=== PATIENT | male | born 1970 | race Caucasian/White ===

== ENCOUNTER 2018-12-03 12:10 | Inpatient (IN) | payer OTHER ==
[~2018-12-03] VITALS: Ht 185.4 cm; Wt 158.9 kg
[2018-12-03 12:12] VITALS: BP 156/92
[2018-12-03] MEDS ORDERED: LISINOPRIL10 MG PO (12:15)
[2018-12-03] MEDS ORDERED: CYMBALTA30 MG PO (12:16)
[2018-12-03] MEDS ORDERED: TRULICITY1.5 MG/0.5 SUBQ (12:17)
[2018-12-03] MEDS ORDERED: JARDIANCE25 MG PO (12:17)
[2018-12-03] MEDS ORDERED: DILTIAZEM HCL90 MG PO (12:18)
[2018-12-03] MEDS ORDERED: NEURONTIN 400400 M1 PO (12:18)
[2018-12-03 13:16] LABS: URINE BILIRUBIN NEGATIVE (Negative); URINE BLOOD TRACE (Negative); URINE CLARITY CLEAR; URINE COLOR YELLOW; URINE GLUCOSE-RANDOM* 3+ (Negative); URINE KETONES NEGATIVE (Negative); URINE LEUKOCYTES-REFLEX NEGATIVE (Negative); URINE NITRITE-REFLEX NEGATIVE (Negative); URINE PROTEIN (DIPSTICK) 2+ (Negative); URINE UROBILINOGEN 0.2 E.U./dl (0.2-1.0)
[2018-12-03 13:24] LABS: SQUAMOUS 0-3 Few /LPF (0-3)
[2018-12-03 13:25] LABS: BACTERIA-REFLEX None Seen /HPF (None Seen); CASTS None Seen /LPF (None Seen); CRYSTALS None Seen /LPF (None Seen); URINE RBC None Seen /HPF (0-2); URINE WBC-REFLEX 0-5 Rare /HPF (0-5)
[2018-12-03 13:41] LABS: ABSOLUTE NEUTROPHILS 7.4 thou/uL (1.4-8.2); BASOPHILS 0.7 % (0.0-2.0); EOSINOPHILS 0.8 % (0.0-3.0); HEMATOCRIT 39.9 % (42.0-52.0); HEMOGLOBIN 13.2 gm/dL (14.0-18.0); LYMPHOCYTES 21.4 % (24.0-44.0); MCH 28.8 pg (26.0-34.0); MCHC 33.1 g/dL (28.0-37.0); MCV 86.9 fL (80.0-100.0); MONOCYTES 7.2 % (1.0-8.0); PLATELET COUNT 328 thou/uL (150-400); POLYS 69.9 % (36.0-66.0); RDW 13.9 % (10.5-14.5); WBC 10.5 thou/uL (4.0-11.0)
[2018-12-03 13:49] LABS: CALCIUM 9.4 mg/dL (8.5-10.1); CREATININE 0.9 mg/dL (0.7-1.3); POTASSIUM 4.5 mmol/L (3.5-5.1)
[2018-12-03 13:55] LABS: ALBUMIN 2.7 g/dL (3.4-5.0); TOTAL BILIRUBIN 0.2 mg/dL (<0.1-1.0); TOTAL PROTEIN 8.3 g/dL (6.4-8.2)
[2018-12-03 16:17] VITALS: BP 147/85
[2018-12-03 17:10] VITALS: BP 153/93
--- NOTE | 2018-12-03 18:43 | NUR ---
ASSUMED CARE AT 1700, ADMISSION HISTORY AND EDUCATION DONE, MEDS GIVEN, ORDER ACKNOWLEDGED. WOUND PICTURE TAKEN. WILL CONTINUE TO ASSESS AND ASSIST WITH ADLs NEEDED.
[2018-12-03 19:40] VITALS: BP 145/85
--- NOTE | 2018-12-04 02:06 | NUR ---
[facility] 1899. PT ALERT AND ORIENTED. ADMISSION ASSESSMENT COMPLETE. IV DRESSING C/D/I. REPORTS PAIN, SEE EMAR. DENIES N/V. WET TO DRY DRESSING APPLIED TO TOE WOUND. CALL LIGHT AND PERSONAL BELONINGS WITHIN REACH, WILL CONTINUE POC UNTIL EOS.
[2018-12-04 05:58] LABS: ABSOLUTE NEUTROPHILS 5.3 thou/uL (1.4-8.2); BASOPHILS 0.7 % (0.0-2.0); EOSINOPHILS 1.5 % (0.0-3.0); HEMATOCRIT 38.2 % (42.0-52.0); HEMOGLOBIN 12.5 gm/dL (14.0-18.0); LYMPHOCYTES 24.7 % (24.0-44.0); MCH 28.6 pg (26.0-34.0); MCHC 32.7 g/dL (28.0-37.0); MCV 87.5 fL (80.0-100.0); MONOCYTES 8.5 % (1.0-8.0); PLATELET COUNT 310 thou/uL (150-400); POLYS 64.6 % (36.0-66.0); RBC 4.36 mil/uL (4.50-6.00); RDW 13.7 % (10.5-14.5); WBC 8.3 thou/uL (4.0-11.0)
[2018-12-04 06:03] LABS: CALCIUM 9.2 mg/dL (8.5-10.1); MAGNESIUM 1.9 mg/dL (1.8-2.4); POTASSIUM 5.3 mmol/L (3.5-5.1)
[2018-12-04 06:32] VITALS: BP 130/80
[2018-12-04 07:29] VITALS: BP 165/101
--- NOTE | 2018-12-04 09:27 | NUR ---
Pt assessed d/t screening risk for identified wound admit and BMI >40. Provider notes state L great toe infection. Per radiology impression, developing osteomyelitis not excluded. Hx: DM, diabetic foot ulcer, hx MSRA, osteo, PE/DVT, HTN. Met with pt at beside. He states appetite has been down the last few days "because of what is currently going on" (re: infection). Ate 20% dinner last night. Weight reduction not appropriate this visit, focused heavily on good nutrition, protein focus. Identified quality protein foods to choose, 1-2 sources/meal, and prioritizing protein first at meals while low appetite persists. He denies DM education d/t past education/understanding. AM BG 93 mg/dl. K+ currently high at 5.3. Malnutrition documented in provider note. Defer diagnosis at this time. No nutrition interventions desired by pt. Low nutrition risk at this time w / nutrition ed completed. Follow po trends.
--- NOTE | 2018-12-04 09:45 | NUR ---
PATIENT DISCHARGED FROM OT AT THIS TIME. IF PATIENT HAPPENS TO NEED A TOE AMPUTATION, WILL NEED NEW OT ORDERS TO RE-EVALUATE.
--- NOTE | 2018-12-04 15:07 | NUR ---
ASSESSMENT-PT LIVES IN AN APT ALONE. HE WALKS O N HIS OWN AND DOES HIS OWN ADLS. PT WAS WORKING AND DRIVING PRIOR TO ADMISSION. PT HAS HIS GIRLFRIEND IN THE AREA. CASE DISCUSSED WITH ATTENDING DR AND AWAITING WOUND CARE REC. FOR FURTHER DC PLANS AT THIS TIME. FOLLOWING TO ASSIST NEEDED.
[2018-12-04 16:13] VITALS: BP 167/87
--- NOTE | 2018-12-04 16:23 | NUR ---
WOUND CONSULT; ROUNDING WITH DR ABDUL AND MYRNA RN. THE RIGHT GREAT TOE IS GROSSLY INFECTED. THE PATIENT IS MISSING TOES ON THE SAME FOOT FROM A PROIR INFECTION AND IS WELL VERSED. SEE DR ABDUL'S NOTE. RECOMMENDATION; [facility] FOR NOW. SURGERY IS LIKLEY. DISCUSSED WITH STAFF
--- NOTE | 2018-12-04 16:58 | HC ---
[facility] [place] [address] CONSULTATION Name: MILLIE MUNOZ Room #: 422-P ADM IN M.R.#: [id number] Admission: 12/03/18 ������������������ Attend Phys: Lamont Lyle MD Discharge: ������������������ Date of : 70 Report #: [id number] THIS REPORT FOR: //name// CC: Flip Lyle DATE OF SERVICE: 12/03/2018 REASON FOR CONSULTATION: Evaluate left great toe gangrene. HISTORY OF PRESENT ILLNESS: The patient was a 48-year-old diabetic with peripheral neuropathy, previous left third, fourth and fifth toe amputations over the last several years, 2 weeks ago noted wound developed involving his left great toe. He found a jose nail in his shoe, treated as an outpatient with [id number] medications. Had not sought medical attention. Then worsened with increased pain in the toe, up his foot, lower leg into the medial aspect of his thigh and groin. No documented fever, chills or sweats. Overall, complains of malaise. Blood glucose levels he states had been less than 200, although he does note that his hemoglobin A1c was 11 last check. REVIEW OF SYSTEMS: Denies any cardiopulmonary, GI or complaints. Full 10-point review was negative other than what has been described above. ALLERGIES: None known. MEDICATIONS: As noted on his MAR including vancomycin and Zosyn. PAST MEDICAL HISTORY: Diabetes, hypertension, previous amputations of his left third, fourth and fifth toes. History of MRSA. Bilateral feet pulmonary emboli and DVT, previous renal failure, right ankle reconstructive surgery. FAMILY HISTORY: Noncontributory. SOCIAL HISTORY: Nonsmoker, no significant alcohol intake. 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 PHYSICAL EXAMINATION: VITAL SIGNS: Afebrile and hemodynamically stable. GENERAL: He is alert and cooperative and pleasant, in no acute distress. SKIN: With gangrene changes to his left first toe. Odorous drainage. Cellulitis extending up the left foot and lower leg with lymphangitis to his medial thigh and groin. Palpable adenopathy in the groin. Pulses were palpable on his foot. 2+ edema in the left lower leg. HEENT: Eyes without scleral icterus. Mouth without mucositis. NECK: Supple. LUNGS: Clear. [address] [address] CONSULTATION Name: MILLIE MUNOZ Room #: 422-P [facility] IN M.R.#: [id number] Admission: 12/03/18 ������������������ Attend Phys: Lamont Lyle MD Discharge: ������������������ Date of : 70 Report #: [id number] HEART: Regular, without murmur, gallop or rub. ABDOMEN: Soft and nontender with no hepatosplenomegaly or mass. GENITORECTAL: Not performed. NEUROLOGIC: Cranial nerves intact. Strength in his upper and lower extremities is normal. Sensation was decreased in his distal feet bilaterally. Mood normal. LABORATORY STUDIES: Reviewed. X-ray reviewed. Ultrasound of the venous system negative for DVT. Cultures reviewed, so far no growth. IMPRESSION: 1. Left great toe gangrene with evidence of osteomyelitis, distal phalanx. 2. Cellulitis and lymphangitis secondary to his toe infection. 3. Diabetes. 4. Peripheral neuropathy. 5. History of deep venous thrombosis, pulmonary embolism. 6. History of depression, controlled. 7. Hypertension. RECOMMENDATIONS: 1. We will continue broad antibiotic coverage. Surgical consultation for left toe amputation. This will need to be performed in order to gain control of this infection that is now involving the left foot and lower leg soft tissues. 2. Diabetic control. 3. Edema control. 4. We will continue combination antibiotic coverage pending culture results. ��������������������������������������������� <ELECTRONICALLY SIGNED> ���������������������������������������� By: Pramod Flores MD ��������������������������������������������� 12/04/18 1658 [id number] [id number] Pramod Flores MD /nt
[2018-12-04 19:52] VITALS: BP 133/85
--- NOTE | 2018-12-05 02:05 | NUR ---
ASSUMED PT CARE 1899. PT ALERT AND ORIENTED. REASSESSMENT COMPLETE. VSS. IV DRESSING C/D/I. DENIES N/V. REPORTS PAIN, SEE EMAR. CALL LIGHT WITHIN REACH, WILL CONTINUE POC UNTIL EOS
[2018-12-05 04:17] VITALS: BP 130/62
[2018-12-05 08:00] VITALS: BP 134/72
--- NOTE | 2018-12-05 12:36 | NUR ---
PATIENT ARE WAS ASSUMED AT 0715.PATIENT IS ALERT AND ORIENTED X4.PT HAS BEEN NPO AFTER MIDNIGHT, EXCEPT FOR A FEW MEDS IN THE AM.PATIENT IS SCHEDULED FOR SURGERY FOR L GREAT TOE AMPUTATION BY DR. Tamayo.PATIENT'S VITALS ARE STABLE, AT ROOM AIR,ACCU CHECK IS AT 77, NO INSULIN GIVEN,AND IV IS PATENT AND SALINE LOCKED.PATIENT HAS COMPLAINTS OF PAIN 10/10, PATIENT WAS GIVEN IV PAIN MEDS.PATIENT'S SURGERY CONSENT WAS SIGNED AND IN FRONT OF THE CHART.
--- NOTE | 2018-12-05 17:10 | O ---
[facility] [place] [address] OPERATIVE REPORT Name: MILLIE MUNOZ Room #: 422-P ADM IN M.R.#: [id number] Admission: 12/03/18 ������������������ Attend Phys: Lamont Lyle MD Discharge: ������������������ Date of : 70 Report #: [id number] THIS REPORT FOR: //name// CC: Flip Lyle DATE OF SERVICE: 12/05/2018 SERVICE: Orthopedics. FACILITY: [facility]. SURGEON: Fer Dai MD [employer] ATTENDANT: Madeline Reagan NP PREOPERATIVE DIAGNOSES: 1. Diabetes mellitus. 2. Diabetic foot wound, left foot. 3. Left great toe gangrene with osteomyelitis. 4. Status post previous left third, fourth and fifth toe amputations. POSTOPERATIVE DIAGNOSES: 1. Diabetes mellitus. 2. Diabetic foot wound, left foot. 3. Left great toe gangrene with osteomyelitis. 4. Status post previous left third, fourth and fifth toe amputations. PROCEDURE: Transmetatarsal amputation, left foot. COMPLICATIONS: None. DRAINS: None. SPECIMENS: Toes sent for pathology. ESTIMATED BLOOD LOSS: 5 mL. FINDINGS: 1. Amputation performed through the transmetatarsal level at the first and second toes. The wounds from the previous third, fourth and fifth amputations are completely healed and without any pathology, so no work was done there. 2. Transmetatarsal amputation performed in order to have appropriate contouring for both cosmesis and wound flap stability. HISTORY: The patient is a 48-year-old gentleman with diabetes, who had a jose [facility] [address] [place] [address] OPERATIVE REPORT Name: MILLIE MUNOZ Room #: 422-P ADM IN M.R.#: [id number] Admission: 12/03/18 ������������������ Attend Phys: Lamont Lyle MD Discharge: ������������������ Date of : 70 Report #: [id number] nail in his shoe that led to a diabetic wound. He presented to Emergency Room, was admitted to hospital, was placed on IV antibiotics. His wound indicated severe infection with osteomyelitis noted on the x-rays and so we had discussion about treatment options. He has previously had his third, fourth and fifth toes amputated and has had some complicated medical history related to these, prior diabetes complications. I felt that amputation of both the first and the second was most appropriate, that way it avoided the potential of future infection in the second toe and further surgery for another amputation as well as allowed for the cosmetic appearance of the foot postoperatively. In addition, this provides some additional skin for successful closure of the forefoot at the time of today's amputation. The patient was fully in agreement with this plan. Risks, benefits, alternatives and indications of surgery were discussed with him in detail. Risks included but not limited to pain, bleeding, infection, recurrence of the complication, wound breakdown, need for further surgery as well as complications related to anesthesia such as stroke, heart attack, pulmonary complications, thromboembolic disease and . Despite these risks, he wished to proceed. PROCEDURE IN DETAIL: After left lower extremity was correctly identified in the preop holding area as operative extremity, the patient was taken to the operating room where general anesthesia was induced without complication. He was padded appropriately. Prophylactic antibiotics were not administered as he is on antibiotic regimen currently. Tourniquet was applied to the left calf. Left leg was prepped and draped in standard sterile fashion. Timeout procedure was performed. Esmarch was not utilized. The leg was elevated and then tourniquet was inflated to 250 mmHg. An ellipsoid incision was made including the first and second toes proximal to the area of pathology. Full thickness skin flaps were taken down to the level of the bone and then an amputation was performed of the first and second toes through the metatarsophalangeal joints, both of these rays. The toe specimen was then passed off and the distal aspect of the metatarsals of the first and second were exposed, allowing access to the distal aspect of the metaphysis. Bone cutter was used to resect the articular segments and the metatarsal heads on both the first and the second. The sesamoids were removed as well. The wound was thoroughly irrigated. Tourniquet was let down, hemostasis was achieved. The edges were contoured so that there was a smooth surface on the bone for both the first and second metatarsals. Then we proceeded with closing. The deep layer was closed with an 0 Vicryl suture in [id number] fashion and then the skin was closed with a 3-0 Vicryl subcutaneous stitch, and then a 3-0 nylon diagonal mattress suture with suture knots placed dorsally. A soft sterile dressing was then applied. The patient was awakened from anesthesia and [address] [address] OPERATIVE REPORT Name: ALEXANDERMILLIE Room #: 422-P [facility] IN M.R.#: [id number] Admission: 12/03/18 ������������������ Attend Phys: Lamont Lyle MD Discharge: ������������������ Date of : 70 Report #: [id number] taken to recovery room in stable condition. No complications. All counts were correct. ��������������������������������������������� <ELECTRONICALLY SIGNED> ���������������������������������������� By: Fer Dai MD ��������������������������������������������� 12/05/18 1710 1312 1617 Fer Dai MD /nt
[2018-12-05 17:21] VITALS: BP 125/71
[2018-12-05 20:40] VITALS: BP 107/75
--- NOTE | 2018-12-06 04:41 | NUR ---
ASSUMED PT CARE 19+00. PT ALERT AND ORIENTED. REASSESSMENT COMPLETE. VSS. I DRESSING C/D/I. DRESSUING TO L FOOT C/D/I. PT REPORTS PAIN, SEE EMAR. DENIES N/V. CALL LIGHT WITHIN REACH, WILL CONTINUE POC UNTIL EOS.
[2018-12-06 05:51] VITALS: BP 112/69
[2018-12-06 05:54] LABS: HEMATOCRIT 38.9 % (42.0-52.0); HEMOGLOBIN 12.7 gm/dL (14.0-18.0); MCH 28.4 pg (26.0-34.0); MCHC 32.7 g/dL (28.0-37.0); MCV 86.9 fL (80.0-100.0); RBC 4.47 mil/uL (4.50-6.00); RDW 13.8 % (10.5-14.5); WBC 8.1 thou/uL (4.0-11.0)
[2018-12-06 06:20] LABS: POTASSIUM 4.7 mmol/L (3.5-5.1)
[2018-12-06 08:20] VITALS: BP 130/77
[2018-12-06 16:06] VITALS: BP 157/77
--- NOTE | 2018-12-06 16:31 | NUR ---
Assumed care of pt at 0700. Pt alert and oriented x4. Dressing clean and intact on left foot. Non-weight bearing on the left lower extremity. Pain controlled with prn pain medications. Call light within reach. Will continue to monitor.
[2018-12-06 19:47] VITALS: BP 153/88
[2018-12-07 03:52] VITALS: BP 160/77
--- NOTE | 2018-12-07 06:00 | NUR ---
A VERY DELIGHTFUL GENTLEMAN. LEFT GREAT TOE AMPUTATION SITE DRESSING DRY AND INTACT. FOOT WARM AND PINK. DILAUDID FOR PAIN. SLEPT AT INTERVALS TONIGHT VOIDING. WILL CONT TO MONITOR.
[2018-12-07 07:59] VITALS: BP 161/100
--- NOTE | 2018-12-07 08:26 | HC ---
[facility] [place] [address] CONSULTATION Name: MILLIE MUNZO Room #: 422-P [facility] IN M.R.#: [id number] Admission: 12/03/18 ������������������ Attend Phys: Lamont Lyle MD Discharge: ������������������ Date of : 70 Report #: [id number] THIS REPORT FOR: //name// CC: Flip Lyle DATE OF SERVICE: 12/04/2018 CHIEF COMPLAINT: Necrosis of the left great toe. HISTORY OF PRESENT ILLNESS: This is a 48-year-old male patient with a history of diabetes mellitus and prior osteomyelitis with multiple amputations of his third, fourth and fifth toes of the left foot. He apparently stepped on a jose nail about a week to 10 days ago and developed infection, drainage, odor, necrosis of the great toe. He was admitted through the Emergency Department with progressive swelling, drainage and necrosis. No fever, chills, vomiting or diarrhea. PAST MEDICAL HISTORY: Positive for history of diabetes mellitus with a history of osteomyelitis, previous amputations of the third, fourth and fifth toes, history of renal failure, MRSA infection, prior osteomyelitis as well as hypertension. SOCIAL HISTORY: Negative for alcohol or tobacco use. FAMILY HISTORY: Noncontributory. CURRENT MEDICATIONS: Include lisinopril, Cymbalta, Trulicity, Jardiance, Cardizem and Neurontin. ALLERGIES: No known drug allergies. REVIEW OF SYSTEMS: CONSTITUTIONAL: The patient denies fever, chills or weight loss. NEUROLOGICAL: The patient denies focal weakness, numbness or tingling. EYES: The patient denies visual changes, redness or drainage. ENT: The patient denies earache, nasal drainage or sore throat. CARDIOVASCULAR: The patient denies chest pain, palpitation or diaphoresis. PULMONARY: The patient denies cough or shortness of breath. GASTROINTESTINAL: The patient denies nausea, vomiting, diarrhea or abdominal pain. ORTHOPEDIC: The patient notes the ulceration and necrosis of his left great toe. Other systems in a 14-point review of systems are negative. PHYSICAL EXAMINATION: [facility] [address] [place] [address] CONSULTATION Name: MILLIE MUNOZ Room #: 422-P [facility] IN M.R.#: [id number] Admission: 12/03/18 ������������������ Attend Phys: Lamont Lyle MD Discharge: ������������������ Date of : 70 Report #: [id number] VITAL SIGNS: At this time include temperature 36.9, pulse 86, respiratory rate 19, blood pressure 165/101. GENERAL: This is a well-developed, well-nourished male patient who appears to be in minimal distress. HEENT: Head is normocephalic. Nose and throat clear. NECK: Supple. LUNGS: Clear. ABDOMEN: Soft. Bowel sounds present. EXTREMITIES: Lower extremities demonstrate palpable distal pulses. He has surgical absence of the third, fourth and fifth toes of the left foot. He has the great toe of the left foot as necrotic, swollen, erythematous, draining with foul smell. NEUROLOGIC: The patient is alert and oriented and appropriate. LABORATORY DATA: White blood cell count 8.3, hemoglobin 12.5, hematocrit 38.2, white blood cell count 138. Potassium 5.3, chloride 105, CO2 of 26, BUN 15, creatinine 1.0, glucose 103, calcium 9.2, magnesium 1.9. Albumin is low at 2.7. Arterial Doppler shows no evidence of significant left lower extremity arterial disease. X-ray evaluation of the left foot demonstrates soft tissue swelling over the first digit with soft tissue defect suggested over the first digit with soft tissue swelling. There is suggestion of some mild periosteal reaction and cortical thickening along the proximal medial aspect of the distal phalanx developing osteomyelitis not excluded. CLINICAL IMPRESSION: 1. Gangrenous change with infection of the left great toe. 2. Diabetes mellitus. 3. History of prior amputations of the third, fourth and fifth toes of the left foot. 4. Probable osteomyelitis. 5. Moderate protein calorie malnutrition. RECOMMENDATIONS: At this point in time, the patient will likely require surgical removal of the toe. Since he only has a second toe in addition to the great toe, a transmetatarsal amputation may be the most functional option for him. Orthopedics has been consulted. He will need intravenous antibiotic therapy. We will continue to follow him. I do not feel that there is any wound care options to preserve the integrity of his toe. I appreciate being asked to see him in consultation. ��������������������������������������������� <ELECTRONICALLY SIGNED> ���������������������������������������� By: Sergio Peña MD ��������������������������������������������� 12/07/18 0826 1533 0559 Sergio Peña MD /nt
--- NOTE | 2018-12-07 16:27 | NUR ---
ASSUMED CARE OF PT AT 0700. ASSESSMENT CHARTED. A&O,X4. C/O 10 LEFT FOOT AND TOE PAIN POD2, PAIN MEDS GIVEN ORDERED. SURGICAL DRESSING INTACT, CHANGED TODAY BY WOUND NURSE. NEW DAILY DRESSING CHANGES ORDERED. EDGAR SNIDERE. PT UP TO CHAIR WITH P.T. TODAY. ACHS, NO INSULIN GIVEN PER SLIDING SCALE. VSS. WILL CONTINUE TO MONITOR FREQUENTLY UNTIL EOS.
--- NOTE | 2018-12-07 17:11 | NUR ---
FAXED IV ABX ORDERS TO [facility] WITH H&P, ID PROGRESS NOTE AND NOTIFIED [facility] OF NEED FOR IV ABX AT DC. [facility] TO ISSUE A ROLLER WALKER FOR HOME ONCE DC DATE IS KNOWN.
--- NOTE | 2018-12-07 18:19 | NUR ---
Spoke with PT today who reports patient needs a bariatric knee scooter not offered here at [facility]. Patient weight 350. Sp with [facility] they do not have any Knee scooters. Sp with Jennifer they have no bariatric scooters encouraged casemgt to contact [facility], they do not contract with [facility]. [facility]. Cont to inquire into company provider.
--- NOTE | 2018-12-07 19:41 | NUR ---
CONSULTED TO PLACE A PICC FOR A PATIENT DISCHARGING ON HOME IV ANTIBIOTICS. ORDER AND CONSENT NOTED. THE PROCEDURE WELL BENIFITS AND RISK FOR DVT AND INFECTION DISCUSSED. HE VERBALIZED UNDERSTANDING. THE LEFT UPPER ARM BASILIC WAS WIDLEY PATENT. A #4F SINGLE LUMEN POWER PICC WAS PLACED PER HOSPITAL POLICY AFTER A BEDSIDE TIMEOUT WAS COMPLETE. LINE WAS 55CM AND ADVANCED WITHOUT DIFFICULTY. A STAT CHEST XRAY WAS ORDERED TO CONFIRM PLACEMENT
[2018-12-07 19:45] VITALS: BP 158/82
[2018-12-08] VITALS (7 sets, daily range): BP systolic 116–149; BP diastolic 72–96
--- NOTE | 2018-12-08 03:50 | NUR ---
[facility] PT CARE 1899. PT ALERT AND ORIENTED. REASSESSMENT COMPLETE, VSS. PICC INSERTED AND PLACEMENT CONFIRMED. REPORTS 02/18 PAIN, SEE EMAR. DENIES N/V. CALL LIGHT AND PERSONAL BELONINGS WITHIN REACH, WILL CONTINUE POC UNTIL EOS.
--- NOTE | 2018-12-08 10:00 | NUR ---
PT LYING IN BED. PT COMPLAINING OF PAIN TO LEFT FOOT OF 10 ON 1-10 SCALE. PT HAS PEDAL PULSE TO LEFT FOOT +2. NO SWELLING NOTICED. PT HAS PICC LINE TO LEFT UPPER ARM. PT NOT ABLE TO BEAR WEIGHT TO LEFT FOOT. PT STATED LAST BM 2 DAYS AGO. PT HAS BOWEL SOUNDS. GIVING PO HYDROCODONE, PT STATED HE WANTS DILAUDID NOW. ENCOURAGED PT TO TAKE PO MED SO IT WILL LAST LONGER. PT TAKING DILAUDID ON REG. BASIS. REMINDED PT HE WILL NOT BE ABLE TO TAKE IV PAIN MED AT HOME. PT LUNGS CLEAR. ADM HYDROCODONE 5MG PO AT 0954, THEN DILAUDID 1.5MG IV AT 1001.
--- NOTE | 2018-12-08 14:30 | NUR ---
IV NURSE HERE TO SHOW PT HOW TO USE PICC LINE FOR ANTIBIOTICS. ADM DILAUDID 1.5MG IV FOR PAIN TO LEFT FOOT. PT HAS BEEN UP IN CHAIR SINCE AROUND NOON.
--- NOTE | 2018-12-08 14:39 | NUR ---
ADM DILAUDID 1.5MG IV FOR PAIN TO LEFT FOOT.
--- NOTE | 2018-12-08 16:16 | NUR ---
ADM HYDROCODONE 5MG PO FOR PAIN TO LEFT FOOT.
--- NOTE | 2018-12-08 17:07 | NUR ---
PROVIDED PT WITH HIS IV ABX COVERAGE FOLLOWS [place] [id number] ded which he has met $160.09 and a $3500 out of pocket max which he has met $1755.56, he understands that depening on who bills first the hospital or the infusion company until he meets deductible his cost will be $701.05 then his 20% cost will drop to $140.21 per week. HE IS NOT INTERESTED IN GOING TO A SKILLED UNIT. [facility] ISSUED HIM A HEAVY DUTY ROLLER WALKER. HE SAYS HIS GIRLFRIEND WILL BE ABLE TO TRANSPORT HIM HOME. GIRLFRIEND IS A NURSE PRACTIONER. PT HAS DONE IV ABX IN THE PAST. ALERTED [facility] TO START CARE TOMORROW. PT WILL BE COMFORTABLE DOING HIS 2300 DOSE TONIGHT. STILL AWAITING FINAL DC ORDERS FOR TODAY. DIXIE FROM [employer] HERE TO DO IV ABX TEACHING THIS AFTERNOON.
[2018-12-08] MEDS ORDERED: MEROPENEM 1 GM V1 GM IV (18:11)
[2018-12-08] MEDS ORDERED: PERCOCET 10-321 EACH PO (18:12)
--- NOTE | 2018-12-08 19:56 | NUR ---
ADM DILAUDID 1.5MG IV FOR PAIN TO LEFT FOOT OF 10 ON 1-10 SCALE. HIS RIDE WILL NOT BE ABLE TO GET HIM UNTIL REAL LATE TONIGHT, GIRLFRIEND FLIGHT DELAYED AT THIS TIME. PT HAS BEEN UP IN CHAIR SINCE 1300.
[2018-12-09 03:47] VITALS: BP 128/75
--- NOTE | 2018-12-09 04:19 | NUR ---
ASSUMED CARE OF PT @1900. PT ASSESSED AT START OF SHIFT SITTING UP IN CHAIR PT A&OX4 WITH C/O LEFT FOOT PAIN. PAIN MED GIVEN FOR MANAGEMENT SEE EMAR. ABX INFUSING AND POC DONE. GIRLFRIEND ARRIVED TO UNIT AND AT BEDSIDE FOR THE NIGHT. @0130 PT TRANSFERRED BACK IN BED FOR THE NIGHT. WILL CONTINUE TO MONITOR TILL EOS
[2018-12-09 07:50] VITALS: BP 146/93
--- NOTE | 2018-12-09 12:01 | NUR ---
BARIATRIC KNEE SCOOTER LOCATED ON [employer] AND ALSO ON [employer] WEBSITE FOR AROUNF $145. PT WAS PROVIDED THIS INFORMTION. FINAL ORDERS FAXED TO [facility] AM.
--- NOTE | 2018-12-09 16:13 | NUR ---
ORDER FOR HEEL/TOE OFFLOADING BOOT OBTAINED AND FAXED TO [facility] REP HERE TO DELIVER ITEM AND PLACE ON PT'S FOOT. PHY TX HERE TO MAKE SURE PT AWARE HE IS TO BE NON-WT BEARING BUT CAN USE THIS FOR BALANCE ONLY WITH WALKER. DISCUSSED WITH THUY ALEXANDER NP.
[2018-12-09 16:58] VITALS: BP 174/62
[2018-12-09 17:00] VITALS: BP 136/83
--- NOTE | 2018-12-09 17:11 | PATH ---
[facility] [address] [place] [address] PATHOLOGY RPT PROCEDURE Name: MILLIE MUNOZ Room #: 422-P ADM IN M.R.#: [id number] ������������������ Admission: 12/03/18 ������������������ Date of : 70 Discharge: Report #: [id number] Path Case #: [id number] LCA Accession Number: [id number] . 01 Material submitted: . toe - LEFT 1ST AND 2ND TOES. Modifiers: left, first, second . 01 Clinical history: . Osteomyelitis left first and second toe . 02 Diagnosis: Toes, left first and second toes, amputation: - Marked acute inflammation involving skin, subcutaneous tissue and extending to underlying bone associated with acute osteomyelitis. - Margins of bone viable and free of acute inflammation. (IUV/db; 12/09/2018) LBQ/12/09/2018 . 02 Electronically signed: . Jelena Corrales MD, Pathologist NPI- [id number] . 01 Gross description: . The specimen is received in formalin, labeled "Millie Munoz, left first and second toes". Received are two amputated digits measuring 9.1 x 4.7 x 3.9 and 6.3 x 2.8 x 2.4 cm, with an overall total measurement of 9.3 x 7.4 x 3.9 cm in greatest dimensions. The bone margins are smooth and concave in appearance, consistent with disarticulation. The bone and soft tissue margins of the great toe are inked black and the bone and soft tissue margins of the second toe are inked blue. The nail of the great toe is light rivera and thickened in appearance. The epidermal surface on the dorsal and continued onto the plantar aspect displays a poorly circumscribed, irregular in contour, flaky and light rivera to gautam-brown lesion measuring 6.4 x 5.8 cm, which is 0.7 cm from the closest skin margin. The nail of the second toe is pale rivera and grossly unremarkable. The epidermal surface is pale rivera and wrinkled in appearance with no grossly distinct lesions. At the proximal aspect of the great toe, there is a slight amount of attached additional metatarsal bone during 1.5 x 1.0 x 1.0 cm in greatest dimensions. The specimen is submitted appeals representative as well as: . A1 appeals representative cross section of attached additional metatarsal bone on great toe, following decalcification A2-A5 full-thickness longitudinal cross-section of great toe, from proximal to distal aspects, following decalcification A6-A8 full-thickness longitudinal cross-section of second toe, from proximal to distal aspects, following decalcification. [address] [address] PATHOLOGY RPT PROCEDURE Name: MILLIE MUNOZ Room #: 422-P ADM IN M.R.#: [id number] ������������������ Admission: 07/25/19 ������������������ Date of : 70 Discharge: Report #: [id number] Path Case #: [id number] (CAA; 12/08/2018) QAC/QAC . 02 Pathologist provided ICD-10: M86.172 . 02 CPT . 142712, [id number] Specimen Comment: A courtesy copy of this report has been sent to Specimen Comment: [phone], , . Specimen Comment: Report sent to ,DR ONTIVEROS / DR DE LA CRUZ Performed at: [address] [facility] [address], [place] [id number] MD Nahid Foreman MD Phone: [phone] Performed at: [address] [facility] [address] [id number] MD Jelena Corrales MD Phone: [phone]
[2018-12-09 17:18] VITALS: BP 136/83
--- NOTE | 2018-12-09 18:21 | NUR ---
DISCHARGE PAPERS GONE OVER SIGNED AND COPY IN CHART. PICC IV IN PLACE TO LEFT UPPER ARM. PT TO HAVE HOME HEALTH AND IV ABT. ALL BELONGINGS PACKED AND SENT WITH PATIENT.
[2018-12-09 18:31] VITALS: BP 136/83
== END 2018-12-09 18:42 | disposition home health service (06) | DRG 616 ==
LOC: ER 12:10 → EROBS 15:18 → 4E 15:18
PROVIDERS: Nurse Practitioner; Orthopaedic Surgery Sports Medicine; Physician Assistant; ADMIT Internal Medicine
PROC: 0Y6N0Z9 Detachment at Left Foot, Partial 1st Ray, Open Approach (ICD-10-PCS; principal; 2018-12-05)
PROC: 0Y6N0ZB Detachment at Left Foot, Partial 2nd Ray, Open Approach (ICD-10-PCS; principal; 2018-12-05)
PROC: 02HV33Z Insertion of Infusion Device into Superior Vena Cava, Percutaneous Approach (ICD-10-PCS; 2018-12-07)
DX: E11.69 Type 2 diabetes mellitus with other specified complication (principal); E43 Unspecified severe protein-calorie malnutrition; I96 Gangrene, not elsewhere classified; L03.116 Cellulitis of left lower limb; M86.172 Other acute osteomyelitis, left ankle and foot; Z68.42 Body mass index [BMI] 45.0-49.9, adult; E11.621 Type 2 diabetes mellitus with foot ulcer; E11.628 Type 2 diabetes mellitus with other skin complications; E66.9 Obesity, unspecified; I10 Essential (primary) hypertension; E11.42 Type 2 diabetes mellitus with diabetic polyneuropathy; F32.9 Major depressive disorder, single episode, unspecified; Z86.718 Personal history of other venous thrombosis and embolism; Z86.711 Personal history of pulmonary embolism; Z79.899 Other long term (current) drug therapy; Z89.422 Acquired absence of other left toe(s); Z23 Encounter for immunization
CPT/HCPCS: 10084; 27000; 50010; 50101; 50386; 56526; 56527; 56528; 57091; 62110; 62900; 70005

== ENCOUNTER → 2018-12-16 | Outpatient (CLI) | payer OTHER ==
[~2018-12-16] MED LIST: CYMBALTA30 MG PO; DILTIAZEM HCL90 MG PO; JARDIANCE25 MG PO; LISINOPRIL10 MG PO; MEROPENEM 1 GM V1 GM IV; NEURONTIN 400400 M1 PO; PERCOCET 10-321 EACH PO; TRULICITY1.5 MG/0.5 SUBQ
== END ==
LOC: HYPER 06:54
DX: T87.89 Other complications of amputation stump (principal); L97.512 Non-pressure chronic ulcer of other part of right foot with fat layer exposed; E11.621 Type 2 diabetes mellitus with foot ulcer; E11.69 Type 2 diabetes mellitus with other specified complication; M86.372 Chronic multifocal osteomyelitis, left ankle and foot; L03.116 Cellulitis of left lower limb; E11.40 Type 2 diabetes mellitus with diabetic neuropathy, unspecified; E40 Kwashiorkor; R60.0 Localized edema; Z86.711 Personal history of pulmonary embolism; Z79.84 Long term (current) use of oral hypoglycemic drugs; Z86.718 Personal history of other venous thrombosis and embolism; Y83.5 Amputation of limb(s) as the cause of abnormal reaction of the patient, or of later complication, without mention of misadventure at the time of the procedure

== ENCOUNTER → 2018-12-24 | Outpatient (CLI) | payer OTHER | LOC: HYPER 06:40 | DX: T81.89XD Other complications of procedures, not elsewhere classified, subsequent encounter (principal); E11.621 Type 2 diabetes mellitus with foot ulcer; L97.512 Non-pressure chronic ulcer of other part of right foot with fat layer exposed; E11.69 Type 2 diabetes mellitus with other specified complication; M86.372 Chronic multifocal osteomyelitis, left ankle and foot; L03.116 Cellulitis of left lower limb; L03.115 Cellulitis of right lower limb; R60.0 Localized edema; E11.40 Type 2 diabetes mellitus with diabetic neuropathy, unspecified; E44.0 Moderate protein-calorie malnutrition; Z68.42 Body mass index [BMI] 45.0-49.9, adult; Z79.84 Long term (current) use of oral hypoglycemic drugs; Z86.718 Personal history of other venous thrombosis and embolism; Z86.711 Personal history of pulmonary embolism; Z89.422 Acquired absence of other left toe(s); Y83.8 Other surgical procedures as the cause of abnormal reaction of the patient, or of later complication, without mention of misadventure at the time of the procedure ==

== ENCOUNTER → 2019-01-14 | Outpatient (CLI) | payer OTHER | LOC: HYPER 07:30 | DX: T81.89XD Other complications of procedures, not elsewhere classified, subsequent encounter (principal); L97.512 Non-pressure chronic ulcer of other part of right foot with fat layer exposed; E11.621 Type 2 diabetes mellitus with foot ulcer; L84 Corns and callosities; L03.116 Cellulitis of left lower limb; L03.115 Cellulitis of right lower limb; E11.40 Type 2 diabetes mellitus with diabetic neuropathy, unspecified; E11.69 Type 2 diabetes mellitus with other specified complication; M86.372 Chronic multifocal osteomyelitis, left ankle and foot; E44.0 Moderate protein-calorie malnutrition; R60.0 Localized edema; Z89.422 Acquired absence of other left toe(s); Z86.718 Personal history of other venous thrombosis and embolism; Z79.84 Long term (current) use of oral hypoglycemic drugs; Y83.8 Other surgical procedures as the cause of abnormal reaction of the patient, or of later complication, without mention of misadventure at the time of the procedure ==

== ENCOUNTER → 2019-04-22 | Outpatient (CLI) | payer OTHER | LOC: HYPER 09:33 | DX: T81.31XD Disruption of external operation (surgical) wound, not elsewhere classified, subsequent encounter (principal); L03.115 Cellulitis of right lower limb; L03.116 Cellulitis of left lower limb; E11.40 Type 2 diabetes mellitus with diabetic neuropathy, unspecified; E44.0 Moderate protein-calorie malnutrition; E11.69 Type 2 diabetes mellitus with other specified complication; M86.372 Chronic multifocal osteomyelitis, left ankle and foot; L84 Corns and callosities; R60.0 Localized edema; Z86.711 Personal history of pulmonary embolism; Z86.718 Personal history of other venous thrombosis and embolism; Z79.84 Long term (current) use of oral hypoglycemic drugs; Z89.422 Acquired absence of other left toe(s); Y83.8 Other surgical procedures as the cause of abnormal reaction of the patient, or of later complication, without mention of misadventure at the time of the procedure ==

== ENCOUNTER → 2019-05-11 | Outpatient (CLI) | payer OTHER | LOC: HYPER 15:34 | DX: T81.31XD Disruption of external operation (surgical) wound, not elsewhere classified, subsequent encounter (principal); E11.621 Type 2 diabetes mellitus with foot ulcer; L97.521 Non-pressure chronic ulcer of other part of left foot limited to breakdown of skin; L84 Corns and callosities; L03.116 Cellulitis of left lower limb; L03.115 Cellulitis of right lower limb; E11.40 Type 2 diabetes mellitus with diabetic neuropathy, unspecified; E44.0 Moderate protein-calorie malnutrition; E11.69 Type 2 diabetes mellitus with other specified complication; M86.372 Chronic multifocal osteomyelitis, left ankle and foot; R60.0 Localized edema; Z89.422 Acquired absence of other left toe(s); Z86.718 Personal history of other venous thrombosis and embolism; Z79.84 Long term (current) use of oral hypoglycemic drugs; Y83.8 Other surgical procedures as the cause of abnormal reaction of the patient, or of later complication, without mention of misadventure at the time of the procedure ==

== ENCOUNTER → 2019-05-27 | Outpatient (CLI) | payer OTHER | LOC: HYPER 10:48 | DX: T81.31XD Disruption of external operation (surgical) wound, not elsewhere classified, subsequent encounter (principal); E11.621 Type 2 diabetes mellitus with foot ulcer; L97.522 Non-pressure chronic ulcer of other part of left foot with fat layer exposed; S91.302D Unspecified open wound, left foot, subsequent encounter; E11.69 Type 2 diabetes mellitus with other specified complication; M86.372 Chronic multifocal osteomyelitis, left ankle and foot; E11.40 Type 2 diabetes mellitus with diabetic neuropathy, unspecified; E44.0 Moderate protein-calorie malnutrition; R60.0 Localized edema; Z79.84 Long term (current) use of oral hypoglycemic drugs; Z89.422 Acquired absence of other left toe(s); Z86.718 Personal history of other venous thrombosis and embolism; Z86.711 Personal history of pulmonary embolism; X58.XXXD Exposure to other specified factors, subsequent encounter; Y83.8 Other surgical procedures as the cause of abnormal reaction of the patient, or of later complication, without mention of misadventure at the time of the procedure ==

== ENCOUNTER 2019-06-08 16:21 | Inpatient (IN) | payer OTHER ==
[~2019-06-08] VITALS: Ht 185.4 cm; Wt 170.1 kg
[2019-06-08 16:21] VITALS: BP 191/98
[2019-06-08] MEDS ORDERED: TRESIBA FL200 UNIT/1 SUBQ (16:47)
[2019-06-08] MEDS ORDERED: HUMALOG KW100 UNIT/1 SUBQ (16:47)
[2019-06-08 17:39] LABS: ABSOLUTE NEUTROPHILS 10.5 thou/uL (1.4-8.2); BASOPHILS 0.5 % (0.0-2.0); HEMATOCRIT 38.3 % (42.0-52.0); HEMOGLOBIN 12.4 gm/dL (14.0-18.0); LYMPHOCYTES 12.8 % (24.0-44.0); MCH 27.4 pg (26.0-34.0); MCHC 32.3 g/dL (28.0-37.0); MCV 84.9 fL (80.0-100.0); MONOCYTES 7.8 % (1.0-8.0); PLATELET COUNT 396 thou/uL (150-400); POLYS 77.9 % (36.0-66.0); RBC 4.51 mil/uL (4.50-6.00); RDW 14.5 % (10.5-14.5); WBC 13.5 thou/uL (4.0-11.0)
[2019-06-08 17:45] LABS: CALCIUM 9.8 mg/dL (8.5-10.1); CREATININE 1.6 mg/dL (0.7-1.3); POTASSIUM 4.6 mmol/L (3.5-5.1)
[2019-06-08 21:00] VITALS: BP 175/80
[2019-06-08 21:26] VITALS: BP 175/80
[2019-06-08 21:55] VITALS: BP 144/79
[2019-06-09 04:07] VITALS: BP 152/70
--- NOTE | 2019-06-09 04:58 | NUR ---
ADMITTED FROM ER UNDER 'S CARE. AXOX4. ISO FOR PREVIOUS MRSA. LFOOT CELLULITIS WITH DIABETIC FOOT ULCER. AM VITALS NOTED WITH TACHYCARDIA, TEMP 100.6. CALLED ANETA KIRK PLUMBING INSPECTOR AND REPORTED ABNORMAL VITAL SIGNS. ANETA KIRK SAID, PT IS BEING HYDRATED AND INITAIATED ON IV ATB, HAVING GOOD URINE OUTPUT. MONITOR FOR FURTHER CHAGNES PER STAFF ANALYST. WILL ENDORSE. PAIN TX PER MD ORDER. WILL CONT TO MONITOR CLOSELY
[2019-06-09 05:46] LABS: HEMATOCRIT 35.9 % (42.0-52.0); HEMOGLOBIN 11.3 gm/dL (14.0-18.0); MCH 26.9 pg (26.0-34.0); MCHC 31.6 g/dL (28.0-37.0); MCV 85.3 fL (80.0-100.0); RBC 4.21 mil/uL (4.50-6.00); RDW 14.7 % (10.5-14.5); WBC 12.2 thou/uL (4.0-11.0)
[2019-06-09 06:21] LABS: CALCIUM 8.4 mg/dL (8.5-10.1); CREATININE 1.4 mg/dL (0.7-1.3); POTASSIUM 4.5 mmol/L (3.5-5.1)
[2019-06-09 07:20] VITALS: BP 145/73
--- NOTE | 2019-06-09 13:33 | NUR ---
PT ADMITTED RELATED TO CELLULITIS, DIABETIC FOOT ULCER. CM REVIEWED CHART AND SPOKE WITH CARE TEAM. CM MET WITH PT AT BEDSIDE THIS DAY. PT IS A&O X4. CM ROLE INTRODUCED. PT INDICATED HE LIVES IN A RANCH STYLE HOUSE WITH 2 STEPS TO ENTER AND 2 STEPS INSIDE. 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 PT HAS A GIRLFRIEND WHO MAY BE ABLE TO ASSIST IS NEEDED UPON DC. PT INDICATED HE HAS A FWW SHOULD HE NEED IT UPON DC. PT HAD BEEN ON SERVICE WITH [facility] AND [facility] IN THE PAST. PT INDICATED HE PLANS TO RETURN HOME ONCE MEDICALLY STABLE.
--- NOTE | 2019-06-09 14:04 | NUR ---
WOUND CARE CONSULT; THE LEFT FOOT PLANTAR SURFACE WAS ASSESSED. A FISSURE WITH BRUISING. NO DRAINAGE AT THIS TIME. THE FOOT SEEMS WARMER ON THE LEFT THAN THE RIGHT. WE ARE AWAITING MRI RESULTS. RECOMMEDNATIONS; 1-DAILY FOLLOW UP 2-A BORDER FOAM DISCUSSED WITH STAFF
[2019-06-09 15:30] VITALS: BP 175/79
[2019-06-09 19:12] VITALS: BP 146/57
--- NOTE | 2019-06-09 19:59 | NUR ---
Received awake on bed. Due medications given as prescribed. On nothing per orem- pt informed and aware. Vital signs stable. On room air. A+Ox4. On blood sugar monitoring, taken and recorded accordingly, with sliding scale insulin given as prescribed. Continent of bowel and bladder, able to use toilet. With NS at 100cc/hr, infusing well at L AC. With wound at L leg, dressing in place, seen by wound team today, dressing changed. Maintained on isolation due to MRSA. Assisted in ADLs. Mouth care and ice chips provided. A/W MRI, checklist accomplished. Pt with critical value of Vanc 21.0, lab informed me at 0700am- found out that pt's Vanc trough was supposed to be drawn at 2330 instead lab did it at 0400- Dr Kaye, lab staff and pharmacy informed, re-ordered vanc trough at 2330. Pt went down for MRI, tolerated procedure well, transferred to room safely.Pt seen by Dr Crump- asked if pt can resume diet or with plans to have surgery today- as per Dr Crump, no surgery scheduled for today, to resume diet, will a/w MRI results and possible ortho consult, ?OM. Ortho consult called in by US, Dr Verma called back. Pt seen by Dr Verma- XR ordered, for NPO post midnight, possible surgery if Dr Valdez is available- maintenance mechanic 2nd shift nurse informed. Pt complaining of pain, due PRN pain medications given as prescribed. To continue monitoring patient.
[2019-06-10] VITALS (9 sets, daily range): BP systolic 116–147; BP diastolic 62–77
--- NOTE | 2019-06-10 04:15 | NUR ---
ASSUMED CARE AROUND 1914. AXOX4. ISO MAINTAINED, KEPT NPO POST MN FOR POSSIBLE ORTHO SURGERY IN AM. PAIN MEDS GIVEN PER MD ORDER. IV ATB TX CHANGED PER ID . NO S/S ACUTE DISTRESS NOTED OR REPORTED AT THIS TIME. WILL CONT TO MONITOR FOR ANY CHANGES IN CONDITION.
[2019-06-10 06:15] LABS: HEMATOCRIT 34.1 % (42.0-52.0); HEMOGLOBIN 10.9 gm/dL (14.0-18.0); MCH 27.3 pg (26.0-34.0); MCHC 31.9 g/dL (28.0-37.0); MCV 85.6 fL (80.0-100.0); RBC 3.99 mil/uL (4.50-6.00); RDW 14.6 % (10.5-14.5); WBC 9.9 thou/uL (4.0-11.0)
[2019-06-10 06:27] LABS: CALCIUM 8.8 mg/dL (8.5-10.1); CREATININE 1.4 mg/dL (0.7-1.3); POTASSIUM 3.8 mmol/L (3.5-5.1)
--- NOTE | 2019-06-10 11:51 | HC ---
[facility] [place] [address] CONSULTATION Name: MILLIE MUNOZ Room #: 453-P ADM IN M.R.#: [id number] Admission: 06/08/19 Attend Phys: Leroy Haines MD Discharge: Date of : 70 Report #: [id number] THIS REPORT FOR: //name// CC: Flip Haines DATE OF SERVICE: 06/09/2019 CHIEF COMPLAINT: Left foot infection. HISTORY OF PRESENT ILLNESS: This heavy 48-year-old gentleman has chronic diabetes and peripheral vascular disease. He has had previous left foot problems with transmetatarsal amputation in the past. He developed a small wound at the distal aspect of the third metatarsal, which was debrided 2 months ago. That wound appeared to heal in, but he now has more pain and swelling. MRI studies suggest a persistent abscess and involvement of the third metatarsal with suggestion of osteomyelitis extending all the way back to the base. The other metatarsals do not seem to be involved on MRI. On clinical exam, the left foot is tender and slightly puffy, but the skin and soft tissues appear to be generally healthy and well perfused. The small wound at the plantar aspect distally is actually healed and dry. There is no drainage. He has only mild discomfort along the medial and lateral aspect, but more significant discomfort in the mid foot, consistent with osteomyelitis involving the third metatarsal. I have reviewed the MRI images, but do not at this point have plain x-rays to give me a better sense of the bony architecture. I have had a lengthy discussion with the patient. Clearly, there appears to be an abscess and osteomyelitis involving the third metatarsal. I think this will require more aggressive debridement with complete removal of the third metatarsal. The next question is whether we can achieve soft tissue healing and maintain length in the other metatarsals at this point. If this is not feasible, then shortening back to the tarsometatarsal joint level would be the next option. Clearly, if he has further persistent infection, then a below-knee amputation may be required. Today, the soft tissue appearance would suggest that a more distal resection may be successful. I will review new x-rays when they are available. I am uncertain about OR scheduling opportunities. I will also try to discuss this with my partner, Dr. Valdez, who is our foot and ankle specialist. Pending these issues, we will talk again and consider whether surgical debridement might be feasible. <ELECTRONICALLY SIGNED> By: Jimeenz Verma MD 06/10/19 1151 1746 0447 Jimenez Verma MD /nt
--- NOTE | 2019-06-10 12:56 | NUR ---
PT WENT DOWN FOR DEBRIDEMENT OF LEFT FOOT AND EXCISION OF 3RD METATARSAL. CM TO FOLLOW INDICATED WITH DC PLANNING.
--- NOTE | 2019-06-10 14:23 | NUR ---
WOUND F/U; I WAS ASKED TO SEE THIS PATIENT BECAUSE OF ALARMS. THE VAC PROBLEM WAS IDENTIFIIED AND REPAIRED. DISCUSSED WITH RN
--- NOTE | 2019-06-10 21:31 | NUR ---
PT RECEIVED SURGERY TODAY. WOUND VAC IN PLACE AND FUNCTIONAL. SANGUINOUS DRAINAGE OF 50ML NOTED AT END OF SHIFT. PT REPORTS PAIN /. MEDS GIVEN ORDERED. PT PAIN DECREASED SLIGHTLY. PROVIDER NOTIFIED AND ORDERS RECEIVED. DISCUSSED PAIN MANAGEMENT WITH PATIENT AND HIS SIGNIFICANT OTHER, BOTH AGREEABLE WITH PLAN FOR PAIN CONTROL. PATIENT VOIDED ONETIME POSTOPERATIVELY. DENIES ANY NAUSEA. PT BEGAN CLEAR LIQUID DIET BUT NEEDS ENCOURAGEMENT TO TAKE IN NUTRITION. FALL PRECAUTIONS IN PLACE.
[2019-06-11 00:47] VITALS: BP 127/73
--- NOTE | 2019-06-11 06:26 | NUR ---
PT AOX4. PT REPORTS 8-9/10 PAIN IN LEFT FOOT. PT RECEIVING PRN IV MORPHINE Q4HR AND PRN PO OXYCODONE. PT DENIES SOA ON ROOM AIR. PT ABLE TO REPOSITION INDEPENDENTLY. PT TOLERATING CLEAR LIQUID PO INTAKE WITHOUT ISSUE. PT RESTING IN BED THROUGHOUT SHIFT. ENCOURAGED TO NOTIFY STAFF FOR ALL NEEDS. CALL LIGHT WITHIN REACH, BED ALARM ON, BED IN LOWEST POSITION.
--- NOTE | 2019-06-11 07:32 | O ---
[place] [address] OPERATIVE REPORT Name: MILLIE MUNOZ Room #: 453-P ADM IN M.R.#: [id number] Admission: 06/08/19 Attend Phys: Leroy Haines MD Discharge: Date of : 70 Report #: [id number] THIS REPORT FOR: //name// CC: Flip Haines DATE OF SERVICE: 06/10/2019 PREOPERATIVE DIAGNOSIS: Infected left foot with third metatarsal osteomyelitis and abscess. POSTOPERATIVE DIAGNOSIS: Infected left foot with third metatarsal osteomyelitis and abscess. PROCEDURE: Debridement, left foot with excision of infected third metatarsal. SURGEON: Jimenez Verma MD INDICATIONS: This heavy 48-year-old gentleman with chronic diabetes and peripheral vascular disease has had multiple previous surgical procedures on the left foot. He now has a persistent wound, infected with MRSA and evidence of osteomyelitis involving the third metatarsal. This extends through most of that bone, but the other mid foot does not seem to be involved. We have discussed treatment options including a very short mid foot amputation or below-knee amputation. He understands, but hopes to preserve his foot if possible. Therefore, we have elected to go ahead with debridement of the obviously infected third metatarsal and associated soft tissues. He understands this may or may not heal in and he may require more proximal amputation in the future. DESCRIPTION OF PROCEDURE: The patient was taken to the operating room where he was placed under general anesthesia. He is already on an antibiotic regimen. The left foot and leg were meticulously prepped and draped and a thigh tourniquet inflated to 350 mmHg. A dorsal longitudinal skin incision was made overlying the third metatarsal. This was carried through subcutaneous tissues to expose the bone. There was obvious atrophy and disruption of the bone with surrounding soft tissue edema consistent with infection or abscess. An aggressive debridement of both the soft tissues and any remnants of the third metatarsal was performed. The second and fourth metatarsals seemed to be intact with reasonable strength and stability. I did not feel further debridement of those bones was necessary. The more distal aspect of the wound extended to the small skin wound, which had been previously debrided some months ago at the distal plantar aspect. This area was included in the wound and aggressively irrigated using pulsatile lavage. A C-arm view was obtained demonstrating that there was complete resection of the third metatarsal. The other bones appear to be intact and stable on this plain x-ray. The tourniquet was deflated. Good hemostasis was established. There seems to be adequate blood flow to the soft [address] [address] OPERATIVE REPORT Name: MILLIE MUNOZ Room #: 453-P [facility] IN M.R.#: [id number] Admission: 06/08/19 Attend Phys: Leroy Haines MD Discharge: Date of : 70 Report #: [id number] tissues. A wound VAC was placed in the wound. Sterile dressing was applied. The patient was awakened and returned to recovery room in good condition. <ELECTRONICALLY SIGNED> By: Jimenez Verma MD 06/11/19 0732 1147 1213 Jimenez Verma MD /nt
[2019-06-11 07:50] VITALS: BP 118/64
--- NOTE | 2019-06-11 11:11 | HC ---
[facility] [place] [address] CONSULTATION Name: MILLIE MUNOZ Room #: 453-P ADM IN M.R.#: [id number] Admission: 06/08/19 Attend Phys: Leroy Haines MD Discharge: Date of : 70 Report #: [id number] THIS REPORT FOR: //name// cc: Flip Hickey James A. DO ~ THIS REPORT FOR: //name// CC: Jimenez Crump Sherri Haines DATE OF SERVICE: 06/10/2019 WOUND CARE CONSULTATION PERSONAL PHYSICIAN: Dr. Hickey. CHIEF COMPLAINT: Left foot surgical wound. HISTORY OF PRESENT ILLNESS: This is a 48-year-old white male we have been following in the wound clinic for a surgical wound on his left foot, secondary to diabetic foot ulcer and subsequent osteomyelitis. The patient had initial surgical debridement several weeks ago by Dr. Crump, and was actually doing fairly well until recently. His left foot started having increased swelling despite being on Augmentin and Bactrim. The patient was seen by Dr. Crump in his office, had x-rays that showed third metatarsal destruction of the proximal shaft. The patient then was sent to the Emergency Department and was seen in consultation by Dr. Jimenez Verma, and was taken to the operating room where he had debridement of left foot on the dorsal aspect and excision of the third metatarsal. The patient had wound VAC placed in the operating room, and we have been asked to assist in the care of the wound at this time. PAST MEDICAL HISTORY: Significant for diabetes mellitus, acute on chronic kidney disease, peripheral neuropathy, previous foot surgeries secondary to osteomyelitis. The patient has a history of hypertension, DVT, pulmonary embolism. CURRENT MEDICATIONS: Multiple, I have reviewed the patient's medication list. DRUG ALLERGIES: None. SOCIAL HISTORY: The patient does not smoke or drink alcohol. FAMILY HISTORY: Not pertinent to current medical condition. [address] [address] CONSULTATION Name: MILLIE MUNOZ Room #: 453-P ADM IN M.R.#: [id number] Admission: 06/08/19 Attend Phys: Leroy Haines MD Discharge: Date of : 70 Report #: [id number] REVIEW OF SYSTEMS: CONSTITUTIONAL: The patient denies fevers or chills at this time. NEUROLOGIC: The patient complains of some mild sedation at this time secondary to the recent surgery earlier today. Denies any numbness, tingling or weakness in arms or legs. EYES: No complaints. ENT: No complaints. CARDIAC: The patient denies chest pain or palpitations. He has chronic lower extremity edema. RESPIRATORY: The patient denies shortness of breath, cough or wheezes. GASTROINTESTINAL: The patient denies nausea, vomiting or abdominal pain. GENITOURINARY: The patient denies urgency or frequency. MUSCULOSKELETAL: No complaints. SKIN: The patient has a surgical wound on the left foot with a wound VAC in place. PHYSICAL EXAMINATION: VITAL SIGNS: The patient is afebrile, pulse 88, respirations 16, BP 123/71. GENERAL: This is an alert and oriented x 3, slightly groggy white male who is in no obvious distress. HEENT: He is normocephalic, atraumatic. Mucous membranes are dry. Pupils are round, sclerae white. NECK: Supple, nontender. LUNGS: Clear. HEART: Regular. ABDOMEN: Soft, nontender. EXTREMITIES: The patient moves all extremities without difficulty. Evaluation of bilateral lower extremities reveals 1+ edema. Distal pulses intact. The patient is neuropathic in his lower extremities. Evaluation of the left foot reveals a wound VAC to be in place and functioning well at 125 mmHg suction, continuous. The wound is on the dorsal aspect of the foot, plantar aspect of the foot is intact. Bilateral heels are intact. NEUROLOGIC: Cranial nerves 2-12 grossly intact. Motor and sensory grossly intact. LABORATORY DATA: White count 9.9, hemoglobin 10.9. Sed rate 101, BUN 39, creatinine 1.4, albumin 2.7. IMPRESSION: 1. Surgical wound on dorsal aspect of the left foot, status post excision of osteomyelitic third metatarsal. 2. History of third metatarsal osteomyelitis. 3. Diabetes mellitus. 4. Protein-calorie malnutrition ? moderate with albumin of 2.7. 5. Hypertension. 6. History of deep venous thrombosis with pulmonary embolism. [address] [address] CONSULTATION Name: MILLIE MUNOZ Room #: 453-P [facility] IN M.R.#: [id number] Admission: 06/08/19 Attend Phys: Leroy Haiens MD Discharge: Date of : 70 Report #: [id number] PLAN: We will continue with the wound VAC therapy to the left foot, 125 mmHg continuous suction; we will change this 3 times weekly. Continue with IV antibiotics per Infectious Disease. I spoke with the orthopedic surgeon, Dr. Jimenez Verma. He said at this time, he does not plan any further orthopedic surgical interventions, and we will continue to manage the wound and he will be available if necessary. We will maximize the patient's oral protein supplementation for healing. We will utilize physical and occupational therapy for strengthening as the patient is able. We will continue all other current medications as well. We will continue to follow the patient. <ELECTRONICALLY SIGNED> By: Bryant Lobo MD 06/11/19 1111 1812 0152 Bryant Lobo MD /nt
[2019-06-11 11:57] VITALS: BP 155/89
--- NOTE | 2019-06-11 13:00 | NUR ---
Nutrition: Pt assessed for BMI > 40 (49.5 kg/m2). Also seen for identification of wounds. Admit: cellulitis, diabetic foot ulcer. Is s/p surgery 06/10 with debridement of L foot and excision of 3rd metatarsal. Has a wound vac. Per EMR, may possibly need more aggressive, higher amputation if fails to heal. Visited at bedside. Pt limited to clear liquids yesterday and so far this AM. Diet may be advanced later today. Discussed nutrition importance and increased protein needs. Educated on all food sources of high quality protein. Presented oral nutrition supplement options. Pt declined all supplements, even Beneprotein modular, prefering to focus on real food sources. Recommended goal of 2 per meal. Otherwise, no other nutrition concerns. Pt very accepting of nutrition information. Low nutrition risk.
--- NOTE | 2019-06-11 14:38 | NUR ---
CARE TEAM INDICATED THAT PT HAD WOUND VAC PLACED YESTERDAY AND THAT PT IS GETTING IV ABX AND CONTINUED WOUND CARE. IT IS ANTICPATED THAT PT WILL BE HERE OVER THE WEEKEND. CM TO FOLLOW INDICATED WITH DC PLANNING.
--- NOTE | 2019-06-11 18:10 | NUR ---
CONSULTED TO PLACE A PICC FOR HOME IV ANTIBIOTICS. ORDER AND CONSENT NOTED. A #4F SINGLE LUMEN PICC WAS PLACED PER HOSPITAL POLICY AFTER A BEDSIDE TIMEOUT WAS COMPLETE. PICC WAS TRIMMED TO 53CM AND ADVANCED WITHOUT DIFFICULTY. LINE WAS CONFIRMED IN GOOD POSITION BY A STAT CHEST XRAY
--- NOTE | 2019-06-11 18:42 | NUR ---
Assumed pt care this am, wound vac in place and draining sanguinous fluids. Pt requires pain meds on the dot and no relief is notes for long periods. Maintained on clear liquids, blood sugar checks done with insulin as per emar given. VS stable, Isolation maintained. POC followed, transferred to 447, endorsed to the night nurse.
[2019-06-11 21:50] VITALS: BP 154/87
--- NOTE | 2019-06-12 03:13 | NUR ---
06/11/191929 ASSUMED CARE OF PT AFTER BEDSIDE REPORT. PT RESTING IN BED STATES PAIN TO LEFT FOOT 2044 ASSESSMENT COMPLETED, SEE ASSESSMENT. PT WITH COMPLAINTS OF PAIN TO L FOOT, WOUND VAC IN PLACE AND SUCTION PRESENT. PICC LINE FLUSHED WELL AFTER BLOOD RETURN, IV ABX INFUSING ORDERED. PAIN MEDS GIVEN PER DR ORDER PRN FOR PAIN, WILL CONTINUE WITH HOURLY ROUNDING. PT CHANGES POSITIONS ON HIS OWN AND USES A BUCKET FOR URINATION.
[2019-06-12 04:45] LABS: HEMOGLOBIN 10.5 gm/dL (14.0-18.0); MCH 26.9 pg (26.0-34.0); MCHC 31.8 g/dL (28.0-37.0); MCV 84.6 fL (80.0-100.0); RBC 3.9 mil/uL (4.50-6.00); RDW 14.6 % (10.5-14.5); WBC 6.6 thou/uL (4.0-11.0)
[2019-06-12 05:15] VITALS: BP 137/80
[2019-06-12 05:40] LABS: CALCIUM 8.6 mg/dL (8.5-10.1); POTASSIUM 3.9 mmol/L (3.5-5.1)
[2019-06-12 08:26] VITALS: BP 162/87
[2019-06-12 17:02] VITALS: BP 151/82
[2019-06-12 19:52] VITALS: BP 135/75
--- NOTE | 2019-06-12 21:43 | NUR ---
ASSESSMENT COMPLETED.PT SIITING IN THE CHAIR. WOUND VAC IN PLACE AND WORKING FINE. AFEBRILE.DENIES NAUSEA. PT LEVEL OF PAIN IS 7. PT WANTS TO WAIT AND GET MOPHINE IN 45 MINS.
[2019-06-13 04:03] VITALS: BP 139/90
[2019-06-13 07:55] VITALS: BP 151/80
--- NOTE | 2019-06-13 10:06 | PATH ---
[facility] [address] [place] [address] PATHOLOGY RPT PROCEDURE Name: MILLIE MUNOZ Room #: 438-P ADM IN M.R.#: [id number] Admission: 06/08/19 Date of : 70 Discharge: Report #: [id number] Path Case #: [id number] [facility] Accession Number: [id number] . 01 Material submitted: . toe - LEFT THRID METATARSAL. Modifiers: left, third . 01 Clinical history: . Infected left foot with osteomyelitis. . 02 Diagnosis: Third left metatarsal, debridement: - Bone with marked acute osteomyelitis as well as osteonecrosis. (IUV/db; 06/11/2019) LBQ 06/11/2019 1542 Local . 02 Electronically signed: . Jelena Corrales MD, Pathologist NPI- [id number] . 01 Gross description: . Received in formalin labeled "Millie Munoz, left third metatarsal" are two irregular portions of rivera-white bone measuring 1.7 x 1.7 x 1.4 cm and 3.0 x 2.4 x 1.4 cm. Multiple surgical resection margins are identified. The specimen is not inked due to its fragmented nature. Temporary Staff Accountant sections of both pieces are submitted in cassettes A1-A2 following decalcification. ([facility]; 06/10/2019) [facility] 06/10/2019 1724 Local . 02 Pathologist provided ICD-10: M86.172, M87.9 . 02 CPT . 439740, 345460 Specimen Comment: A courtesy copy of this report has been sent to [phone] Specimen Comment: [phone], Specimen Comment: Report sent to ,DR BAUTISTA / DR DE LA CRUZ Performed at: [address], [place], [place] [id number] MD Nahid Foreman MD Phone: [phone] Performed at: [address] [id number] MD Jelena Corrales MD Phone: [phone]
[2019-06-13 16:13] VITALS: BP 145/86
[2019-06-13 19:40] VITALS: BP 148/83
--- NOTE | 2019-06-14 02:56 | NUR ---
ASSUMED PT CARE AT 1900. PT REPORTS PAIN 02/18, MORPHINE PROVIDING RELIEF. ANTIBIOTICS AND FLUIDS INFUSING PER ORDER. ISOLATION D/C TONIGHT. WOUND VAC DRAINING PROPERLY. PICC LINE FLUSHED WITH GOOD BLOOD RETURN. PT IN CHAIR WATCHING TV ALL EVENING.
[2019-06-14 03:40] VITALS: BP 136/72
[2019-06-14 05:23] LABS: HEMATOCRIT 35.2 % (42.0-52.0); HEMOGLOBIN 11.2 gm/dL (14.0-18.0); MCH 26.8 pg (26.0-34.0); MCHC 31.8 g/dL (28.0-37.0); MCV 84.1 fL (80.0-100.0); RBC 4.18 mil/uL (4.50-6.00); RDW 14.3 % (10.5-14.5); WBC 6.8 thou/uL (4.0-11.0)
[2019-06-14 05:39] LABS: CALCIUM 8.9 mg/dL (8.5-10.1); CREATININE 0.9 mg/dL (0.7-1.3); POTASSIUM 4.1 mmol/L (3.5-5.1)
[2019-06-14 07:39] VITALS: BP 154/83
--- NOTE | 2019-06-14 15:19 | NUR ---
CARE TEAM INDICATED THAT PT IS PROGRESSING TOWARD GOAL OF DISCHRGE. IT WAS INDICATED THAT PT WILL NEED HOME INFUSION, HOME HEALTH, AND A HOME WOUND VAC UPON DC. CM MET WITH PT AT BEDSIDE AND HE IS AWARE AND AGREEABLE WITH THESE SERVICES. PT HAD USED [facility] IN THE PAST [facility] AND INDICATED THAT REFERRALS COULD BE SENT TO BOTH. DC [employer] ARCHITECT FAXED CM FAXED TO [facility]. LILLY WITH WOUND CARE ORDERED VAC FOR HOME. CM AWAITING FINAL RECS FROM ID. CM TO FOLLOW INDICATED WITH DC PLANNING.
--- NOTE | 2019-06-14 15:43 | NUR ---
WOUND CONSULT; THE WOUND BED LOOKS BEEFY RED WITH SOME CAPPILARY BLEEDING. THETHIS IS A SURGICAL WOUND APPROX 6 X 2 X 3CM. NO S/S OF INFECTION. THIS WOUND IS READY FOR A WOUND VAC. WOUND VAC TO BE APPLIED. PT EDUCATED. DISCUSSED WITH CARI
[2019-06-14 16:16] VITALS: BP 144/81
[2019-06-14 20:31] VITALS: BP 160/49
--- NOTE | 2019-06-15 02:03 | NUR ---
PT AOX4. PT REPORTS 8-10/10 PAIN IN LEFT FOOT. PT RECEIVING PRN PO OXYCODONE Q4HR AND PRN IV MORPHINE Q4HR. PT REPORTS PAIN IN WORSE WITH TACTILE STIMULATION AND DRESSING CHANGES. WOUND VAC IN PLACE, SEROSANGUINEOUS DRAINAGE NOTED, CONTINUES TO FUNCTION WITHOUT ISSUE. PT AMBULATING INDEPENDENTLY, USING BASIN FOR URINAL. PT TOLERATING PO INTAKE WITHOUT ISSUE. PT ANTICIPATING DISCHARGE SOON. ENCOURAGED PT TO NOTIFY STAFF FOR ALL NEEDS. CALL LIGHT WITHIN REACH, BED ALARM ON, BED IN LOWEST POSITION. WILL CONTINUE TO MONITOR.
[2019-06-15 04:25] VITALS: BP 140/79
[2019-06-15 08:18] VITALS: BP 144/83
[2019-06-15 09:47] VITALS: BP 144/83
[2019-06-15] MEDS ORDERED: ANCEF 1GM1 GM/50 M2 IV (12:32)
[2019-06-15 13:09] VITALS: BP 144/83
--- NOTE | 2019-06-15 14:21 | NUR ---
PT DISCHARGING TODAY TO HOME WITH [facility] FAXED DC ORDERS/SUMMARY TO [facility] SPOKE WITH ASH IN INTAKE THEY RECEIVED DC ORDERS AND WILL NOTIFY PT TIME OF VISITS. FAXED DC ORDERS/SUMMARY TO [facility] FOR IV ABX INFUSION SPOKE WITH SEDA AND SHE RECEIVED DC ORDERS.
[2019-06-15] MEDS ORDERED: OXYCODONE HCL10 MG PO (14:22)
--- NOTE | 2019-06-15 15:38 | NUR ---
PT TO DISCHARGE HOME THIS DAY. PT TO HAVE [facility], [facility], AND HAS HOME [facility] WOUND VAC. ORDERS HAVE BEEN SENT TO ALL SERVICE PROVIDERS. PT WAS ISSUED A SPECIAL SHOE FOR USE UPON DC. NO OTHER CM INTERVENTION INDICATED. CASE CLOSED.
--- NOTE | 2019-06-15 16:03 | NUR ---
Assumed care of pt at 0700. Pt a&ox4. Wound vac in place. Prn pain meds administered per pt request. Home health nurse taught pt about home infusions. Will d/c with picc line. Home wound vac delivered in the hospital. Hospital shoe delivered as well. Pt will discharge to home.
== END 2019-06-15 16:00 | disposition home health service (06) | DRG 853 ==
LOC: ER 16:21 → 4W 19:41 → EROBS 19:41 → 4W 21:11 → 4S 06-11 17:53 → ENTRNSPT 06-15 15:57 → 4S 06-15 16:00
PROVIDERS: Emergency Medicine; Hospitalist; Nurse Practitioner Family; ADMIT Internal Medicine
PROC: 0QTP0ZZ Resection of Left Metatarsal, Open Approach (ICD-10-PCS; principal; 2019-06-10)
DX: A41.9 Sepsis, unspecified organism (principal); N17.0 Acute kidney failure with tubular necrosis; M86.172 Other acute osteomyelitis, left ankle and foot; N17.9 Acute kidney failure, unspecified; E11.69 Type 2 diabetes mellitus with other specified complication; E11.621 Type 2 diabetes mellitus with foot ulcer; L97.529 Non-pressure chronic ulcer of other part of left foot with unspecified severity; E11.22 Type 2 diabetes mellitus with diabetic chronic kidney disease; I12.9 Hypertensive chronic kidney disease with stage 1 through stage 4 chronic kidney disease, or unspecified chronic kidney disease; N18.9 Chronic kidney disease, unspecified; E11.42 Type 2 diabetes mellitus with diabetic polyneuropathy; Z22.322 Carrier or suspected carrier of Methicillin resistant Staphylococcus aureus; Z86.711 Personal history of pulmonary embolism; Z79.01 Long term (current) use of anticoagulants; Z86.718 Personal history of other venous thrombosis and embolism; Z89.429 Acquired absence of other toe(s), unspecified side; Z79.4 Long term (current) use of insulin; Z79.899 Other long term (current) drug therapy
CPT/HCPCS: 10040; 10102; 10195; 27000; 50010; 50101; 50386; 50445; 50643; 50970; 53078; 57091; 57103; 57180; 62110; 62900; 70005

== ENCOUNTER → 2019-06-23 | Outpatient (CLI) | payer OTHER ==
[~2019-06-23] MED LIST changes: +ANCEF 1GM1 GM/50 M2 IV; +HUMALOG KW100 UNIT/1 SUBQ; +OXYCODONE HCL10 MG PO; +TRESIBA FL200 UNIT/1 SUBQ
== END ==
LOC: HYPER 09:54
DX: T81.31XA Disruption of external operation (surgical) wound, not elsewhere classified, initial encounter (principal); E11.621 Type 2 diabetes mellitus with foot ulcer; L97.522 Non-pressure chronic ulcer of other part of left foot with fat layer exposed; L84 Corns and callosities; E11.69 Type 2 diabetes mellitus with other specified complication; M86.372 Chronic multifocal osteomyelitis, left ankle and foot; E11.40 Type 2 diabetes mellitus with diabetic neuropathy, unspecified; E44.0 Moderate protein-calorie malnutrition; R60.0 Localized edema; Z79.84 Long term (current) use of oral hypoglycemic drugs; Z89.422 Acquired absence of other left toe(s); Z86.718 Personal history of other venous thrombosis and embolism; Y92.89 Other specified places as the place of occurrence of the external cause; Y83.8 Other surgical procedures as the cause of abnormal reaction of the patient, or of later complication, without mention of misadventure at the time of the procedure

== ENCOUNTER 2019-07-02 13:55 | Inpatient (IN) | payer OTHER ==
[~2019-07-02] VITALS: Ht 185.4 cm; Wt 162.0 kg
[2019-07-02 13:56] VITALS: BP 123/90
[2019-07-02 14:34] LABS: ABSOLUTE NEUTROPHILS 4.2 thou/uL (1.4-8.2); BASOPHILS 1.3 % (0.0-2.0); EOSINOPHILS 2.4 % (0.0-3.0); HEMATOCRIT 45.2 % (42.0-52.0); HEMOGLOBIN 14.5 gm/dL (14.0-18.0); LYMPHOCYTES 29.7 % (24.0-44.0); MCH 27.1 pg (26.0-34.0); MCHC 32.1 g/dL (28.0-37.0); MCV 84.4 fL (80.0-100.0); PLATELET COUNT 104 thou/uL (150-400); POLYS 58.6 % (36.0-66.0); RBC 5.35 mil/uL (4.50-6.00); RDW 15.6 % (10.5-14.5); WBC 7.2 thou/uL (4.0-11.0)
[2019-07-02 14:43] LABS: CALCIUM 9.8 mg/dL (8.5-10.1); CREATININE 1.7 mg/dL (0.7-1.3)
[2019-07-02 14:44] LABS: BE(vivo) -8.4 mmol/L (-2 to +3); HCO3 14.7 mmol/L (22.0-26.0); PCO2 25.1 mmHg (35.0-45.0); PO2 79.2 mmHg (80.0-100.0); pH 7.385 (7.360-7.450); sO2 95.8 % (92.0-98.0)
[2019-07-02 14:54] LABS: ALBUMIN 3.8 g/dL (3.4-5.0); TOTAL BILIRUBIN 0.5 mg/dL (<0.1-1.0); TOTAL PROTEIN 9.6 g/dL (6.4-8.2); TROPONIN-I 0.29 ng/mL (<0.06)
--- NOTE | 2019-07-02 16:25 | EKG ---
[facility] [place] [address] ELECTROCARDIOGRAM REPORT Name: MILLIE MUNOZ Room #: 170-8 ADM IN M.R.#: [id number] Admission: 07/02/19 Attend Phys: Rubi Dewey Discharge: Date of : 70 Report #: [id number] THIS REPORT FOR: cc: Flip Hickey James A. 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: LUCAS : 1970 Requested By: Ladarius Helms Order Number: [id number] MD: Dutch Montes Measurements Intervals [place]ding Rate: 114 P: 72 OK: 172 QRS: 28 QRSD: 100 T: -41 QT: 357 QTc: 492 Interpretive Statements Sinus tachycardia Poor R wave progression Nonspecific ST and T wave abnormality Borderline prolonged QT interval No previous ECG available for comparison Electronically Signed On 07-02-2019 16:24:44 CHIEF WRITER by Dutch Montes [email or web address] <ELECTRONICALLY SIGNED> By: Dutch Montes MD, [facility] 07/02/19 1624 1424 1424 Dutch Montes MD, [facility] /EPI
[2019-07-02 17:02] VITALS: BP 140/94
--- NOTE | 2019-07-02 17:20 | NUR ---
REPORT CALLED TO CARI CORDON
[2019-07-02 17:35] VITALS: BP 131/91
--- NOTE | 2019-07-02 17:59 | NUR ---
PATIENT ADMITTED TO ROOM. HE IS ON NON BREATHER. OXYGEN AT 100%. NO COMPLAIN OF PAIN NOTED. WOUND VAC TO TOES. WILL CONT WITH PLAN OF CARE.
[2019-07-02 18:10] VITALS: BP 141/111
[2019-07-02 19:45] VITALS: BP 128/86
--- NOTE | 2019-07-03 00:20 | NUR ---
SPOKE WITH PTS CARLOS BY PHONE (ODESSA VINES). SHE STATES THAT PT HAD A FULL CARDIAC WORK UP IN MAY/Jun. HE WAS THEN IN [facility]. THE CARDIOLOGY GROUP NAME WAS "[facility]." THE CARDIOLOGISTS NAME WAS "PATSY CARLOS." THE PHONE NUMBER IS "[phone]" AND THE FAX NUMBER IS "[phone]." ODESSA REPORTS THAT HIS WORKUP WAS "NORMAL" AND DOES NOT RECALL ANYTHING REGARDING PULMONARY HYPERTENSION OR ANY HEART FAILURE. "HE HAS A ECHO AND A STRESS TEST." SHE FURTHER STATED THAT THE STRESS TEST WAS NORMAL. WILL PASS THIS INFORMATION TO THE DAY RN.
[2019-07-03 00:33] VITALS: BP 99/46
[2019-07-03 04:45] VITALS: BP 101/65
[2019-07-03 05:11] LABS: CALCIUM 9.1 mg/dL (8.5-10.1); CREATININE 1.9 mg/dL (0.7-1.3); POTASSIUM 4.4 mmol/L (3.5-5.1); TROPONIN-I 0.48 ng/mL (<0.06)
--- NOTE | 2019-07-03 06:06 | NUR ---
PT MAKING SLOW PROGRESS TOWARDS GOALS. X2 DOSES OF PERCOCET GIVEN OVERNIGHT. SEE CHARTING. WOUND VACK ON LEFT FOOT. PT HAS PUMP AND IT APPEARS TO FUNCTIONING APPROPRIATELY. 7-9/10 PAIN LEFT FOOT. CHEST DISCOMFORT IS DESCRIBED "HEAVINESS" OR "PRESSURE. LIKE A BRICK IS ON MY CHEST." PERSISTENT/CONSTANT STATE OF CHEST DISCOMFORT THAT HE RATED 5/10 THROUGHOUT THE NIGHT. PT ON VENTURI MASK AT 50%. HAD BEEN ON NRB MASK, TRANSITIONED TO O2 6L PER NC TO BE ABLE TO EAT AND USE THE PHONE. PT REPORTING THAT HE DIDN'T FEEL HE COULD GET ENOUGH OXYGEN WITH THE NASAL CANNULA AND WAS THUS TRANSITIONED TO THE VENTURI MASK. PT REPORTED THAT THIS HELPED HIM BREATHE EASIER.
[2019-07-03 07:18] VITALS: BP 93/61
--- NOTE | 2019-07-03 10:56 | 2DMMODE ---
[facility] [place] [address] 2 D/M-MODE ECHOCARDIOGRAM Name: MILLIE MUNOZ Room #: 360-P ADM IN M.R.#: [id number] Admission: 07/02/19 Attend Phys: Rubi Frank Josefaced Discharge: Date of : 70 Report #: [id number] THIS REPORT FOR: cc: Flip Hickey James A. DO Lammoglia, Francisco J. MD ~ APPROVED REPORT Study performed: 07/03/2019 08:12:44 EXAM: Comprehensive 2D, Doppler, and color-flow Echocardiogram Patient Location: Bedside Room #: 360 Status: on-call BSA: 2.72 HR: 87 bpm BP: 93/61 mmHg Rhythm: NSR Other Information Study Quality: Adequate Technically limited study due to morbid obesity. Indications Pulmonary HTN. Hx: DM, HTN, PE. 2D Dimensions RVDd: 51.11 mm IVSd: 11.29 (7-11mm) LVOT Diam: 24.74 (18-24mm) LVDd: 46.04 mm PWd: 11.19 (7-11mm) Ascending Ao: 38.14 (22-36mm) LVDs: 33.69 (25-40mm) Aortic Root: 37.32 mm Volumes Left Atrial Volume (Systole) Single Plane 4CH: 41.56 mL Single Plane 2CH: 52.55 mL LA ESV Index: 18.00 mL/m2 Aortic Valve AoV Peak Anthony.: 0.73 m/s AO Peak Gr.: 2.12 mmHg LVOT Max P.56 mmHg [facility] [address] [place] [address] 2 D/M-MODE ECHOCARDIOGRAM Name: MILLIE MUNOZ Room #: 360-P [facility] IN ..#: [id number] Admission: 07/02/19 Attend Phys: Rubi Rivero Discharge: Date of : 70 Report #: [id number] LVOT Max V: 0.62 m/s BHAVNA Vmax: 4.12 cm2 Mitral Valve E/A Ratio: 0.7 MV Decel. Time: 334.61 ms MV E Max Anthony.: 0.35 m/s MV A Anthony.: 0.50 m/s MV PHT: 97.04 ms IVRT: 100.35 ms Pulmonary Valve PV Peak Anthony.: 0.60 m/s PV Peak Gr.: 1.45 mmHg Tricuspid Valve TR Peak Anthony.: 2.92 m/s RAP Estimate: 5.00 mmHg TR Peak Gr.: 34.03 mmHg PA Pressure: 39.00 mmHg Left Ventricle The left ventricle is normal size. There is normal LV segmental wall motion. There is normal left ventricular wall thickness. Left ventricular systolic function is normal. LVEF is 50-55%. Mild diastolic dysfunction is present (impaired relaxation pattern). Right Ventricle Right ventricle is moderate to severely dilated. Function is difficult to visualized but appears hypokinetic. Atria The left atrium size is normal. Right atrium is moderately dilated. Aortic Valve The aortic valve is normal in structure. No aortic regurgitation is present. There is no aortic valvular stenosis. Mitral Valve The mitral valve is normal in structure. There is no mitral valve regurgitation noted. No evidence of mitral valve stenosis. Tricuspid Valve The tricuspid valve is normal in structure. Mild to moderate tricuspid regurgitation. Estimated PAP is 40mmHg. [facility] [place] [address] 2 D/M-MODE ECHOCARDIOGRAM Name: MILLIE MUNOZ Room #: 360-P ADM IN M.R.#: [id number] Admission: 07/02/19 Attend Phys: Rubi Rivero Discharge: Date of : 70 Report #: [id number] Pulmonic Valve Pulmonic valve is not well visualized. Trace pulmonic regurgitation. Great Vessels The aortic root is normal in size. The ascending aorta is normal in size. IVC is normal in size and collapses >50% with inspiration. Pericardium There is no pericardial effusion. <Conclusion> The left ventricle is normal size. LVEF is 50-55%. Right ventricle is moderate to severely dilated. Function is difficult to visualized but appears hypokinetic. Right atrium is moderately dilated. The aortic valve is normal in structure. The mitral valve is normal in structure. The tricuspid valve is normal in structure. Mild to moderate tricuspid regurgitation. Estimated PAP is 40mmHg. Pulmonic valve is not well visualized. Trace pulmonic regurgitation. There is no pericardial effusion. <ELECTRONICALLY SIGNED> By: César Aviles MD 07/03/19 1055 54 César Aviles MD /INF
[2019-07-03 11:30] VITALS: BP 99/62
--- NOTE | 2019-07-03 12:34 | HC ---
[facility] [place] [address] CONSULTATION Name: MILLIE MUNOZ Room #: 360-P ADM IN M.R.#: [id number] Admission: 07/02/19 Attend Phys: Rubi Dewey Discharge: Date of : 70 Report #: [id number] THIS REPORT FOR: cc: Flip Hickey James A. DO Barry, Joseph W. MD ~ CC: Flip Lobo DATE OF SERVICE: 07/03/2019 INFECTIOUS DISEASE CONSULTATION ATTENDING PHYSICIAN: Rubi Dewey MD REASON FOR EVALUATION: Ongoing treatment for chronic osteomyelitis, left foot involving the third metatarsal site post excision 06/10, undergoing treatment with wound VACs and parenteral antimicrobial therapy, culture with isolation of Staphylococcus aureus. He has been on cefazolin for the last roughly 3-4 weeks. He was seen by Dr. Flores in the office last week, was felt to be doing okay. He had sudden onset of chest discomfort, difficulty breathing. This progressed over the course a day or 2 prior to admission. He was admitted, was found to have an elevated proBNP to 8900. Chest CT excluded a PE. He is on supplemental oxygen per nasal cannula. He notes his breathing is primarily noticed, clinically deteriorates with any sort of activity at this point. Denies any particular evidence of fevers. Appetite has been fair. No gastrointestinal related complaints. ALLERGIES: None known. CURRENT MEDICATIONS: Include furosemide, duloxetine, diltiazem, enoxaparin, gabapentin, oxycodone, ondansetron p.r.n. PAST MEDICAL HISTORY: Diabetes mellitus diagnosed in 1995. Previous history of distal lower extremity surgeries. History of hypertension, DVT, renal failure. SOCIAL HISTORY: Nonsmoker, no ethanol, no illicit drug use. FAMILY HISTORY: Noncontributory. REVIEW OF SYSTEMS: Otherwise unremarkable. PHYSICAL EXAMINATION: GENERAL: [id number] distress secondary to respiratory effort, appears [facility] [address] [place] [address] CONSULTATION Name: MILLEI MUNOZ Room #: 360-P [facility] IN M.R.#: [id number] Admission: 07/02/19 Attend Phys: Rubi Dewey Discharge: Date of : 70 Report #: [id number] generally well nourished. He is lucid. VITAL SIGNS: Temperature 97.3, pulse 92, respirations 20, blood pressure is 116/79. SKIN: Warm, dry, no rashes. HEENT: He has got to have Ventimask in place. Normocephalic. Extraocular muscles intact. NECK: Supple. LUNGS: Few scattered coarse breath sounds. HEART: Regular. Borderline tachycardic. I do not appreciate murmur. ABDOMEN: Obese, somewhat distended, soft. There are no apparent peritoneal signs. EXTREMITIES: Distal left lower extremity has a wound VAC in place. GENITOURINARY AND RECTAL: Deferred. LABORATORY DATA: Electrolytes: Sodium 137, potassium 4.4, chloride 101, bicarbonate is 22, anion gap of 14, BUN and creatinine 56 and 1.9, glucose of 243. Chest x-ray showed no acute process. ABGs: pH of 7.35, pCO2 of 25.1, pO2 of 79.2 on a nonrebreather. CBC: White count of 7.2, H and H 14.5 and 45.2, platelets of 104. ASSESSMENT: Chronic osteomyelitis involving the left third metatarsal post-resection completed just in excess of 3 weeks of parenteral therapy. We will reinitiate cefazolin. At this point, I do not think there is any evidence the foot is not progressing as hoped. Continue wound VAC as prescribed. We will have to adjust his antimicrobial therapy based on his renal insufficiency at this point. <ELECTRONICALLY SIGNED> By: Paul Haro MD 07/03/19 1234 0904 1033 Paul Haro MD /nt
[2019-07-03 17:03] VITALS: BP 102/60
--- NOTE | 2019-07-03 18:32 | NUR ---
PATIENT HAS RESTED IN ROOM THROUGH THE DAY. HE DID COMPLAIN OF PAIN TO LEFT FOOT AND PRN PAIN MEDS ADMININSTERED. ENCOURAGED TO SIT ON CHAIR OR ATLEAST WALK SOME BUT HE PREFERRED TO STAY IN THE BED. RESPIRATIONS ARE NON LABORED. OXYGEN TITRATED DOWN TO 2L AT THIS TIME. HE OXYGEN SATS STILL STAYS ABOVE 98%. MAY WEAN PATIENT OFF AT BEDTIME. CONT ON IV ABT. NO ADVERSE EFFECTS NOTED.
[2019-07-03 19:51] VITALS: BP 95/66
--- NOTE | 2019-07-04 03:32 | NUR ---
PATIENT ASSESSED AND IS ALERT X 4. UP AD FAHEEM IN ROOM. ENCOURGED TO WALK MORE.LEFT FOOT DRESSING DONE ORDERED A WET TO DRY AND REWRAPPED. 02 AT 2LNC. DENIES ANY SOA. NO SHORTNESS OF BREATH STATED. LEFT UPPER ARM PICC FLUSHES WELL. HAS NOT BEEN ON MARCY MASK ALL NIGHT.IV SITE HEALTHY. ANTIBIOTIC APPLIESD ORFERED. PAIN MEDICATION GIVEN Q 4 HORS NEEDED, SLEPT IN BETWEEN CARES. CONT PLAN OF CARE.
[2019-07-04 05:54] VITALS: BP 94/61
[2019-07-04 07:05] LABS: ALBUMIN 3.1 g/dL (3.4-5.0); CALCIUM 8.8 mg/dL (8.5-10.1); CREATININE 2.5 mg/dL (0.7-1.3); PHOSPHORUS 7.2 mg/dL (2.5-4.9); POTASSIUM 4.5 mmol/L (3.5-5.1)
[2019-07-04 11:43] VITALS: BP 119/93
[2019-07-04 15:32] VITALS: BP 131/77
[2019-07-04 19:31] LABS: URINE BILIRUBIN NEGATIVE (Negative); URINE BLOOD NEGATIVE (Negative); URINE CLARITY CLEAR; URINE COLOR YELLOW; URINE GLUCOSE-RANDOM* 1+ (Negative); URINE KETONES NEGATIVE (Negative); URINE LEUKOCYTES-REFLEX NEGATIVE (Negative); URINE NITRITE-REFLEX NEGATIVE (Negative); URINE PROTEIN (DIPSTICK) 1+ (Negative); URINE SPECIFIC GRAVITY >= 1.030 (1.005-1.035); URINE UROBILINOGEN 0.2 E.U./dl (0.2-1.0)
[2019-07-04 19:39] LABS: SQUAMOUS 0-3 Few /LPF (0-3); URINE RBC None Seen /HPF (0-2); URINE WBC-REFLEX None Seen /HPF (0-5)
[2019-07-04 19:40] LABS: BACTERIA-REFLEX None Seen /HPF (None Seen); CRYSTALS None Seen /LPF (None Seen); HYALINE CASTS 0-3 Few /LPF (None Seen); YEAST-REFLEX Present (None Seen)
--- NOTE | 2019-07-04 19:45 | NUR ---
Patient has had an uneventful day he is weaned to RA. Urine collected for UA. Picc to LOREN flushed easily with good blood return, the SL in the rt ac flushed easily. Patient has requested IV Morphine every 4 hrs today, I explained to him that he really should use the PO pain medication first. He stated "oh no I have to have to have the IV medication I hurt way to bad". He has not done much today besides lay in bed. Deann ALCALA changed the drsg to his left foot.
[2019-07-04 19:53] VITALS: BP 141/55
[2019-07-04 19:57] LABS: SMEAR FOR EOSINOPHILS No Eosinophils Seen
[2019-07-05 04:18] VITALS: BP 119/56
--- NOTE | 2019-07-05 06:18 | NUR ---
PT MAKING POOR PROGRESS TOWARDS GOALS. ENCOURAGED PT TO TAKE PO PAIN MEDICATIONS BEFORE ASKING FOR IV PAIN MEDICATIONS. "WELL THE MORPHINE REALLY TAKES THE STING OUT OF THE PAIN IN MY FOOT RIGHT AWAY. THE PILLS TAKE AN HOUR TO WORK." SEE CHARTING.
--- NOTE | 2019-07-05 07:46 | NUR ---
Nutrition: Pt with BMI >40 (46.7 kg/m2). RD familiar to this pt, just recently saw for nutrition ed < 1 mo ago on 06/11/19. At this time RD educated pt on nutrition importance and protein needs given recent L foot debridement w/ removal of 3rd metatarsal during May 2018 admit; continues w/ wound VAC to L foot per provider notes. Will defer repeat RD visit, as pt seen so recently. Pt's weight is down from 375# per 06/08 to 355# per 07/04 for a 20# wt loss in 1 mo. This lowers BMI from 49.5 to 46.7 kg/m2. Note pt also on Lasix which could attribute to some of losses. On a carb controlled diet, averaging 75-100% of all meals thus far. Follow up further at time of LOS assessment.
[2019-07-05 08:29] VITALS: BP 149/95
--- NOTE | 2019-07-05 14:18 | NUR ---
DISCHARGE PLANNING. PATIENT ADMITTED FROM HOME. PATIENT STATES HE IS RECEIVING HH SERVICES THROUGH [facility]. CALL PLACED TO [facility] TO VERIFY THAT PATIENT IS ON SERVICE WITH THEM. SPOKE WITH DANIELA, VERIFIED PATIENT IS ON SERVICE WITH [facility] AND [facility] WILL RESUME HH SERVICES ONCE DISCHARGE/HH ORDERS RECEIVED. UNIT SW NOTIFIED.
--- NOTE | 2019-07-05 15:01 | NUR ---
INITIAL ASSESSMENT: SW reviewed chart and spoke with nursing and attending physician. Pt was admitted from home due to acute respiratory failure. Pt with osteo of the left foot. Pt was recently discharge home on 06/15 with services through [facility] and Home IV Abx through [facility] and Wound Vac from [facility]. MICHEL met with pt at bedside. Introduced role of SW. Pt is alert/orientated x 4. Pt states he lives at home. Pt has a walker to use if needed. Pt reports he is currently on service with /Home [facility]. Pt's wound vac is in pt's room. Pt's PCP is Dr. Mosquera. Plan is for pt to return home and resume prior home services. intern product marketing manager notified HH. MICHEL notified Ivette at [facility]. MICHEL is following to assist as needed with discharge planning.
[2019-07-05 16:06] VITALS: BP 150/69
--- NOTE | 2019-07-05 19:39 | NUR ---
pt is A&0X3, PT is continuing IV abx, wound care and pain management, pt is off o2 and he is on RA, pt denies SOB and n/v .
[2019-07-05 19:40] VITALS: BP 159/86
[2019-07-06 04:12] VITALS: BP 142/91
[2019-07-06 07:33] VITALS: BP 133/91
--- NOTE | 2019-07-06 07:51 | NUR ---
PT MAKING POOR PROGRESS TOWARDS GOALS. PT REPORTING 10/10 PAIN WITH "STABBING" TYPE OF PAIN IN HIS FOOT. ASKING FOR MORPHINE THAT HE REPORTS HELPS RESOLVE THAT STABBING PAIN. ALSO TAKING THE PERCOCET PER ORDERS.
--- NOTE | 2019-07-06 08:27 | HC ---
[facility] [place] [address] CONSULTATION Name: MILLIE MUNOZ Room #: 360-P ADM IN M.R.#: [id number] Admission: 07/02/19 Attend Phys: Rubi Dewey Discharge: Date of : 70 Report #: [id number] THIS REPORT FOR: cc: Flip Hickey,Alec Garcia MD ~ CC: Flip Lobo DATE OF SERVICE: 07/03/2019 REASON FOR CONSULTATION: The patient admitted for shortness of air with a history of pulmonary embolism with a history of osteomyelitis of the left foot, status post surgical amputation, debridement of left third metatarsal. HISTORY OF PRESENT ILLNESS: The patient is a 49-year-old gentleman, a patient of Dr. Bryant Lobo of [facility], who is well known to the wound care team. Gentleman suffers from diabetes mellitus type 2 and has had amputation of all 5 toes of the left foot. He suffered osteomyelitis of the left third metatarsal, underwent surgical debridement and amputation of the left third metatarsal approximately 06/03 and has been at home on wound VAC therapy. The patient was admitted through the Emergency Room with shortness of air. He has a history of pulmonary embolism. Spiral CT in the OR showed no evidence of pulmonary embolism. PAST MEDICAL HISTORY: Morbid obesity, acute respiratory failure, history of non-ST elevated myocardial infarction, history of osteomyelitis of the left third metatarsal, pulmonary hypertension, morbid obesity. SOCIAL HISTORY: Nonsmoker, has a girlfriend. MEDICATIONS: Include cefazolin, oxycodone, Cymbalta, Trulicity, Jardiance, Cardizem, Neurontin, FlexTouch, Humalog insulin. PAST SURGICAL HISTORY: Amputation of all 5 toes of the left foot, 06/03, debridement; removal of the left third metatarsal; tonsillectomy; right ankle reconstructive surgery. SOCIAL HISTORY: Nonsmoker, nondrinker. REVIEW OF SYSTEMS: Shortness of breath. PHYSICAL EXAMINATION: GENERAL: Shows morbidly obese, middle-age male. [address] [address] CONSULTATION Name: MILLIE MUNOZ Room #: 360-P ADM IN M.R.#: [id number] Admission: 07/02/19 Attend Phys: Rubi Dewey Discharge: Date of : 70 Report #: [id number] HEENT: Mucous membranes moist. The patient is alert and conversant. NECK: Supple. ABDOMEN: Soft and obese. LUNGS: Respirations unlabored. EXTREMITIES: Lower extremity exam shows no wounds of the right foot. All five toes are present. Examination of the left foot shows the patient has had surgical amputation of all 5 toes and those wounds are healed. The patient has a wound VAC in the left foot, which he has been on since Friday, now 6 days, so I removed it. On the dorsal aspect of the left foot, there is a 5 cm long x 1.2 cm wide x 0.8 cm deep wound at the site of ray amputation of the left third metatarsal. Wound has healthy red granulation tissue and only slight odor. There is a deeper wound sulcus extending approximately 0.8 cm in the distal portion of the wound. There is no exposed bone or connective tissue. Sterile saline dressing was placed. This will be replaced with a quarter strength Dakin's packing. IMPRESSION: 1. Morbid obesity. 2. Shortness of air. 3. History of osteomyelitis of the left third metatarsal. 4. Nonhealing surgical wound of the left foot, status post amputation and debridement of the third metatarsal. PLAN: Local wound care with quarter strength Dakin's packing twice daily, anticipate replacement of wound VAC therapy on Friday, 07/05. Wound appears healthy red, well granulating and filling in. The patient's acute illness does not appear to be related to his foot itself. There is no evidence of infection or sepsis. Continue cefazolin. Wound care team will follow. <ELECTRONICALLY SIGNED> By: Alec Loza MD 07/06/19 0827 1145 1215 Alec Loza MD /nt
[2019-07-06] MEDS ORDERED: LASIX 40 MG TAB40 MG PO (08:51)
--- NOTE | 2019-07-06 11:27 | NUR ---
WOUND CONSULT; THIS PATIENT IS BEING DISCHARGED TODAY. I REAPPLIED THE HOME VAC. THE WOUND IS BEEFY RED WITH NO S/S OF INFECTION. THE PATIENT IS WELL VERSED IN VAC THERAPY. NO FURTHER EDUCATION NECESSARY. HOME HEALTH TO FOLLOW DISCUSSED WITH CARI
[2019-07-06] MEDS ORDERED: DAPTOMYCIN500 MG IVPB (11:58)
[2019-07-06 12:41] VITALS: BP 133/91
[2019-07-06] MEDS ORDERED: ASA81BEC PO (13:52)
[2019-07-06 15:04] LABS: CALCIUM 9.4 mg/dL (8.5-10.1); POTASSIUM 4.6 mmol/L (3.5-5.1)
[2019-07-06 15:06] LABS: CREATININE 1.5 mg/dL (0.7-1.3)
[2019-07-06 15:42] VITALS: BP 144/82
--- NOTE | 2019-07-06 16:16 | NUR ---
DISCHARGE NOTE: SW reviewed chart and spoke with nursing and attending physician. Pt is medically stable for discharge home today. Pt will resume HH services through [facility] and home IV infusion services through [facility]. Pt has home wound vac in place. ID changed IV abx to daptomycin 750mg daily. SW sent new order to [facility] and confirmed info was received. Pt is covered at 100%. [facility] liaison met with pt at bedside to provide update. Pt will have dose this evening prior to discharge. Pt to start home IV infusion tomorrow. [facility] to arrange for delivery. SW met with pt at bedside to provide update and discuss discharge. Pt is aware and in agreement with discharge plan. Pt states that ID physician wants to check labs prior to discharge. Pt will have transportation home when discharged. Contact info for HH and Home infusion placed in pt's discharge summary. MICHEL updated pt's nurse. SW is following to assist as needed with discharge planning.
--- NOTE | 2019-07-06 18:35 | NUR ---
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
== END 2019-07-06 17:25 | disposition home health service (06) | DRG 314 ==
LOC: ER 13:55 → 3W 15:54 → EROBS 15:54 → 3W 17:30 → ENTRNSPT 07-06 17:20 → 3W 07-06 17:25
PROVIDERS: Nurse Practitioner; Physician Assistant; Specialist; ADMIT Hospitalist
DX: I27.20 Pulmonary hypertension, unspecified (principal); J96.01 Acute respiratory failure with hypoxia; M86.672 Other chronic osteomyelitis, left ankle and foot; Z68.42 Body mass index [BMI] 45.0-49.9, adult; I50.30 Unspecified diastolic (congestive) heart failure; I13.0 Hypertensive heart and chronic kidney disease with heart failure and stage 1 through stage 4 chronic kidney disease, or unspecified chronic kidney disease; E66.2 Morbid (severe) obesity with alveolar hypoventilation; I27.81 Cor pulmonale (chronic); E11.69 Type 2 diabetes mellitus with other specified complication; E11.22 Type 2 diabetes mellitus with diabetic chronic kidney disease; N18.9 Chronic kidney disease, unspecified; Z86.711 Personal history of pulmonary embolism; Z79.01 Long term (current) use of anticoagulants; Z86.718 Personal history of other venous thrombosis and embolism; Z89.422 Acquired absence of other left toe(s); Z79.84 Long term (current) use of oral hypoglycemic drugs; Z79.891 Long term (current) use of opiate analgesic; Z79.899 Other long term (current) drug therapy
CPT/HCPCS: 10879

== ENCOUNTER 2019-07-09 16:11 | Inpatient (IN) | payer OTHER ==
[~2019-07-09] VITALS: Ht 185.4 cm; Wt 164.2 kg
--- NOTE | ~2019-07-09 | HC ---
[facility] [place] [address] CONSULTATION Name: MILLIE MUNOZ Room #: 206-P ADM IN M.R.#: [id number] Admission: 07/09/19 Attend Phys: Leroy Haines MD Discharge: Date of : 70 Report #: [id number] THIS REPORT FOR: cc: Flip Hickey James A. DO Fried, John S. MD ~ CC: Flip Haines DATE OF SERVICE: 07/11/2019 CONSULTATION: Infectious Diseases. HISTORY OF PRESENT ILLNESS: The patient is a 49-year-old white male who was just discharged from [facility] on 07/06. He had been hospitalized for 4 days for heart failure and respiratory failure. The patient is dealing with a diabetic foot wound with osteomyelitis. On his left foot, he had a previous transmetatarsal amputation. He developed another plantar wound with osteomyelitis of the third metatarsal. Dr. Verma was able to successfully remove the infected third metatarsal on 06/08 and the patient is using a negative pressure wound dressing to close the wound. Culture from that procedure grew methicillin-sensitive Staph aureus. The patient was initially treated with cefazolin. He was having some problems which thought might be related to the medication, so he was changed to daptomycin. The patient is now 33 days after resection of the bone. He was home on the daptomycin. The patient states he was doing in his usual condition at home. He was taking it easy. He was watching the salt in his diet. He is keeping his foot elevated and offloaded. He was taking his medication on a regular basis. He says while in the chair doing really nothing, he developed sudden chest pain and shortness of breath. He felt that he could not get enough air. The patient lives alone and was brought to the hospital. He has a history of pulmonary emboli and this was suspected. However, CT angiogram did not show any new clots. There were diffuse infiltrates, particularly perihilar which is thought to possibly represent atypical pneumonia. In this setting, an Infectious Disease consultation was requested. The patient really has no pneumonia symptoms, except for the shortness of breath. He says he had no fevers. He may have had some chills or sweats with the dyspnea. The chest pain sounds atypical. It could be reproduced with pushing on the sternum or taking deep breaths. The patient was not having any sputum production. He was not having any generalized malaise until he had the sudden onset of symptoms, which led to his coming to the hospital. PAST MEDICAL HISTORY: The patient has a past history of diabetes with hypertension and hyperlipidemia. He has pulmonary hypertension, probably from [facility] [address] [place] [address] CONSULTATION Name: MILLIE MUNOZ Room #: 206-P ADM IN M.R.#: [id number] Admission: 07/09/19 Attend Phys: Leroy Haines MD Discharge: Date of : 70 Report #: [id number] the pulmonary emboli. He was diagnosed with diastolic dysfunction with heart failure with preserved ejection fraction of 50%. The patient has multiple surgeries on his left foot including the most recent third metatarsal resection. He has known pulmonary artery disease. ALLERGIES: He has no known drug allergies. FAMILY HISTORY: Noncontributory. SOCIAL HISTORY: The patient is , lives by himself. 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 Does not have any history of tobacco, alcohol, nor drugs. REVIEW OF SYSTEMS: At this time, the patient continues complaint of dyspnea. He is not complaining of fevers, chills nor sweats. He has generalized malaise, anxiety, and weakness. He denies headache, sinus congestion, sore throat, trouble swallowing. No dental issues. The patient denies any cough. He had the chest pain as described, the shortness of breath as described. He denies any angina, syncope nor palpitations. The patient denies nausea, vomiting, diarrhea, constipation. No urinary complaints. He has some pain in his foot, but this is stable. PHYSICAL EXAMINATION: GENERAL: The patient appears comfortable, alert, oriented, pleasant, not in any distress. VITAL SIGNS: Showed the patient has not had any fevers since coming to the hospital. Blood pressure 144/90, pulse oximetry is 98%, although he complains of some dyspnea. His oxygen saturation when he first came to the ER was 94%. SKIN: Shows no rash, lesion or exanthem. VAC is on the foot and described below. ENT: Negative. HEART: Sounds S1, S2. LUNGS: Clear. ABDOMEN: Belly is morbidly obese, soft, not tender. EXTREMITIES: The patient has the amputation of 5 toes behind the metatarsal heads on the left foot. There is a VAC sponge on the dorsum, approximately 3 cm long and 1 cm wide. The visible skin appears robust and healthy. The foot is slightly puffy and slightly tender. I cannot appreciate any pulses, but the skin has normal color. There are no new wounds. PICC line is present in the left upper arm and appears unremarkable. The right foot is intact without any apparent lesions. LABORATORY DATA: White count is 6.9 with hemoglobin 12.8, hematocrit 40.5, platelets 89,000, which is an improvement. Chemistry shows sodium 134, potassium 5.2, chloride 99, bicarbonate 20, BUN 55, creatinine has gone from 1.6 to 2.3, sugar 356. Troponin is elevated at 0.17. Vancomycin trough level high [facility] [address] [place] [address] CONSULTATION Name: MILLIE MUNOZ Room #: 206-P ADM IN M.Duane.#: [id number] Admission: 07/09/19 Attend Phys: Leroy Haines MD Discharge: Date of : 70 Report #: [id number] at 21. Uric acid is high at 10.9. TSH is normal. Hemoglobin A1c was measured last time at 7.6. BNP this time is quite elevated at 9809. The Radiology Department reports CT angiogram negative for clots, but diffuse infiltrate. The plain portable chest x-ray was interpreted as normal with no infiltrates. The microbiology laboratory reports blood cultures x 2 are negative at 12 hours. Influenza rapid test is negative. MRSA screen of the nares is negative. As noted surgical culture from May had methicillin-sensitive Staph. There are some comments in the chart about MRSA, but review of cultures showed no MRSA has been grown. I believe the patient is suffering from probable pulmonary edema rather than pneumonia. He never had any fevers nor chills. He has no sputum production. He describes the symptoms as having a sudden, almost thunderclap onset. His biggest complaint is dyspnea. He is not really coughing up any significant sputum. All this would be very unusual for pneumonia. The atypical pneumonia is usually very insidious in onset. This sounds almost like flash pulmonary edema. The patient does have the markedly elevated BNP, but does have known right-sided diastolic heart failure. I believe we do not need to treat the patient broadly with vancomycin and Zosyn for infection. The vancomycin is probably a factor in the rising creatinine. Zosyn has a significant sodium load in its own right. I would like to change antibiotic to Rocephin. I discussed the patient's adverse reaction to the cefazolin and he is not sure what exactly the problem was and does not think he had any major allergy. I would like to have Bryant Lobo followup the patient for ongoing management of the back and the wound. It is possible that the wound is doing well enough, the patient may be able to get by without the VAC. We will have Dr. Flores followup regarding the need for continued antibiotic therapy for the wound now that we are day 34 post-bone resection. Possibly, the patient will be changed to oral antibiotic. We want to watch the BNP and the chest x-ray carefully. I anticipate the patient will probably breath better with diuresis. I will ask the nurses to try to obtain a daily weight to assess his fluid status. The chart notes his weight on admission of 356, which is consistent with his weight during his previous hospitalization. By: [id number] Madi Graves MD /nt
[2019-07-09 16:11] VITALS: BP 121/86
[~2019-07-09 16:11] MED LIST changes: +ASA81BEC PO; +DAPTOMYCIN500 MG IVPB; +LASIX 40 MG TAB40 MG PO
[2019-07-09 16:35] LABS: ABSOLUTE NEUTROPHILS 4.5 thou/uL (1.4-8.2); BASOPHILS 1.1 % (0.0-2.0); EOSINOPHILS 2.3 % (0.0-3.0); HEMATOCRIT 48.4 % (42.0-52.0); HEMOGLOBIN 15.7 gm/dL (14.0-18.0); LYMPHOCYTES 27.1 % (24.0-44.0); MCH 27.4 pg (26.0-34.0); MCHC 32.5 g/dL (28.0-37.0); MCV 84.2 fL (80.0-100.0); MONOCYTES 8.8 % (1.0-8.0); POLYS 60.7 % (36.0-66.0); RBC 5.74 mil/uL (4.50-6.00); RDW 16.6 % (10.5-14.5); WBC 7.4 thou/uL (4.0-11.0)
[2019-07-09 16:48] LABS: BE(vivo) -5.8 mmol/L (-2 to +3); HCO3 17.1 mmol/L (22.0-26.0); PCO2 27.6 mmHg (35.0-45.0); PO2 72.6 mmHg (80.0-100.0); pH 7.409 (7.360-7.450)
[2019-07-09 16:52] LABS: APTT 31.3 Seconds (24.5-32.8); D-DIMER 2.51 ug/mLFEU (0.19-0.50); INR 1.1; PROTIME 11.4 Seconds (9.3-11.4)
[2019-07-09 17:08] LABS: PLATELET COUNT 96 thou/uL (150-400)
[2019-07-09 18:19] LABS: CREATININE 1.4 mg/dL (0.7-1.3); POTASSIUM 5.2 mmol/L (3.5-5.1)
[2019-07-09 18:20] LABS: ALBUMIN 3.6 g/dL (3.4-5.0); CALCIUM 9.4 mg/dL (8.5-10.1); TOTAL BILIRUBIN 0.9 mg/dL (<0.1-1.0)
[2019-07-09 18:24] LABS: TOTAL PROTEIN 8.8 g/dL (6.4-8.2); TROPONIN-I 0.14 ng/mL (<0.06)
[2019-07-09 22:36] LABS: URINE BILIRUBIN NEGATIVE (Negative); URINE BLOOD TRACE (Negative); URINE CLARITY CLEAR; URINE COLOR YELLOW; URINE GLUCOSE-RANDOM* 3+ (Negative); URINE KETONES TRACE (Negative); URINE LEUKOCYTES-REFLEX NEGATIVE (Negative); URINE NITRITE-REFLEX NEGATIVE (Negative); URINE PROTEIN (DIPSTICK) 2+ (Negative); URINE UROBILINOGEN 0.2 E.U./dl (0.2-1.0)
[2019-07-09 22:44] LABS: AMP/METHAMP Negative (Negative); BARBITURATES Negative (Negative); BENZODIAZEPINES Negative (Negative); COCAINE Negative (Negative); METHADONE Negative (Negative); OPIATES POSITIVE (Negative); PCP Negative (Negative)
[2019-07-10 01:09] VITALS: BP 137/94
[2019-07-10 05:02] LABS: HEMATOCRIT 45.7 % (42.0-52.0); HEMOGLOBIN 14.9 gm/dL (14.0-18.0); MCH 27.5 pg (26.0-34.0); MCHC 32.6 g/dL (28.0-37.0); MCV 84.4 fL (80.0-100.0); RBC 5.41 mil/uL (4.50-6.00); RDW 16.4 % (10.5-14.5); WBC 6.2 thou/uL (4.0-11.0)
[2019-07-10 05:13] LABS: CALCIUM 9.4 mg/dL (8.5-10.1); CREATININE 1.6 mg/dL (0.7-1.3); POTASSIUM 5.2 mmol/L (3.5-5.1)
[2019-07-10 05:21] LABS: TROPONIN-I 0.15 ng/mL (<0.06)
[2019-07-10 08:00] VITALS: BP 120/66
--- NOTE | 2019-07-10 08:27 | NUR ---
ASSUME CARE 0130. PT/VITALS STABLE. INTERMNITTENT MILD CHEST PAIN INDICATED. UP AD FAHEEM. ASSESSMENT CHARTED. PROGRESSING MODERATELY WITH POC. SDR/ST ON MONITOR. NO DISTRESS NOTED. ADEQUATE URINE OUTPUT. PLAN IS TO CONTINUE TO DIURESE PATIENT AND TREAT PNA. WILL CONTINUE TO MONITOR AND FOLLOW WIHT POC
[2019-07-10 12:30] VITALS: BP 98/56
[2019-07-10 16:00] VITALS: BP 109/63
--- NOTE | 2019-07-10 19:17 | NUR ---
ASSUMED CARE OF PT AT SHIFT CHANGE. ASSESSMENTS CHARTED. MEDS GIVEN PER JUL. A&OX4. C/O CHEST PAIN TREATED WITH MORPHINE Q4H WITH PARTIAL RELIEF. PAIN NEVER BELOW 8/10. VANCO TROUGH SCHEDULED FOR 329. WILL CONTINUE TO MONITOR AND FOLLOW POC.
[2019-07-10 20:20] VITALS: BP 111/67
[2019-07-11 04:09] VITALS: BP 126/79
[2019-07-11 05:04] LABS: ABSOLUTE NEUTROPHILS 3.6 thou/uL (1.4-8.2); EOSINOPHILS 2.5 % (0.0-3.0); HEMATOCRIT 40.5 % (42.0-52.0); LYMPHOCYTES 35.6 % (24.0-44.0); MCHC 31.9 g/dL (28.0-37.0); MCV 84.7 fL (80.0-100.0); MONOCYTES 9.7 % (1.0-8.0); PLATELET COUNT 89 thou/uL (150-400); POLYS 51.2 % (36.0-66.0); RBC 4.78 mil/uL (4.50-6.00); RDW 16.6 % (10.5-14.5); WBC 6.9 thou/uL (4.0-11.0)
[2019-07-11 05:17] LABS: HEMOGLOBIN 12.9 gm/dL (14.0-18.0)
--- NOTE | 2019-07-11 05:57 | NUR ---
ASSUME CARE 1900.PT/VITALS STABLE. INTERMITTENT CJEST AND LEFT FOOT PAIN NOTED. PT NEEDS ENCOURAGEMENT TO MOVE IN BED OR GET OUT OF BED. REFUSES STANDING WEIGHTS. ASSESSMETN CHARTED. PROGRESSING MODERATELY WITH POC. PLAN IS TO CONITNUE TO DIURESE PT, MONITOR RESPIRTORY FUNCTION, AND MANAGE PNA. WILL CONTINUE TO FOLLOW WITH POC
[2019-07-11 07:32] LABS: GLYCOHEMOGLOBIN (HGB A1C) 7.6 % (4.8-5.6)
[2019-07-11 07:55] VITALS: BP 122/69
--- NOTE | 2019-07-11 08:38 | HC ---
[facility] [place] [address] [place] [address] CONSULTATION Name: MILLIE MUNOZ Room #: 206-P ADM IN M.R.#: [id number] Admission: 07/09/19 Attend Phys: Leroy Haines MD Discharge: Date of : 70 Report #: [id number] THIS REPORT FOR: cc: Flip Hickey,Lam Govea MD ~ CC: Flip Haines DATE OF SERVICE: 07/10/2019 CARDIOLOGY CONSULTATION INDICATION: Chest pain. HISTORY OF PRESENT ILLNESS: This is a 49-year-old male with a history of diabetes mellitus, chronic wounds of his left foot status post amputation, osteomyelitis/MRSA, DVT with bilateral PEs, hypertension, presenting with chest pain and shortness of breath. He was recently admitted for shortness of breath, found to have pulmonary hypertension, thought to be related to his previous pulmonary emboli. Echo at that time revealed normal LV systolic function with a dilated right ventricle, diagnosed with diastolic heart failure. He reports having pain in his right lower sternal area, reproducible with coughing and deep inspiration. His respiratory status has been borderline. He denies any fever or chills. He is nonambulatory secondary to his recent metatarsal amputation. There is no history of orthopnea. PAST MEDICAL HISTORY: Diabetes mellitus, hypertension, foot ulcer with osteomyelitis and metatarsal amputations. DVT with PE, recently diagnosed pulmonary hypertension and diastolic heart failure. ALLERGIES: None. MEDICATIONS: At home include Lasix once a day, antibiotics daptomycin, aspirin once a day, diltiazem 180, Neurontin, insulin. SOCIAL HISTORY: Denies tobacco use. FAMILY HISTORY: Negative for premature CAD. REVIEW OF SYSTEMS: A full 10-point review of systems performed. Only the pertinent positives and negatives are described in the HPI. PHYSICAL EXAMINATION: VITAL SIGNS: Blood pressure is 120/60, heart rate is 90 beats per minute. GENERAL APPEARANCE: An overweight male in no acute respiratory distress. [address] [address] CONSULTATION Name: MILLIE MUNOZ Room #: 206-P ADM IN M.R.#: [id number] Admission: 07/09/19 Attend Phys: Leroy Haines MD Discharge: Date of : 70 Report #: [id number] HEENT: Normocephalic, atraumatic, oral mucosa moist. NECK: Supple. LUNGS: Clear to auscultation. CARDIAC: Regular rate and rhythm, S1, S2 positive. ABDOMEN: Soft, nontender. EXTREMITIES: Left metatarsal amputations, no cyanosis, trace edema. ECG reveals sinus rhythm, poor R-wave progression, T-wave inversions in the inferior leads. LABORATORY VALUES: White count 6.2, hemoglobin 14.9, creatinine is 1.6. Troponin peak is 0.17. ASSESSMENT AND PLAN: 1. Chest pain syndrome, the pain is reproducible with palpation as well as deep inspiration. Doubt that this is ischemia related. He does have minimally elevated troponin levels, which may be related to oxygen supply/demand mismatch. He has significant risk factors and we will proceed with noninvasive stress testing. 2. Pulmonary hypertension, continue with pulmonary followup. 3. Diastolic heart failure, continue with Lasix therapy. 4. Diabetes mellitus, check fingersticks and treat with his regimen. 5. Hypertension, continue on medications. 6. History of osteomyelitis/methicillin-resistant Staphylococcus aureus, wound VAC in place. Continue with antibiotics. <ELECTRONICALLY SIGNED> By: Lam Scruggs MD 07/11/19 0838 [id number] [id number] Lam Scruggs MD /nt
[2019-07-11 12:10] VITALS: BP 121/46
[2019-07-11 13:45] LABS: URIC ACID* 10.9 mg/dL (2.6-7.2)
[2019-07-11 16:11] LABS: PROCALCITONIN 0.16 ng/mL (<0.50)
[2019-07-11 16:25] VITALS: BP 140/66
--- NOTE | 2019-07-11 18:02 | NUR ---
ASSUMED CARE OF PT AT SHIFT CHANGE. ASSESSMENTS CHARTED. MEDS GIVEN PER JUL. PT A&OX4. C/O CHEST PAIN TREATED WITH IV MEDS WITH PARTIAL RELIEF. LASIX AND VANC ON HOLD D/T ELEVATED CREATININE. FLUIDS ADDED. RAYMOND IN PLACE IS WOUND VAC ON LEFT FOOT. WILL CONTINUE TO MONITOR AND FOLLOW POC.
[2019-07-11 20:25] VITALS: BP 144/90
[2019-07-12 05:29] VITALS: BP 144/85
--- NOTE | 2019-07-12 06:51 | NUR ---
ASSUMED PT CARE AROUND 1900. PT WAS RESTING IN BED. PT HAS C/O PAIN BETWEEN 8-10 CONSTANTLY. PAIN MEDICATION GIVEN PER EMAR. PT RESTED THRU NIGHT WITH MINIMAL INTERRUPTIONS. WOUND VAC STILL ATTACHED TO LEFT FOOT. PT HAD NO C/O OF SOA OR N/V/D. WILL CONTINUE TO MONITOR PER PLAN OF CARE.
[2019-07-12 06:58] LABS: CALCIUM 8.4 mg/dL (8.5-10.1); CREATININE 1.5 mg/dL (0.7-1.3); POTASSIUM 4.2 mmol/L (3.5-5.1)
[2019-07-12 08:00] VITALS: BP 138/70
--- NOTE | 2019-07-12 10:41 | NUR ---
Assess due to class III obesity BMI of 44.6. Has has several admissions and most recent discharge last week for CHF. Also has diabetic foot ulcer with hx metatarsal amputation. Upon visit, pt voiced good appetite, asking for alternative menu. Informed pt of carb control, 1750ml fluid restriction diet order. Minimal interest in conversation as pt looking at phone whole time. A1C 7.5, on ss insulin. Pulmonary, ID, and wound care consults are ordered. Usual wt is 350s per pt. Current wt 338 lb, loss of 12 lb. Low nutrition risk at this time.
[2019-07-12 11:55] VITALS: BP 101/89
--- NOTE | 2019-07-12 15:49 | NUR ---
AAOX4. CALM, COOPERATIVE. MEDICATED FOR NON-CARDIAC CHEST PAIN AND LEFT FOOT PAIN. DOWN FOR STRESS TEST NOW. BLOOD FOR LAB DRAWN VIA PICC LINE, BRISK BLOOD RETURN, FLUSHES READILY. SR PER TELE. WILL CONTINUE TO FOLLOW CLOSELY.
[2019-07-12 16:25] VITALS: BP 142/81
[2019-07-12 20:22] VITALS: BP 162/80
--- NOTE | 2019-07-13 05:21 | NUR ---
ASSUMED PT CARE AROUND 191. PT WAS RESTING IN BED WITH NO C/O SOA OR N/V/D. PT DID C/O PAIN IN CHEST AREA AND MEDICATION GIVEN PER EMAR. PT HAS BEEN NPO SINCE MIDNIGHT IN PREPARATION FOR PROCEDURE. WILL CONTINUE TO MONITOR PT PER PLAN OF CARE.
[2019-07-13 05:23] VITALS: BP 152/81
[2019-07-13 08:10] VITALS: BP 144/76
[2019-07-13 10:09] LABS: ANA INTERPRETATION Negative (Negative)
[2019-07-13 11:50] VITALS: BP 130/78
--- NOTE | 2019-07-13 12:42 | NUR ---
WOUND CONSULT; VAC PLACEMENT. WOUND IS 99% BEEFY RED TISSUE. 1% NON VIABLE. THE FOOT AND WOUND SHOWS MUCH IMPROVEMENT SINCE LAST HOSPITAL ADMISSION. NO S/S OF INFECTION. RECOMMENDATION VAC APPLICATION PER DR ABDUL RN PRESENT
--- NOTE | 2019-07-13 14:08 | NUR ---
Met with patient who admits with Hypoxia, PNA. Patient resides in ranch style home. He has a walker at home if needed. he reports he is up ad pina in room. He was rec HH from [facility] and home infusion therapy from [facility] on [address]. Patient with wound vac and wound care following. Patient with prior toe amputation and cellulitis. Patient reports his employment aware of situation. He has enough paid time off he is not using FMLA at this time. Plan home with home infusion/HH at id
[2019-07-13 15:55] VITALS: BP 151/87
[2019-07-13 20:14] VITALS: BP 145/88
[2019-07-14] VITALS (7 sets, daily range): BP systolic 136–168; BP diastolic 77–100
--- NOTE | 2019-07-14 04:56 | NUR ---
ASSUMED PT CARE AROUND 1909. PT WAS RESTING IN BED WITH C/O PAIN IN CHEST A 02/18. PAIN MEDICATION GIVEN PER EMAR WITH PARTIAL RELIEF PROVIDED. PT HAD NO C/O N/V/D OR SOA. PT RESTED THRU NIGHT WITH MINIMAL INTERRUPTIONS. WILL MONITOR THRU SHIFT ACCORDING TO PLAN OF CARES.
--- NOTE | 2019-07-14 19:54 | NUR ---
ASSUMMED PT CARE AT APPROXIMATELY 0700. PT A&O X4. ASSESSMENT CHARTED. FALL PRECAUTIONS IN PLACE. PT DENIES HAVING CHEST PAIN. PT DENIES HAVING SOB. PT STATED HE HAD ACUTE PAIN. PT RECIEVED ANALGESICS. PT STATED ANALGESICS WERE NOT HELPING PAIN. INFORMED DR. GOMEZ. DR. GOMEZ ORDERED NEW ANALGESICS. PT RECIEVED ANALGESICS. PT STATED ANALGESICS HELEPED RELIEVE PAIN. VITAL SIGNS STABLE. BLOOD SUGARS STABLE. PT COMFORTABLE IN BED. PT DENIES HAVING FURTHER CONCERNS.
[2019-07-14 20:06] LABS: HISTOPLASMA MYCELIAL-ID Negative (Negative)
[2019-07-15] VITALS (7 sets, daily range): BP systolic 143–171; BP diastolic 73–97
--- NOTE | 2019-07-15 05:35 | NUR ---
PATIENTS CARES WERE ASSUMED AT SHIFT CHANGE. PATIENT WAS ASSESSED AND MEDS WERE PASSED. PATIENTS ONLY COMPLAINT TO THIS NURSE WAS HIS HOME MEDATION WAS NOT ORDERED AND HIS PAIN NEVER HAS BEED THIS HIGI. PATIENT VOIDS IN THE BEDSIDE COMMODE.HOURLY ROUNDS WERE DONE. THE BED IS IN A LOW AND LOCK POSITION
[2019-07-15 08:31] LABS: T-SPOT.TB Negative
[2019-07-15] MEDS ORDERED: VOLTAREN100 GM TOP (11:08)
[2019-07-15] MEDS ORDERED: ELIQUIS5 MG PO (11:08)
[2019-07-15] MEDS ORDERED: IPRAT-ALBUT 0.5-3 ML INH (11:08)
[2019-07-15] MEDS ORDERED: PEPCID20 MG PO (11:08)
[2019-07-15] MEDS ORDERED: LOPRESSOR25 PO (11:08)
[2019-07-15 14:52] LABS: HEMATOCRIT 39.4 % (42.0-52.0); HEMOGLOBIN 12.6 gm/dL (14.0-18.0); MCH 27.4 pg (26.0-34.0); MCV 85.6 fL (80.0-100.0); RBC 4.6 mil/uL (4.50-6.00); RDW 16.8 % (10.5-14.5); WBC 8.4 thou/uL (4.0-11.0)
[2019-07-15 15:01] LABS: CREATININE 1.2 mg/dL (0.7-1.3); POTASSIUM 4.5 mmol/L (3.5-5.1)
[2019-07-15] MEDS ORDERED: CEFAZ1 ADV IV (15:18)
--- NOTE | 2019-07-15 15:36 | NUR ---
Dc plan discussed with the care team and confirmed with the pt at bedside. Pt to resume home iv infusion with new atb: Cefezolyn 1gm q8, labs and picc care per [facility] and hh Rn and therapy per [facility] with MWF wound vac dressing changes. Dc finished goods planner to fax orders to [facility] and [facility]. Their liasons have been alerted to resumption of care orders. Pt's friend will be here around 7pm to take him home. Pt to have his 5:30pm dose prior to dc. Pt is agreeable to the dc and able to manage his own iv atb this evening. He has been on this drug and dosing schedule before. He had a picc line dressing change yesterday. [facility] to deliever his iv meds tonight.
--- NOTE | 2019-07-15 16:06 | NUR ---
PT DISCHARGING TODAY TO HOME WITH [facility] AND [facility] FOR IV ABX. FAXED DC ORDERS/SUMMARY AND ID NOTE FROM TODAY TO [facility] SPOKE WITH TREY IN INTAKE SHE RECEIVED ORDER AND WILL NOTIFY PT TIME OF VISITS. FAXED DC ORDERS/SUMMARY AND ID NOTES FROM TODAY TO [facility] SPOKE WITH SEDA IN INTAKS SHE RECEIVED THE ORDER AND WILL HAVE MED/SUPPLIES DELIVERED TO PT'S HOME THIS EVENING.
--- NOTE | 2019-07-15 17:11 | NUR ---
PT CARE ASSUMED APPROX 0700. ASSESSMENT CHARTED. DENIES SOA. REPORTS ADEQUATE PAIN MANAGEMENT ONCE HOME REGIMINE STARTED THIS AM. UP WITH STEADY GAIT. WOUND VAC C/D/I. PT TO DISCHARGE THIS EVENING. PICC LINE TO BE KEPT IN PLACE. LINE IS FUNCTIONING AT THIS TIME. URINARY CATH DISCONTINUED. PT HAD SOME CATH TRAUMA AND THERE WAS NOTED HEMATURIA UPON REMOVAL. WILL MONITOR FOR POST VOID. PT TRANSPORTATION HOME WILL BE LATE THIS EVENING. WILL PASS ON TO NOC NURSE. DISCHARGE WILL BE COMPLETE.
--- NOTE | 2019-07-15 18:25 | NUR ---
DISCHARGE EDUCATION COMPLETED. PT REPORTS UNDERSTANDING.
--- NOTE | 2019-07-15 20:11 | NUR ---
patients care was brief. patient was discharged to home with home health. patient was off the property at approx 1940. discharge instruction was given to the patient by the day nurse and papers signed.
--- NOTE | 2019-07-16 15:33 | EKG ---
[facility] [place] [address] ELECTROCARDIOGRAM REPORT Name: MILLIE MUNOZ Room #: 206-P [facility] IN M.R.#: [id number] Admission: 07/09/19 Attend Phys: Renetta Romero MD Discharge: 07/15/19 Date of : 70 Report #: [id number] THIS REPORT FOR: cc: Flip Hickey James A. DO Park, Jin S. 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 : 1970 Requested By: Pramod Lazo Order Number: [id number] MD: Lam Scruggs Measurements Intervals [place] Rate: 121 P: 61 OR: 146 QRS: 53 QRSD: 100 T: -39 QT: 350 QTc: 497 Interpretive Statements Sinus tachycardia Low voltage, precordial leads Borderline T abnormalities, diffuse leads Borderline prolonged QT interval Compared to ECG 07/02/2019 14:24:15 Low QRS voltage now present T-wave abnormality now present Poor R-wave progression no longer present ST (T wave) deviation no longer present Electronically Signed On 07-09-2019 16:37:53 MACHINE COMPOSITOR by Lam Scruggs [email or web address] <ELECTRONICALLY SIGNED> By: Lam Scruggs MD 07/09/19 1637 21 162 Lam Scrgugs MD /EPI
--- NOTE | 2019-07-16 15:34 | EKG ---
[facility] [place] [address] ELECTROCARDIOGRAM REPORT Name: MILLIE MUNOZ Room #: 206-P DIS IN M.R.#: [id number] Admission: 07/09/19 Attend Phys: Renetta Romero MD Discharge: 07/15/19 Date of : 70 Report #: [id number] THIS REPORT FOR: cc: Flip Hickey James A. DO Park, Jin S. MD ~ THIS REPORT FOR: //name// [facility] Test Date: 2019-07-10 Test Time: 07:32:36 Pat Name: MILLIE MUNOZ Department: Room: 206 Gender: M [place] Layer: Duane COFFMAN : 1970 Requested By: Ronna Barlow Order Number: [id number] MD: Lam Scruggs Measurements Intervals [place] Rate: 98 P: 58 AR: 169 QRS: 22 QRSD: 92 T: 0 QT: 391 QTc: 500 Interpretive Statements Sinus rhythm Abnormal T, consider ischemia, anterior leads Compared to ECG 07/09/2019 16:22:19 Possible ischemia now present Sinus tachycardia no longer present T-wave abnormality still present Electronically Signed On 07-10-2019 12:53:38 RESEARCH NURSE by Lam Scruggs [email or web address] <ELECTRONICALLY SIGNED> By: Lam Scruggs MD 07/10/19 1253 Lam Scruggs MD /EPI
--- NOTE | 2019-07-16 15:34 | EKG ---
[facility] [place] [address] ELECTROCARDIOGRAM REPORT Name: MILLIE MUNOZ Room #: 206-P DIS IN M.R.#: [id number] Admission: 07/09/19 Attend Phys: Renetta Romero MD Discharge: 07/15/19 Date of : 70 Report #: [id number] THIS REPORT FOR: cc: Flip Hickey James A. DO Park, Jin S. 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
--- NOTE | 2019-07-19 07:44 | HC ---
[facility] [place] [address] CONSULTATION Name: MILLIE MUNOZ Room #: 206-P [facility] IN M.R.#: [id number] Admission: 07/09/19 Attend Phys: Renetta Romero MD Discharge: 07/15/19 Date of : 70 Report #: [id number] THIS REPORT FOR: cc: Flip Hickey,Sergio Patel MD ~ CC: Flip Romero DATE OF SERVICE: 07/12/2019 HISTORY OF PRESENT ILLNESS: This is a 49-year-old male patient with whom I am familiar from previous hospitalization. He underwent a third toe amputation, has an open surgical wound. We have been managing with a wound VAC. He had an osteomyelitis of the third metatarsal and has undergone bony debridement. He is admitted to the hospital at this time due to respiratory difficulties and has been having no problems with his foot. I have been consulted to continue doing wound management here. PAST MEDICAL HISTORY: Positive for history of hypertension, DVT, diabetes, peripheral neuropathy, osteomyelitis of the left foot with third toe and metatarsal resection. SOCIAL HISTORY: Negative for alcohol or tobacco use. FAMILY HISTORY: Noncontributory. MEDICATIONS: Include Cymbalta, Trulicity, Jardiance, Cardizem, Neurontin, Tresiba, Humalog, furosemide, daptomycin, enteric coated aspirin. ALLERGIES: No known drug allergies. REVIEW OF SYSTEMS: CONSTITUTIONAL: The patient denies fever, chills or weight loss. NEUROLOGICAL: The patient denies focal weakness, numbness or tingling. EYES: The patient denies visual changes, redness, or drainage. ENT: The patient denies earache, nasal drainage or sore throat. CARDIOVASCULAR: The patient denies chest pain, palpitations or diaphoresis. PULMONARY: The patient complains of some shortness of breath and difficulty with deep inspiration. GASTROINTESTINAL: The patient denies nausea, vomiting, diarrhea or abdominal pain. GENITOURINARY: The patient denies frequency or urgency of urination. Denies dysuria. ORTHOPEDIC: The patient notes the wound on his left foot. Denies any pain associated with this. [facility] [address] [place] [address] CONSULTATION Name: MILLIE MUNOZ Room #: 206-P [facility] IN M.R.#: [id number] Admission: 07/09/19 Attend Phys: Renetta Romero MD Discharge: 07/15/19 Date of : 70 Report #: [id number] Other systems in a 14-point review of systems are negative. PHYSICAL EXAMINATION: VITAL SIGNS: At this time include temperature 36.7, pulse 71, respiratory rate 18, blood pressure 101/89. GENERAL: This is a well-developed male patient who appears to be in minimal distress. HEENT: Head normocephalic. Nose and throat are clear. NECK: Supple. LUNGS: Diminished. HEART: Regular. ABDOMEN: Soft. Bowel sounds present. EXTREMITIES: Lower extremities demonstrate palpable distal pulses. Surgical wound on the dorsal aspect of the left foot is healthy, clean and granulating with no evidence of overt infection. NEUROLOGIC: The patient is alert, oriented and appropriate. LABORATORY STUDIES: Include sodium 136, potassium 4.2, CO2 26, BUN 65, creatinine 1.5, glucose 188, albumin is 3.6. White blood cell count of 6.9 with a hemoglobin of 12.9, albumin is 3.6. CLINICAL IMPRESSION: 1. Surgical wound to the dorsal foot, status post excision of osteomyelitic third metatarsal. 2. Diabetes type 2. 3. Hypertension. 4. History of deep venous thrombosis and pulmonary embolus. RECOMMENDATIONS: At this point in time, we will continue with [employer] wound VAC at 125 mmHg using black foam to be changed on a 3-day a week basis and intravenous antibiotics per ID. Continuation of other current medications, ongoing nutritional support. I appreciate being asked to see him in consultation. <ELECTRONICALLY SIGNED> By: Sergio Peña MD 07/19/19 0744 [id number] Sergio Peña MD /nt
== END 2019-07-15 19:40 | disposition home health service (06) | DRG 189 ==
LOC: ER 16:11 → 2N 22:07 → EROBS 22:07 → 2N 07-10 00:38
PROVIDERS: Emergency Medicine; Hospitalist; Internal Medicine; Internal Medicine Pulmonary Disease; Nurse Practitioner Family; ADMIT Internal Medicine
PROC: 0B9K8ZX Drainage of Right Lung, Via Natural or Artificial Opening Endoscopic, Diagnostic (ICD-10-PCS; principal; 2019-07-13)
DX: J96.01 Acute respiratory failure with hypoxia (principal); I50.33 Acute on chronic diastolic (congestive) heart failure; J18.9 Pneumonia, unspecified organism; I13.0 Hypertensive heart and chronic kidney disease with heart failure and stage 1 through stage 4 chronic kidney disease, or unspecified chronic kidney disease; L03.116 Cellulitis of left lower limb; N17.9 Acute kidney failure, unspecified; Z68.42 Body mass index [BMI] 45.0-49.9, adult; M86.8X8 Other osteomyelitis, other site; T17.590A Other foreign object in bronchus causing asphyxiation, initial encounter; E11.621 Type 2 diabetes mellitus with foot ulcer; I27.20 Pulmonary hypertension, unspecified; D69.6 Thrombocytopenia, unspecified; S90.929A Unspecified superficial injury of unspecified foot, initial encounter; X58.XXXA Exposure to other specified factors, initial encounter; Y93.89 Activity, other specified; Y92.89 Other specified places as the place of occurrence of the external cause; Y99.8 Other external cause status; G47.33 Obstructive sleep apnea (adult) (pediatric); E66.01 Morbid (severe) obesity due to excess calories; N18.9 Chronic kidney disease, unspecified; E11.69 Type 2 diabetes mellitus with other specified complication; T50.8X5A Adverse effect of diagnostic agents, initial encounter; E11.22 Type 2 diabetes mellitus with diabetic chronic kidney disease; B95.61 Methicillin susceptible Staphylococcus aureus infection as the cause of diseases classified elsewhere; Z86.14 Personal history of Methicillin resistant Staphylococcus aureus infection; Z86.711 Personal history of pulmonary embolism; Z86.718 Personal history of other venous thrombosis and embolism; Z89.612 Acquired absence of left leg above knee; I07.1 Rheumatic tricuspid insufficiency
CPT/HCPCS: 10081; 50010; 62110; 62900; 70005

== ENCOUNTER 2019-07-20 16:45 | Inpatient (IN) | payer OTHER ==
[~2019-07-20] VITALS: Ht 185.4 cm; Wt 157.9 kg
--- NOTE | ~2019-07-20 | HC ---
[facility] [place] [place] [address] CONSULTATION Name: MILLIE MUNOZ Room #: 359-P ADM IN M.R.#: [id number] Admission: 07/20/19 Attend Phys: Luis Urrutia MD Discharge: Date of : 70 Report #: [id number] THIS REPORT FOR: cc: Flip Hickey James A. DO Smithson, David G. MD ~ CC: Luis Solo DATE OF SERVICE: 07/26/2019 HISTORY OF PRESENT ILLNESS: The patient is a 49-year-old white male admitted with increased shortness of breath, CHF new onset, acute renal insufficiency superimposed on chronic kidney disease. History of recent pneumonia. He has been treated medically. Notes he is feeling much better today. He has been treated with Lasix limiting fluids. He has a prior history of osteomyelitis of the left foot on cefazolin. Infectious Disease has been involved in managing his antibiotics. We are seeing him in rehabilitation medicine consultation. PAST MEDICAL HISTORY: Includes pneumonia, diabetes, peripheral vascular disease, osteomyelitis, left foot, MRSA, and hypertension. ALLERGIES: No known drug allergies. MEDICATIONS: Please see the full medication listing. HABITS: No history of tobacco or alcohol abuse. SOCIAL HISTORY: Lives in a house alone, two steps, not utilizing gait aids. REVIEW OF SYSTEMS: No current complaints of chest pain, shortness of breath or abdominal discomfort. PHYSICAL EXAMINATION: GENERAL: A 49-year-old white male in no obvious distress. VITAL SIGNS: Last recorded temperature 96.5, pulse 74, respirations 16, blood pressure 151/92. He is alert, pleasant. HEENT: Appeared to be benign. NEUROLOGIC: Cranial nerves are grossly intact. Facies are symmetric. EXTREMITIES: Functional range of motion of both upper extremities he has got excellent upper body strength 5/5. Lower extremities functional range of motion his left foot is dressed, but he has excellent strength of the right lower extremity at least to 4+/5. Left lower extremity was probably 4+/5. He ambulated without a gait aid, standby assistance out into the hallway. [facility] [address] [place] [address] CONSULTATION Name: MILLIE MUNOZ Room #: 359-P [facility] IN ..#: [id number] Admission: 07/20/19 Attend Phys: Luis Urrutia MD Discharge: Date of : 70 Report #: [id number] ASSESSMENT: A 49-year-old white male with the following problem list: 1. Congestive heart failure. 2. Generalized weakness and debilitation, doing much better. 3. Acute renal insufficiency superimposed on chronic kidney disease. 4. History of recent pneumonia. 5. Osteomyelitis of the left foot, on IV antibiotics. 6. History of peripheral vascular disease. 7. Diabetes mellitus type 2. 8. History of deep venous thrombosis and pulmonary embolism. 9. History of methicillin-resistant Staphylococcus aureus. PLAN: The patient had a lot more problems with functional mobility on Friday07/23/2019. He was sleepy at that time and did not do as well. Today, he did much better in physical therapy as discussed. He appears to be too high level at this point to warrant an acute in-hospital inpatient rehabilitation stay. Would anticipate that he could hopefully return back to the home setting once he is medically cleared. Thank you for asking us to assist in this patient's care. By: [id number] Jimenez Hanson MD /PMT
[~2019-07-20 16:45] MED LIST changes: -LIDOCAINE PAIN1 EACH TRANSDERM; -MOBIC7.5 MG PO
[2019-07-20 16:46] VITALS: BP 133/79
[2019-07-20] MEDS ORDERED: MOBIC7.5 MG PO (16:52)
[2019-07-20] MEDS ORDERED: LIDOCAINE PAIN1 EACH TRANSDERM (16:52)
[2019-07-20 17:15] LABS: BE(vivo) -6.6 mmol/L (-2 to +3); HCO3 15.1 mmol/L (22.0-26.0); PO2 65.6 mmHg (80.0-100.0); pH 7.455 (7.360-7.450); sO2 94.3 % (92.0-98.0)
--- NOTE | 2019-07-20 17:24 | EKG ---
[facility] [place] [place] [address] ELECTROCARDIOGRAM REPORT Name: MILLIE MUNOZ Room #: PRE M.R.#: [id number] Admission: Attend Phys: Discharge: Date of : 70 Report #: [id number] THIS REPORT FOR: cc: Flip Hickey James A. DO Couchonnal, Luis F. MD ~ THIS REPORT FOR: //name// [facility] ED Test Date: 2019-07-20 Test Time: 16:57:50 Pat Name: MILLIE MUNOZ Department: Room: Gender: Patient Financial Specialist: [facility] : 1970 Requested By: Ladarius Helms Order Number: [id number] MD: Naseem Mandujano Measurements Intervals [place] Rate: 104 P: 61 CO: 166 QRS: 17 QRSD: 100 T: -57 QT: 395 QTc: 520 Interpretive Statements Sinus tachycardia Low voltage, precordial leads Abnrm T, consider ischemia, anterolateral lds Baseline wander in lead(s) V1 Compared to ECG 07/10/2019 07:32:36 Electronically Signed On 07-20-2019 17:23:04 CDT by Naseem Mandujano [email or web address] <ELECTRONICALLY SIGNED> By: Naseem Mandujano MD 07/20/19 1723 165 165 Naseem Mandujano MD /EPI
[2019-07-20 17:52] LABS: WBC 6.5 thou/uL (4.0-11.0)
[2019-07-20 17:54] LABS: HEMATOCRIT 40.7 % (42.0-52.0); HEMOGLOBIN 13.2 gm/dL (14.0-18.0); MCH 27.7 pg (26.0-34.0); MCHC 32.5 g/dL (28.0-37.0); MCV 85.2 fL (80.0-100.0); RBC 4.77 mil/uL (4.50-6.00); RDW 16.8 % (10.5-14.5)
[2019-07-20 18:07] LABS: ANION GAP 16 mmol/L (7-16); BUN 42 mg/dL (7-18); CALCIUM 9.7 mg/dL (8.5-10.1); CHLORIDE 100 mmol/L (98-107); CO2 20 mmol/L (21-32); CREATININE 1.4 mg/dL (0.7-1.3); GLUCOSE 220 mg/dL (74-106); SODIUM 136 mmol/L (136-145)
--- NOTE | 2019-07-20 18:09 | NUR ---
CONTACTED THE PT'S GIRLFRIEND, AT THE REQUEST OF THE PATIENT. SHE HAS REQUESTED THAT SHE BE CONTACTED WITH ANY CHANGES.
[2019-07-20 18:11] LABS: TROPONIN-I 0.25 ng/mL (<0.06)
[2019-07-20 18:13] LABS: ALBUMIN 3.4 g/dL (3.4-5.0); SGOT 13 U/L (15-37); SGPT < 6 U/L (30-65); TOTAL BILIRUBIN 0.8 mg/dL (<0.1-1.0); TOTAL PROTEIN 7.8 g/dL (6.4-8.2)
[2019-07-20 18:19] LABS: ABSOLUTE NEUTROPHILS 3.8 thou/uL (1.4-8.2); PLATELET COUNT 49 thou/uL (150-400); PLATELET ESTIMATE DECREASED
[2019-07-20 19:14] VITALS: BP 93/64
--- NOTE | 2019-07-20 19:17 | NUR ---
HIGHWAY ENGINEERING TECHNICIAN CALLED TO GIVE REPORT TO INPATIENT NURSE, WAS TOLD NURSE IS THE MIDDLE OF GETTING REPORT FOR SHIFT CHANGE.
[2019-07-20 19:30] VITALS: BP 113/60
[2019-07-21] VITALS: BP 91/51
[2019-07-21 04:22] VITALS: BP 85/54
--- NOTE | 2019-07-21 05:58 | NUR ---
PT ARRIVED FROM ER VIA BED, PLACED IN ROOM 359. ADMISSION ASSESSMENTS COMPLETED. PT DENIES ANY SOA WHILE AT REST BUT REPORTS THAT HE WAS HAVING WORSENING SOA WHEN AMBULATING. O2 AT 3L PER NC CURRENTLY. MORPHINE FOR C/O RIGHT SIDED CHEST DISCOMFORT AND PAIN IN LEFT FOOT. PICTURE PLACED ON CHART OF LEFT FOOT WOUND. ASSESSMENTS ONGOING.
[2019-07-21 06:20] LABS: HEMATOCRIT 37.9 % (42.0-52.0); MCH 27.4 pg (26.0-34.0); MCHC 31.8 g/dL (28.0-37.0); MCV 86.1 fL (80.0-100.0); RBC 4.4 mil/uL (4.50-6.00); RDW 17.1 % (10.5-14.5); WBC 7.1 thou/uL (4.0-11.0)
[2019-07-21 06:26] LABS: CALCIUM 8.6 mg/dL (8.5-10.1); CREATININE 1.6 mg/dL (0.7-1.3); POTASSIUM 4.1 mmol/L (3.5-5.1)
[2019-07-21 08:10] VITALS: BP 98/61
--- NOTE | 2019-07-21 10:29 | 2DMMODE ---
[address] [address] 2 D/M-MODE ECHOCARDIOGRAM Name: MILLIE MUNOZ Room #: 359-P ADM IN M.R.#: [id number] Admission: 07/20/19 Attend Phys: Luis Urrutia MD Discharge: Date of : 70 Report #: [id number] THIS REPORT FOR: cc: Flip Hickey James A. DO Park, Jin S. MD ~ APPROVED REPORT Study performed: 07/21/2019 09:35:46 EXAM: Comprehensive 2D, Doppler, and color-flow Echocardiogram Patient Location: Echo lab Room #: 359 Status: routine BSA: 2.70 HR: 91 bpm BP: 98/61 mmHg Rhythm: NSR Other Information Study Quality: Adequate Indications Congestive Heart Failure Hypertension/HDD 2D Dimensions IVC: 25.00 mm Tricuspid Valve TR Peak Anthony.: 3.53 m/s TR Peak Gr.: 49.92 mmHg PA Pressure: 60.00 mmHg Left Ventricle The left ventricle is normal size. There is normal LV segmental wall motion. There is normal left ventricular wall thickness. The left ventricular systolic function is normal. LVEF is 55-60%. This study is not technically sufficient to allow evaluation of the LV diastolic function. Right Ventricle Right ventricle is dilated. Right ventricle is hypokinetic. [address] [place] [address] 2 D/M-MODE ECHOCARDIOGRAM Name: MILLIE MUNOZ Room #: 359-P ADM IN M.R.#: [id number] Admission: 07/20/19 Attend Phys: Luis Urrutia MD Discharge: Date of : 70 Report #: [id number] Atria The left atrium size is normal. Right atrium is dilated. Aortic Valve The aortic valve is normal in structure. No aortic regurgitation is present. Mitral Valve The mitral valve is normal in structure. There is no mitral valve regurgitation noted. Tricuspid Valve The tricuspid valve is normal in structure. There is mild tricuspid regurgitation. Estimated PAP 60 mmHg. There is moderate pulmonary hypertension. Great Vessels The aortic root is normal in size. IVC is dilated and collapses >50% with inspiration. Pericardium There is no pericardial effusion. <Conclusion> The left ventricle is normal size. There is normal left ventricular wall thickness. The left ventricular systolic function is normal. Right ventricle is dilated. Right atrium is dilated. The aortic valve is normal in structure. There is no mitral valve regurgitation noted. There is mild tricuspid regurgitation. Estimated PAP 60 mmHg. There is moderate pulmonary hypertension. <ELECTRONICALLY SIGNED> By: Lam Scruggs MD 07/21/19 1027 1027 1027 Lam Scruggs MD /INF
[2019-07-21 12:27] VITALS: BP 83/49
--- NOTE | 2019-07-21 15:01 | NUR ---
INITIAL ASSESSMENT: SW reviewed chart and spoke with nursing and attending physician. Pt was admitted from home due to acute respiratory failure/CHF. Pt with osteo of the left foot. Pt was recently discharge home with services through [facility] and Home IV Abx through [facility] and Wound Vac from [facility]. MICHEL met with pt at bedside. Introduced role of SW. Pt is alert/orientated x 4. Pt states he lives at home. Pt has a walker to use if needed. Pt reports he is currently on service with /[facility]. Pt's wound vac has been taken off. Pt's PCP is Dr. Mosquera. Plan is for pt to return home when medically stable and resume prior home services. SW notified Ivette at [facility]. Pt was on Cefazolin 1gm TID prior to admission. MICHEL is following to assist as needed with discharge planning.
[2019-07-21 16:17] VITALS: BP 138/114
--- NOTE | 2019-07-21 18:05 | NUR ---
assumed care of pt at 0700. pt alert and oriented, complaining of chest discomfort, cardio aware, and feeling generally lousy. started on 80mg iv lasix - voided approx 400 cc concentrated appearing urine. bp low but stable. good pain relief with morphine Q4H. not screening positive in sepssis screening. physician notified of said changes. pt calls out appropriately. will cont to monitor.
[2019-07-21 20:12] VITALS: BP 107/67
--- NOTE | 2019-07-22 04:24 | NUR ---
PT A/0X4 AND AMBULATES TO BATHROOM AD FAHEEM. GAVE PAIN MEDICATION X2, PT STATES PAIN IS A 9 AND LOCATED IN CHEST AND LEFT FOOT. EDUCATED PT ON NEED FOR URINE SAMPLE. AT 0420 WHILE IN PT ROOM HE STATES HE IS HAVING DIARRHEA NOW. WILL CONTINUE TO MONITOR. HOURLY ROUNDING.
[2019-07-22 04:44] VITALS: BP 114/70
[2019-07-22 05:45] LABS: CALCIUM 8.7 mg/dL (8.5-10.1); CREATININE 2.1 mg/dL (0.7-1.3); POTASSIUM 4.3 mmol/L (3.5-5.1)
[2019-07-22 07:21] VITALS: BP 103/61
[2019-07-22 10:35] LABS: URINE BILIRUBIN NEGATIVE (Negative); URINE BLOOD 1+ (Negative); URINE CLARITY CLEAR; URINE COLOR YELLOW; URINE GLUCOSE-RANDOM* 1+ (Negative); URINE KETONES NEGATIVE (Negative); URINE LEUKOCYTES-REFLEX TRACE (Negative); URINE NITRITE-REFLEX NEGATIVE (Negative); URINE PROTEIN (DIPSTICK) NEGATIVE (Negative); URINE SPECIFIC GRAVITY 1.025 (1.005-1.035); URINE UROBILINOGEN 0.2 E.U./dl (0.2-1.0)
[2019-07-22 10:52] LABS: AMORPHOUS URATES Few /LPF (None Seen); BACTERIA-REFLEX 1-9 Few /HPF (None Seen); CRYSTALS None Seen /LPF (None Seen); SQUAMOUS 0-3 Few /LPF (0-3); URINE RBC 3-10 Few /HPF (0-2); URINE WBC-REFLEX None Seen /HPF (0-5)
[2019-07-22 11:14] VITALS: BP 89/41
--- NOTE | 2019-07-22 15:06 | NUR ---
MICHEL reviewed chart and spoke with nursing and attending physician. Pt is progressing towards goals for discharge. Discharge home is anticipated in 1-2 days. Pt will resume HH services through [facility] and IV infusion through [facility]. MICHEL faxed clinical info to both agencies for review. ID consulted today for recommendation for IV abx. MICHEL is following to assist as needed with discharge planning.
--- NOTE | 2019-07-22 15:34 | NUR ---
WOUND CARE F/U; ROUNDING WITH DR ABDUL. THE LEFT DORSUM FOOT WOUND BED HAS BEEFY RED, HEALTHY TISSUE WITH NO S/S OF INFECTION. PAIN IS DRAMATICALLY DECREASED. CONTINUE POC DISCUSSED WITH CARI
--- NOTE | 2019-07-22 15:39 | HC ---
[facility] [place] [address] CONSULTATION Name: MILLIE MUNOZ Room #: 359-P ADM IN M.R.#: [id number] Admission: 07/20/19 Attend Phys: Luis Urrutia MD Discharge: Date of : 70 Report #: [id number] THIS REPORT FOR: cc: Flip Hickey James A. DO Althoff, Jeffrey R. MD ~ CC: Luis Solo DATE OF SERVICE: 07/21/2019 CHIEF COMPLAINT: Surgical wound to the left foot. HISTORY OF PRESENT ILLNESS: This is a 49-year-old male patient with whom I am familiar from multiple recent hospitalizations underwent third toe and metatarsal head amputation on the left foot on 06/10/2019. He has been healing well and denies any problems or pain associated with this. He, however, was readmitted with increasing shortness of breath with exertion and orthopnea and I have been asked to see him with regard to continuation of wound care. PAST MEDICAL HISTORY: Positive for history of sepsis, type 2 diabetes mellitus, hypertension, diabetic ulcer to the left foot, bilateral pulmonary emboli, and prior right ankle reconstruction. SOCIAL HISTORY: Negative for alcohol or tobacco use. FAMILY HISTORY: Noncontributory. MEDICATIONS: Include Cymbalta, Trulicity, Jardiance, Cardizem, Neurontin, Tresiba, Humalog. ALLERGIES: No known drug allergies. REVIEW OF SYSTEMS: CONSTITUTIONAL: The patient denies fever, chills, or weight loss. NEUROLOGICAL: The patient denies focal weakness, numbness, or tingling. EYES: The patient denies visual changes, redness, or drainage. ENT: The patient denies earache, nasal drainage, sore throat. CARDIOVASCULAR: The patient denies chest pain, palpitations, or diaphoresis. PULMONARY: The patient does complain of shortness of breath and dyspnea on exertion. Denies cough or sputum production. GASTROINTESTINAL: The patient denies nausea, vomiting, diarrhea, or abdominal pain. MUSCULOSKELETAL: The patient denies back pain, muscle pain, joint pain. Does have the ulceration on his foot. [facility] [address] [address] CONSULTATION Name: MILLIE MUNOZ Room #: 359-P [facility] IN M.R.#: [id number] Admission: 07/20/19 Attend Phys: Luis Urrutia MD Discharge: Date of : 70 Report #: [id number] SKIN: The patient denies rashes, itching, or lumps. GENITOURINARY: The patient denies frequency or urgency of urination. Denies dysuria. Other systems in a 14-point review of systems are negative. PHYSICAL EXAMINATION: VITAL SIGNS: Include pulse rate 100, temperature 97.8, respiratory rate of 11, blood pressure 93/64. GENERAL: This is a well-developed male patient who appears to be in minimal distress. HEENT: Head normocephalic. Nose and throat clear. NECK: Supple. LUNGS: Diminished. HEART: Regular rhythm. ABDOMEN: Soft, bowel sounds present, nontender. EXTREMITIES: Lower extremities demonstrate palpable pulses. The surgical wound on the left foot appears clean, healthy, granulating, and smaller than the last time I saw him. NEUROLOGIC: The patient is alert, oriented, and appropriate. LABORATORY STUDIES: Include white blood cell count 7.1, hemoglobin 12.0. Sodium 138, potassium 4.1, chloride 102, CO2 of 24, BUN 43, creatinine 1.6, glucose 204. CLINICAL IMPRESSION: 1. Surgical wound, left foot, following third toe and metatarsal amputation, doing well. 2. Type 2 diabetes mellitus with peripheral neuropathy. 3. History of osteomyelitis. 4. Dyspnea, possibly secondary to congestive heart failure. 5. History of recent pneumonia. 6. Hypertension. RECOMMENDATIONS: At this point in time, we will recommend treatment of his left foot with topical Usha or similar-type collagen material to be changed Friday, Friday, and Friday covered with a foam-based dressing. Weightbearing as tolerated would be appropriate. Recommend continuation of current medications, physical therapy as tolerated. He will need ongoing nutritional support to maintain wound healing as well as to optimize glycemic control. I appreciate being asked to see him in consultation. <ELECTRONICALLY SIGNED> By: Sergio Peña MD 07/22/19 1539 1846 [id number] Sergio Peña MD /nt
[2019-07-22 15:46] VITALS: BP 106/63
[2019-07-22 19:42] VITALS: BP 106/64
[2019-07-23 04:10] VITALS: BP 115/66
[2019-07-23 06:06] LABS: HEMATOCRIT 33.9 % (42.0-52.0); HEMOGLOBIN 10.9 gm/dL (14.0-18.0); MCHC 32.1 g/dL (28.0-37.0); MCV 87.2 fL (80.0-100.0); RBC 3.89 mil/uL (4.50-6.00); RDW 17.2 % (10.5-14.5); WBC 5.1 thou/uL (4.0-11.0)
--- NOTE | 2019-07-23 06:15 | NUR ---
ASSUMED CARE AT 1900. PT C/O RIGHT FLANK, STERNAL, AND LEFT FOOT PAIN ALL AT 9/10; REPORTED PAIN LEVEL DROPPED TO 7 WITH IV MORPHINE. PT REPORTS BEING ANXIOUS ABOUT HIS SITUATION-STARTED ON ATIVAN. DENIES SOB EXCEPT WHEN HIS ANXIETY WORSENS OR WITH A LOT OF ACTIVITY; TOLERATED BIPAP FOR A FEW HOURS OVERNIGHT THEN ASKED FOR THE NC FOR COMFORT. ABOUT 0130, PT CALLED OUT C/O WORSENING RIGHT FLANK PAIN; OBTAINED ONE TIME ORDER FOR NORCO WHICH PT REPORTED DIDN'T HELP MUCH; GAVE AN ICE PACK AND ALSO A DOSE OF IV ATIVAN. PT NO LONGER TEARFUL AND RESTLESS BUT STILL C/O PAIN. PICC NURSE ADJUSTED THE LENGTH OF THE PICC LINE AND REDRESSED THE SITE. NO OTHER CONCERNS, WILL CONTINUE TO MONITOR.
[2019-07-23 06:21] LABS: ALBUMIN 2.9 g/dL (3.4-5.0); CALCIUM 8.3 mg/dL (8.5-10.1); CREATININE 1.5 mg/dL (0.7-1.3); PHOSPHORUS 4.1 mg/dL (2.5-4.9); POTASSIUM 4.5 mmol/L (3.5-5.1)
[2019-07-23 07:38] VITALS: BP 120/68
--- NOTE | 2019-07-23 08:29 | HC ---
[facility] [place] [address] CONSULTATION Name: MILLIE MUNOZ Room #: 359-P ADM IN M.R.#: [id number] Admission: 07/20/19 Attend Phys: Luis Urrutia MD Discharge: Date of : 70 Report #: [id number] THIS REPORT FOR: cc: Flip Hickey James A. DO Al-Absi, Ahmed I. MD ~ CC: Luis Solo DATE OF SERVICE: 07/22/2019 REASON FOR CONSULTATION: Acute kidney injury. REASON FOR PRESENTATION: Shortness of breath. HISTORY OF PRESENT ILLNESS: A 49-year-old with history of diabetes mellitus and diabetic retinopathy. He also has history of osteomyelitis and diabetic neuropathy in the past. He has history of DVT and is maintained on chronic anticoagulation. He presented with nausea, vomiting, shortness of breath and right-sided chest pain. He was admitted for further evaluation and management. Blood sugar has been on the high side. He sees wound care people. He also not aware of any previous kidney problems by his primary care physician; however, looking through the patient's creatinine does look like that he has an elevated creatinine back in June of this year. We have never evaluated this patient prior to his presentation. He admits to poorly controlled diabetes mellitus. He also tells me that he has been taking nonsteroidal anti-inflammatory medications on a daily basis. He reported to bilateral lower extremity swelling, but this has not been changed. He previously required daptomycin for his wound infections. He is maintained on furosemide as an outpatient. He also was taking daily ibuprofen. PAST MEDICAL HISTORY: 1. Diabetes mellitus. 2. Diabetic complications including amputations due to ulcer and osteomyelitis. 3. Deep venous thrombosis. 4. Pulmonary embolism. 5. Status post left lower extremity metatarsal amputation. 6. Right ankle reconstruction surgery. 7. Remote history of acute kidney failure requiring temporary hemodialysis. The patient's details are not available. 8. Pulmonary hypertension. ALLERGIES: None. SOCIAL HISTORY: He denies drug or alcohol abuse. [facility] [address] [place] [address] CONSULTATION Name: MILLIE MUNOZ Room #: 359-P [facility] [place] M.R.#: [id number] Admission: 07/20/19 Attend Phys: Luis Urrutia MD Discharge: Date of : 70 Report #: [id number] FAMILY HISTORY: Significant for diabetes mellitus and hypertension. SOCIAL HISTORY: . Lives by himself. 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 REVIEW OF SYSTEMS: GENERAL: No fever or chills. CARDIOVASCULAR: No chest pain, but he has significant shortness of breath. PULMONARY: No cough or hemoptysis, but he has significant shortness of breath. GASTROINTESTINAL: Occasional nausea. GENITOURINARY: No frequency, no urgency. MUSCULOSKELETAL: Occasional myalgias. HOME MEDICATIONS: 1. Eliquis. 2. Diltiazem. 3. Gabapentin. 4. Furosemide. 5. Cefazolin. 6. Jardiance. PHYSICAL EXAMINATION: NEUROLOGICAL: He is alert, oriented. VITAL SIGNS: Temperature is 37.2, blood pressure is marginal at 103/61. HEAD AND NECK: No jugular venous distention. CHEST: No crackles. CARDIOVASCULAR: No rub. ABDOMEN: Soft, nontender. EXTREMITIES: Lower extremities prior amputations. No edema. LABORATORY DATA: Reviewed. White blood cell count is 7.1, hemoglobin is 12, platelet is 52. Sodium is 136, potassium is 4.3, BUN is 53, creatinine is 2.1. ASSESSMENT, IMPRESSION AND PLAN: 1. Acute kidney injury due to hypotension. 2. Diabetes mellitus. 3. All diabetic complications including retinopathy, nephropathy, neuropathy. 4. Deep venous thrombosis. 5. Pulmonary embolism. 6. Previously required hemodialysis. 7. The patient's acute kidney injury is related to hypotension. 8. Discontinue diuresis. 9. Initiate IV fluid. 10. Obtain basic workup. 11. No blood pressure medications at this point. [place] [id number] CONSULTATION Name: MILLIE MUNOZ Room #: 359-P [facility] [place] .R.#: [id number] Admission: 07/20/19 Attend Phys: Luis Urrutia MD Discharge: Date of : 70 Report #: [id number] 12. Discontinue all nonsteroidal anti-inflammatory medications. 13. Management of his diabetes mellitus as per the primary team. <ELECTRONICALLY SIGNED> By: Neyda Douglas MD 07/23/19 0829 0733 [id number] Neyda Douglas MD /nt
[2019-07-23 11:38] LABS: URINE CREATININE-RANDOM* 92.1 mg/dL
[2019-07-23 16:16] VITALS: BP 120/68
--- NOTE | 2019-07-23 16:19 | NUR ---
MICHEL reviewed chart and spoke with nursing and attending physician. Pt may be ready for discharge home over the weekend. Pt will resume HH services and Home IV abx. MICHEL sent clinical updates to [facility] and spoke with Olga in intake to notify of weekend discharge. SW sent updates to [facility] and notified liaison. Pt to be on Avycaz 2.5g every 8 hours. Contact info for HH and Home Infusion placed in pt's discharge summary. Final discharge orders/summary will need to be faxed when available. MICHEL is available to assist as needed with discharge planning. [facility] -- [facility]--
[2019-07-23 19:15] VITALS: BP 136/87
--- NOTE | 2019-07-24 04:08 | NUR ---
SHORTLY AFTER SHIFT CHANGE NURSE HAD A CONVERSATION WITH PATIENT REGARDING HIS ANXIETY AND PAIN. PATIENT STATED THAT "DOES NOT WANT" ATIVAN BECAUSE HE DID NOT LIKE THE WAY IT MADE HIM FEEL "DROWSY". NURSE LISTENED TO PATIENTS COMPLAINTS AND CONTACTED PROVIDER TO CHANGE MEDICATION TO VISTARIL IN HOPE OF BETTER REACTION FOR PATIENT. SHORTLY AFTERWARD PATIENTS GIRLFRIEND CONTACTED NURSE AND WAS IRATE ABOUT NOT BEING LET UP TO PATIENTS ROOM DUE TO NEW HOSPITAL GUIDELINES, AND PATIENT NOT RECEIVING HIS LORAZEPAM. NURSE TRIED MULTIPLE TIMES TO EXPLAIN TO HER THAT PATIENT IS FULLY ALERT AND ORIENTED AND HAS RIGHTS CONCERNING THE MEDICATIONS HE RECEIVES. SHE STATED THAT SHE "NEEDS" TO BE AT BEDSIDE "TO COMMUNICATE FOR HIM".
[2019-07-24 05:00] VITALS: BP 139/83
[2019-07-24 05:54] LABS: HEMATOCRIT 35.9 % (42.0-52.0); HEMOGLOBIN 11.4 gm/dL (14.0-18.0); MCH 27.8 pg (26.0-34.0); MCHC 31.9 g/dL (28.0-37.0); MCV 87.3 fL (80.0-100.0); RBC 4.11 mil/uL (4.50-6.00); RDW 17.5 % (10.5-14.5)
[2019-07-24 06:13] LABS: CALCIUM 8.5 mg/dL (8.5-10.1); CREATININE 1.2 mg/dL (0.7-1.3); POTASSIUM 4.7 mmol/L (3.5-5.1)
[2019-07-24 08:24] VITALS: BP 135/82
[2019-07-24 11:36] VITALS: BP 120/80
--- NOTE | 2019-07-24 12:51 | HC ---
Formerly [facility] [place] [address] CONSULTATION Name: MILLIE MUNOZ Room #: 359-P ADM IN M.R.#: [id number] Admission: 07/20/19 Attend Phys: Luis Urrutia MD Discharge: Date of : 70 Report #: [id number] THIS REPORT FOR: cc: Flip Hickey James A. DO Geha, Daniel J. MD ~ CC: Luis Solo DATE OF SERVICE: 07/22/2019 INFECTIOUS DISEASE CONSULTATION REASON FOR CONSULTATION: I was asked to evaluate concerning left third metatarsal osteomyelitis and respiratory compromise. 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 He was found to have evidence of mucus plugging with negative chest x-ray and CT scan. Had large mucus plug in his main stem and right bronchial tree. Also had what was considered reflux edema during that procedure bronchoscopy. Cultures grew from 3 different specimens Klebsiella pneumoniae that was multidrug-resistant sensitive to tetracycline, amikacin and have Avycaz. These results were not available at the time of his discharge or hospitalization. He was discharged on cefazolin to finish his course of antibiotics for his foot. He returned to the hospital again with shortness of breath prior to his followup visit in the outpatient ID clinic. He has had no fever, chills or sweats. Oxygen saturation varies. He was desaturating at the time of his presentation. Now he is off oxygen. Overall, feels a bit better, but has not walked yet. He notes that his symptoms returned within 24 hours of his dismissal last admit. Denies any fever, chills or sweats. He is unable to expectorate. No significant peripheral edema. He has not lost any weight yet. Blood sugar control has been reasonable. No other cardiac, GI or complaints. He has a left upper extremity PICC, which is functioning well. A 14-point review of systems was negative other than what has been described above. His wound VAC is now off and he is doing daily dressing changes. ALLERGIES: None known. MEDICATIONS: As noted on his MAR including cefazolin. [address] [address] CONSULTATION Name: MILLIE MUNOZ Room #: 359-P ADM IN .R.#: [id number] Admission: 07/20/19 Attend Phys: Luis Urrutia MD Discharge: Date of : 70 Report #: [id number] PAST MEDICAL HISTORY, FAMILY HISTORY, AND SOCIAL HISTORY: Unchanged from his history and physical and that of my previous consultation from last week. PHYSICAL EXAMINATION: VITAL SIGNS: He was afebrile and hemodynamically stable. GENERAL: He is alert and cooperative, in no acute distress. EXTREMITIES: Left upper extremity PICC was being changed and the patient is in drape for sterile dressing change. He was on room air and comfortable lying in bed. Left foot was dressed and dry. LABORATORY STUDIES: Reviewed. Microbiology reviewed. Chest x-ray was reviewed and clear. IMPRESSION: 1. A 49-year-old with recurrent shortness of breath. Workup in progress noting now he had a multidrug-resistant Klebsiella pneumoniae, lower respiratory tract infection identified from bronchoscopy 10 days ago. He had tracheobronchial mucus plugging identified at bronchoscopy. Imaging studies had not detected this abnormality. I am questioning whether this is underlying problem. It appeared that he improved after bronchoscopy, only to have this same symptom complex developed within a day after dismissal. Finishing his course of therapy for methicillin-susceptible Staph aureus osteomyelitis of the third metatarsal. 2. Diabetes. 3. Morbid obesity. 4. Obstructive sleep apnea. 5. Peripheral vascular disease. 6. Acute kidney injury. 7. Hypertension. RECOMMENDATIONS: We will continue with antibiotic therapy with Avycaz and that should allow us good coverage for his pulmonary infection as well as continue coverage for his foot. We will continue pulmonary evaluation and discuss further with Pulmonary Medicine. Continue with mucolytics and hydration. Pulmonary toilet. We will finish his course of antibiotics for his osteomyelitis at the time of discharge. <ELECTRONICALLY SIGNED> By: Pramod Flores MD 07/24/19 1251 [id number] Pramod Flores MD /nt
[2019-07-24 15:19] VITALS: BP 133/79
--- NOTE | 2019-07-24 17:22 | NUR ---
SIGNIFICANT OTHER AT BEDSIDE THIS SHIFT. VOICED CONCERNS OVER PAIN MANAGEMENT, MEDICATIONS, AND DESIRE TO SPEAK WITH PROVIDER REGARDING PLAN OF CARE. SIGNIFICANT OTHER SAT WITH HOSPITALIST TO DISCUSS PATIENT CAR AND MEDICATION. PO PAIN MEDS STARTED THIS SHIFT. PATIENT REPORTS MINIMAL PAIN RELIEF. PROVIDER NOTIFIED, RECEIVED NEW ORDERS. FALL PRECAUTIONS IN PLACE. CALLS FOR ASSIST. REMAINED ON ROOM AIR THIS SHIFT, NO S/S OF RESP DISTRESS. REPORTS GIVEN TO KRISTA LACALA AT 1630.
[2019-07-24 21:05] VITALS: BP 151/90
--- NOTE | 2019-07-24 23:07 | NUR ---
PT SITTING UP IN LOUNGE CHAIR, CALLED FOR ASSIST TO AMBULATE TO RESTROOM AND BED. PT REQUESTED PRN FOR FLANK PAIN X1. PT REQUESTED HS SNACK. BLUNTED AFFECT, POOR EYE CONTACT. PT OBESE GENERALIZED EDEMA. PICC LINE INTACT. PT REQUESTED SCDS AND PLACED ON. L FOOT DRESSING INTACT DRY. CPAP HS.
[2019-07-25 04:38] VITALS: BP 133/50
[2019-07-25 07:51] VITALS: BP 149/81
[2019-07-25 11:38] VITALS: BP 149/81
[2019-07-25 15:34] VITALS: BP 134/77
[2019-07-25 19:14] VITALS: BP 155/85
--- NOTE | 2019-07-25 20:28 | NUR ---
PATIENT REPORTS PAIN PARTIALLY MANAGED. REPORTS THAT PAIN NEVER DECREASES BELOW 7/10. PATIENT WALKED IN ROOM THIS SHIFT WITH STB ASSIST. NO BOWEL MOVEMENT THIS SHIFT, DENIES FEELING CONSTIPATED. ISOLATION MAINTAINED THIS SHIFT. FALL PRECAUTIONS IN PLACE. RUMA STARTED THIS SHIFT ORDERED.
[2019-07-26 03:16] VITALS: BP 179/94
--- NOTE | 2019-07-26 05:38 | NUR ---
Pt progressing towards dic goals. Tolerated cpap well. Sats WNL. Lungs clear but diminished and umlabored. HRR. Bp moderately elevated 159/76 this am. Pain meds given for c/o left flank pain /10 and left foot pain. Encouraged pt to save urine for accurate I&O. Left foot dressing remains clean dry and intact.
[2019-07-26 07:50] VITALS: BP 151/92
--- NOTE | 2019-07-26 10:28 | NUR ---
PT CARE ASSUMED AT 0700, PT ALERT AND ORIENTED X4, DENIES NAUSEA, VOMITING AND CHEST PAIN. PT COMPLAINS OF LEFT FOOT AND LOWER BACK PAIN. PT MEDICATED PER ORDER. PT UP IN CHAIR. CALL LIGHT ABD TABLKE IN REACH. PT DENIES ANY NEEDS. WILL CONTINUE TO MONITOR.
[2019-07-26 11:42] VITALS: BP 134/73
--- NOTE | 2019-07-26 13:35 | NUR ---
SW reviewed chart and spoke with nursing and attending physician. Pt is slowly progressing towards goals for discharge. 5N consult ordered today to evaluate pt for inpt acute rehab. SW updated Arianna with [facility]. Pt has been on service with [facility] for IV abx, [facility] for HH and [facility] for wound vac. Awaiting input from 5N. SW is following to assist as needed with discharge planning.
[2019-07-26 16:10] VITALS: BP 134/77
[2019-07-26 19:20] VITALS: BP 135/79
--- NOTE | 2019-07-27 03:02 | NUR ---
PATIENT AOX4 MAKES NEEDS KNOWN. PAIN CONTROLLED THIS SHIFT. PATIENT DRESSING ON LEFT FOOT IS C/D/I. PATIENT AMBULATES WITH STEADY GAITS. PATIENT IS UP AT FAHEEM. CALL LIGHT AND PERSONAL ITEM WITHIN REACH. PATIENT IN BED ASLEEP AT THIS TIME BREATHING REGULAR AND UNLABOURED.
[2019-07-27 04:09] VITALS: BP 125/73
[2019-07-27 07:27] VITALS: BP 144/89
[2019-07-27] MEDS ORDERED: FLEXERIL PO (09:11)
--- NOTE | 2019-07-27 09:13 | NUR ---
Nutrition: Assessed due to LOS. Admit: acute respiratory failure, pneumonia, CHF. Hx: DM II, HTN, PVD, PE, diabetic L toe ulcer. Pt w/ ongoing surgical wound to L foot of 3rd metatarsal. Hx osteomyelitis indicated in EMR, on 6 wks IV antibiotic treatment. On a heart healthy diet given mention of acute on chronic diastolic heart failure. Diuresing w/ torsemide. At visit, pt denies any nutrition questions or concerns. Eating very well. RD familiar to this pt from past admits. Already educated on rich protein sources and nutrient needs to support healing. Pt admits to doing excellent w/ protein intake, ate 100% all meals on 07/25. BGs 163-180 mg/dl yesterday, w/ SSI and Tradjenta. A1c 7.6% per labs. RD educated on rationale for low Na diet given CHF and informed of high Na foods to use caution with, ideally avoid. Wt fluctuates mid 340s to mid 350s this admit, but overall, pt is down 18# from a few mo ago. 06/08/19: 375# 07/06/19: 357# 07/25/19: 356# No further nutrition needs. Encouraged pt to notify nursing if additional diet ed needed. Low risk.
[2019-07-27] MEDS ORDERED: DOXYCYCLINE 10100 M2 PO (09:17)
--- NOTE | 2019-07-27 10:39 | NUR ---
PT CARE ASSUMED AT 0700, PT ALERT AND ORIENTED X4, DENIES ANY NAUSEA, VOMITING NOR CHEST PAIN. PT COMPLAINS OF BACK PAIN, MEDICATED PER ORDER. NO SIGNS OF DISTRESS NOTED. ASSESSMENT COMPLETED. PT UPDATED ON CARE AND ABOUT DISCHARGE. DISCHARGE IN PROCESS. PT UP IN CHAIR . CALL LIGHT IN AND TABLE IN REACH.
[2019-07-27 11:02] VITALS: BP 120/68
[2019-07-27 11:15] VITALS: BP 120/68
[2019-07-27 11:34] VITALS: BP 119/69
--- NOTE | 2019-07-27 14:21 | NUR ---
DRESSING CHANGE COMPLETED, AND PICTURE TAKEN. PT DISCHARGE INSTRUCTION AND DOCTORS APPOINTMENT GIVEN TO PT. PICC LINE TAKEN OUT PER DR RESENDIZ ORDERS. PT BEONGINGS PACKED. WAITING FOR PT'S RIDE
--- NOTE | 2019-07-27 14:41 | NUR ---
pt taken down via wheelchair.
--- NOTE | 2019-07-27 14:53 | NUR ---
DISCHARGE NOTE: MICHEL reviewed chart and spoke with nursing and attending physician. 5N evaluated pt and he is too high level for inpt acute rehab. Pt is medically stable for discharge home today. Pt will discharge home with services for wound care. Pt will be on PO abx. PICC line to be pulled prior to discharge. MICHEL notified Arianna at [facility] that pt will not need home IV abx. MICHEL faxed finalized discharge orders/summary to Kayce . MICHEL notified HH liaison of discharge orders. MICHEL spoke with Yasmin in intake to confirm orders were received. Contact info for HH placed in pt's discharge summary. Pt's family to provide transportation home. No additional SW needs identified at this time, but is available to assist should needs arise.
== END 2019-07-27 15:00 | disposition home health service (06) | DRG 177 ==
LOC: ER 16:45 → 3W 18:32 → EROBS 18:32 → 3W 19:29
PROVIDERS: Hospitalist; Nurse Practitioner Adult Health; Physician Assistant; ADMIT Hospitalist
PROC: 5A09357 Assistance with Respiratory Ventilation, Less than 24 Consecutive Hours, Continuous Positive Airway Pressure (ICD-10-PCS; principal; 2019-07-22)
PROC: 5A09357 Assistance with Respiratory Ventilation, Less than 24 Consecutive Hours, Continuous Positive Airway Pressure (ICD-10-PCS; 2019-07-23)
PROC: 5A09357 Assistance with Respiratory Ventilation, Less than 24 Consecutive Hours, Continuous Positive Airway Pressure (ICD-10-PCS; 2019-07-24)
DX: J15.0 Pneumonia due to Klebsiella pneumoniae (principal); I50.33 Acute on chronic diastolic (congestive) heart failure; J96.21 Acute and chronic respiratory failure with hypoxia; N17.9 Acute kidney failure, unspecified; I13.0 Hypertensive heart and chronic kidney disease with heart failure and stage 1 through stage 4 chronic kidney disease, or unspecified chronic kidney disease; E66.2 Morbid (severe) obesity with alveolar hypoventilation; M86.8X7 Other osteomyelitis, ankle and foot; Z68.42 Body mass index [BMI] 45.0-49.9, adult; E11.319 Type 2 diabetes mellitus with unspecified diabetic retinopathy without macular edema; I27.20 Pulmonary hypertension, unspecified; I95.9 Hypotension, unspecified; E11.21 Type 2 diabetes mellitus with diabetic nephropathy; E11.42 Type 2 diabetes mellitus with diabetic polyneuropathy; E11.65 Type 2 diabetes mellitus with hyperglycemia; E11.51 Type 2 diabetes mellitus with diabetic peripheral angiopathy without gangrene; N18.9 Chronic kidney disease, unspecified; E11.22 Type 2 diabetes mellitus with diabetic chronic kidney disease; E11.69 Type 2 diabetes mellitus with other specified complication; Z86.718 Personal history of other venous thrombosis and embolism; Z79.01 Long term (current) use of anticoagulants; Z87.01 Personal history of pneumonia (recurrent); Z83.3 Family history of diabetes mellitus; Z82.49 Family history of ischemic heart disease and other diseases of the circulatory system; Z89.432 Acquired absence of left foot; Z79.899 Other long term (current) drug therapy; Z79.82 Long term (current) use of aspirin; Z79.4 Long term (current) use of insulin; Z79.51 Long term (current) use of inhaled steroids
CPT/HCPCS: 10879

== ENCOUNTER → 2019-07-20 | Outpatient (CLI) | payer OTHER ==
[~2019-07-20] MED LIST changes: +CEFAZ1 ADV IV; +ELIQUIS5 MG PO; +IPRAT-ALBUT 0.5-3 ML INH; +LIDOCAINE PAIN1 EACH TRANSDERM; +LOPRESSOR25 PO; +MOBIC7.5 MG PO; +PEPCID20 MG PO; +VOLTAREN100 GM TOP
== END ==
LOC: HYPER 13:15
DX: T87.81 Dehiscence of amputation stump (principal); E11.621 Type 2 diabetes mellitus with foot ulcer; L97.522 Non-pressure chronic ulcer of other part of left foot with fat layer exposed; E11.40 Type 2 diabetes mellitus with diabetic neuropathy, unspecified; R60.0 Localized edema; E11.69 Type 2 diabetes mellitus with other specified complication; M86.372 Chronic multifocal osteomyelitis, left ankle and foot; L84 Corns and callosities; E44.0 Moderate protein-calorie malnutrition; Z86.14 Personal history of Methicillin resistant Staphylococcus aureus infection; Z68.42 Body mass index [BMI] 45.0-49.9, adult; Z86.718 Personal history of other venous thrombosis and embolism; Z86.711 Personal history of pulmonary embolism; Z79.84 Long term (current) use of oral hypoglycemic drugs; Y83.5 Amputation of limb(s) as the cause of abnormal reaction of the patient, or of later complication, without mention of misadventure at the time of the procedure

== ENCOUNTER → 2019-08-03 | Outpatient (CLI) | payer OTHER ==
[~2019-08-03] MED LIST changes: +DOXYCYCLINE 10100 M2 PO; +FLEXERIL PO; +LIDOCAINE PAIN1 EACH TRANSDERM; +MOBIC7.5 MG PO
== END ==
LOC: HYPER 14:18
DX: T81.31XD Disruption of external operation (surgical) wound, not elsewhere classified, subsequent encounter (principal); E11.621 Type 2 diabetes mellitus with foot ulcer; L97.522 Non-pressure chronic ulcer of other part of left foot with fat layer exposed; E11.40 Type 2 diabetes mellitus with diabetic neuropathy, unspecified; R60.0 Localized edema; E44.0 Moderate protein-calorie malnutrition; E11.69 Type 2 diabetes mellitus with other specified complication; M86.372 Chronic multifocal osteomyelitis, left ankle and foot; N19 Unspecified kidney failure; Z89.422 Acquired absence of other left toe(s); Z86.718 Personal history of other venous thrombosis and embolism; Y83.8 Other surgical procedures as the cause of abnormal reaction of the patient, or of later complication, without mention of misadventure at the time of the procedure

== ENCOUNTER → 2019-08-05 | Outpatient (CLI) | payer OTHER ==
--- NOTE | 2019-08-08 21:12 | SLE ---
[facility] [place] [address] POLYSOMNOGRAPHY STUDY Name: MILLIE MUNOZ Room #: [facility].#: [id number] Admission: 08/05/19 Attend Phys: Fritz Solo MD Discharge: Date of : 70 Report #: [id number] THIS REPORT FOR: //name// CC: Flip Solo MD DATE OF SERVICE: 08/05/2019 SLEEP STUDY ATTENDING PHYSICIAN: Dr. Fritz Solo. The patient is a 49-year-old who weighs 353 pounds with a BMI of 46.6. The patient's Dawson score was 15. The patient underwent a diagnostic sleep study performed at [facility]. During the night study, the patient spent 520 minutes in bed and slept for 501 minutes with a sleep efficiency of 96%. Sleep latency was 2.2 minutes, which was short with a REM latency of 281 minutes. Sleep architecture showed normal stage 1 sleep, increased stage 2 sleep, absent slow wave and reduced REM sleep, which was 10% of total sleep time. During the night study, the patient had 33 obstructive apneas, 1 mixed apnea and 52 central apneas. The patient's AHI was 19.7 per hour with a REM AHI of 57 per hour and a supine AHI of 19.3 per hour. EKG monitoring revealed an average heart rate of 86 beats per minute. No sustained arrhythmias observed. PLMS were seen at an index of 58 per hour and 2.7 per hour caused EEG arousals. Nocturnal oximetry study revealed an average oxygen saturation of 94% with lowest of 70%. A 26.8 minutes were spent in oxygen saturation less than 89%. IMPRESSION: 1. Moderate Sleep apnea (AHI 19.7/hr) with worsening during REM sleep (57/hr) Patient's sleep apnea was complexed including combination of obstructive and central apneas. 2. Nocturnal hypoxia secondary to obstructive sleep apnea. 3. Severe PLMS without any significant EEG arousals. The patient's PLM index was 58 per hour with an arousal index of 2.7 per hour. RECOMMENDATIONS: 1. The patient would benefit from treatment of sleep apnea with in-lab CPAP titration study due to presence of complex sleep apnea. Alternate treatment [facility] [address] [place] [address] POLYSOMNOGRAPHY STUDY Name: MILLIE MUNOZ Room #: REG [facility] Aaron#: [id number] Admission: 08/05/19 Attend Phys: Fritz Solo MD Discharge: Date of : 70 Report #: [id number] option would include home Auto- Pap titration study. 2. Once the patient is optimally treated, then follow up in 4-6 weeks to assess compliance with CPAP and to document clinical improvement. 3. Weight loss is strongly advised. 4. Avoid PHYSICAL METALLURGIST depressants. 5. Cautioned regarding driving until symptoms of sleep apnea resolved with the use of CPAP. 6. The patient's PLMS does not need to be treated unless the patient has symptoms of restless legs during the day. <ELECTRONICALLY SIGNED> By: Abdirizak Osuna MD 08/08/19 2112 [id number] Abdirizak Osuna MD /nt
== END ==
LOC: SLEEPLAB 20:58
DX: G47.33 Obstructive sleep apnea (adult) (pediatric) (principal); R09.02 Hypoxemia

== ENCOUNTER → 2019-08-09 | Outpatient (CLI) | payer OTHER | LOC: RAD 15:50 | DX: J22 Unspecified acute lower respiratory infection (principal) ==

== ENCOUNTER → 2019-08-17 | Outpatient (CLI) | payer OTHER | LOC: HYPER 08:07 | DX: T81.31XD Disruption of external operation (surgical) wound, not elsewhere classified, subsequent encounter (principal); E11.621 Type 2 diabetes mellitus with foot ulcer; L97.522 Non-pressure chronic ulcer of other part of left foot with fat layer exposed; E11.40 Type 2 diabetes mellitus with diabetic neuropathy, unspecified; L84 Corns and callosities; R60.0 Localized edema; E11.69 Type 2 diabetes mellitus with other specified complication; M86.372 Chronic multifocal osteomyelitis, left ankle and foot; E44.0 Moderate protein-calorie malnutrition; Z86.14 Personal history of Methicillin resistant Staphylococcus aureus infection; Z86.718 Personal history of other venous thrombosis and embolism; Z86.711 Personal history of pulmonary embolism; Z79.84 Long term (current) use of oral hypoglycemic drugs; Z89.422 Acquired absence of other left toe(s); Z79.82 Long term (current) use of aspirin; Y83.8 Other surgical procedures as the cause of abnormal reaction of the patient, or of later complication, without mention of misadventure at the time of the procedure ==

== ENCOUNTER → 2019-08-24 | Outpatient (CLI) | payer OTHER | LOC: HYPER 15:24 | DX: T87.81 Dehiscence of amputation stump (principal); E11.621 Type 2 diabetes mellitus with foot ulcer; L97.522 Non-pressure chronic ulcer of other part of left foot with fat layer exposed; E11.40 Type 2 diabetes mellitus with diabetic neuropathy, unspecified; E44.0 Moderate protein-calorie malnutrition; E11.69 Type 2 diabetes mellitus with other specified complication; M86.372 Chronic multifocal osteomyelitis, left ankle and foot; Z68.42 Body mass index [BMI] 45.0-49.9, adult; Z86.14 Personal history of Methicillin resistant Staphylococcus aureus infection; Z86.718 Personal history of other venous thrombosis and embolism; Z86.711 Personal history of pulmonary embolism; Z79.84 Long term (current) use of oral hypoglycemic drugs; Y83.5 Amputation of limb(s) as the cause of abnormal reaction of the patient, or of later complication, without mention of misadventure at the time of the procedure ==

== ENCOUNTER → 2019-09-16 | Outpatient (CLI) | payer OTHER | LOC: HYPER 11:18 | DX: E11.621 Type 2 diabetes mellitus with foot ulcer (principal); L97.512 Non-pressure chronic ulcer of other part of right foot with fat layer exposed; L97.522 Non-pressure chronic ulcer of other part of left foot with fat layer exposed; L84 Corns and callosities; R60.0 Localized edema; E11.40 Type 2 diabetes mellitus with diabetic neuropathy, unspecified; E11.69 Type 2 diabetes mellitus with other specified complication; M86.372 Chronic multifocal osteomyelitis, left ankle and foot; E44.0 Moderate protein-calorie malnutrition; Z89.422 Acquired absence of other left toe(s); Z79.84 Long term (current) use of oral hypoglycemic drugs; Z86.718 Personal history of other venous thrombosis and embolism; Z86.711 Personal history of pulmonary embolism ==

== ENCOUNTER → 2019-09-23 | Outpatient (CLI) | payer OTHER ==
[~2019-09-23] MED LIST changes: +FENOFIBRATE160 MG PO; +LISINOPRIL20 MG PO; +METFORMIN HCL500 M3 PO; +METHADONE HCL 110 M1 PO; +TROKENDI XR50 MG PO
== END ==
LOC: HYPER 11:15
DX: T81.31XD Disruption of external operation (surgical) wound, not elsewhere classified, subsequent encounter (principal); E11.621 Type 2 diabetes mellitus with foot ulcer; L97.512 Non-pressure chronic ulcer of other part of right foot with fat layer exposed; L97.522 Non-pressure chronic ulcer of other part of left foot with fat layer exposed; L84 Corns and callosities; E11.40 Type 2 diabetes mellitus with diabetic neuropathy, unspecified; E11.69 Type 2 diabetes mellitus with other specified complication; M86.372 Chronic multifocal osteomyelitis, left ankle and foot; E44.0 Moderate protein-calorie malnutrition; R60.0 Localized edema; Z89.422 Acquired absence of other left toe(s); Z79.84 Long term (current) use of oral hypoglycemic drugs; Z86.711 Personal history of pulmonary embolism; Z86.718 Personal history of other venous thrombosis and embolism; Y83.8 Other surgical procedures as the cause of abnormal reaction of the patient, or of later complication, without mention of misadventure at the time of the procedure

== ENCOUNTER → 2019-10-07 | Outpatient (CLI) | payer OTHER | LOC: HYPER 14:29 | DX: T81.31XD Disruption of external operation (surgical) wound, not elsewhere classified, subsequent encounter (principal); E11.621 Type 2 diabetes mellitus with foot ulcer; L97.512 Non-pressure chronic ulcer of other part of right foot with fat layer exposed; L97.522 Non-pressure chronic ulcer of other part of left foot with fat layer exposed; L84 Corns and callosities; E11.69 Type 2 diabetes mellitus with other specified complication; M86.372 Chronic multifocal osteomyelitis, left ankle and foot; E11.40 Type 2 diabetes mellitus with diabetic neuropathy, unspecified; E44.0 Moderate protein-calorie malnutrition; R60.0 Localized edema; Z79.84 Long term (current) use of oral hypoglycemic drugs; Z89.422 Acquired absence of other left toe(s); Z86.711 Personal history of pulmonary embolism; Z86.718 Personal history of other venous thrombosis and embolism; Y83.8 Other surgical procedures as the cause of abnormal reaction of the patient, or of later complication, without mention of misadventure at the time of the procedure ==

== ENCOUNTER → 2019-11-10 | Outpatient (CLI) | payer OTHER | LOC: HYPER 10:53 | PROVIDERS: ATTEND Emergency Medicine Emergency Medical Services | DX: T81.31XD Disruption of external operation (surgical) wound, not elsewhere classified, subsequent encounter (principal); E11.621 Type 2 diabetes mellitus with foot ulcer; L97.512 Non-pressure chronic ulcer of other part of right foot with fat layer exposed; L84 Corns and callosities; R60.0 Localized edema; E11.40 Type 2 diabetes mellitus with diabetic neuropathy, unspecified; E11.69 Type 2 diabetes mellitus with other specified complication; M86.372 Chronic multifocal osteomyelitis, left ankle and foot; E44.0 Moderate protein-calorie malnutrition; Z79.84 Long term (current) use of oral hypoglycemic drugs; Z89.422 Acquired absence of other left toe(s); Z86.711 Personal history of pulmonary embolism; Z86.718 Personal history of other venous thrombosis and embolism; Y83.8 Other surgical procedures as the cause of abnormal reaction of the patient, or of later complication, without mention of misadventure at the time of the procedure ==

== ENCOUNTER → 2019-11-24 | Outpatient (CLI) | payer OTHER ==
[~2019-11-24] MED LIST changes: +FLOMAX0.4 MG PO; +ROCEPHIN 11 GM/1001 IV
== END ==
LOC: HYPER 11:54
PROVIDERS: ATTEND Emergency Medicine
DX: T81.31XD Disruption of external operation (surgical) wound, not elsewhere classified, subsequent encounter (principal); E11.621 Type 2 diabetes mellitus with foot ulcer; L97.512 Non-pressure chronic ulcer of other part of right foot with fat layer exposed; L84 Corns and callosities; R60.0 Localized edema; E11.40 Type 2 diabetes mellitus with diabetic neuropathy, unspecified; E11.69 Type 2 diabetes mellitus with other specified complication; M86.372 Chronic multifocal osteomyelitis, left ankle and foot; E44.0 Moderate protein-calorie malnutrition; Z79.84 Long term (current) use of oral hypoglycemic drugs; Z89.422 Acquired absence of other left toe(s); Z86.711 Personal history of pulmonary embolism; Z86.718 Personal history of other venous thrombosis and embolism; Y83.8 Other surgical procedures as the cause of abnormal reaction of the patient, or of later complication, without mention of misadventure at the time of the procedure

== ENCOUNTER → 2019-12-08 | Outpatient (CLI) | payer OTHER ==
[~2019-12-08] MED LIST changes: -FLOMAX0.4 MG PO; -ROCEPHIN 11 GM/1001 IV
== END ==
LOC: HYPER 09:46
PROVIDERS: ATTEND Emergency Medicine
DX: T81.31XD Disruption of external operation (surgical) wound, not elsewhere classified, subsequent encounter (principal); E11.621 Type 2 diabetes mellitus with foot ulcer; L97.512 Non-pressure chronic ulcer of other part of right foot with fat layer exposed; L84 Corns and callosities; R60.0 Localized edema; E11.69 Type 2 diabetes mellitus with other specified complication; M86.372 Chronic multifocal osteomyelitis, left ankle and foot; E11.40 Type 2 diabetes mellitus with diabetic neuropathy, unspecified; E44.0 Moderate protein-calorie malnutrition; E66.01 Morbid (severe) obesity due to excess calories; Z79.84 Long term (current) use of oral hypoglycemic drugs; Z86.711 Personal history of pulmonary embolism; Z86.718 Personal history of other venous thrombosis and embolism; Z68.42 Body mass index [BMI] 45.0-49.9, adult; Y83.8 Other surgical procedures as the cause of abnormal reaction of the patient, or of later complication, without mention of misadventure at the time of the procedure

== ENCOUNTER → 2019-12-22 | Outpatient (CLI) | payer OTHER | LOC: HYPER 14:32 | PROVIDERS: ATTEND Emergency Medicine Emergency Medical Services | DX: T81.31XD Disruption of external operation (surgical) wound, not elsewhere classified, subsequent encounter (principal); E11.621 Type 2 diabetes mellitus with foot ulcer; L97.512 Non-pressure chronic ulcer of other part of right foot with fat layer exposed; L84 Corns and callosities; R60.0 Localized edema; E11.69 Type 2 diabetes mellitus with other specified complication; M86.372 Chronic multifocal osteomyelitis, left ankle and foot; E11.40 Type 2 diabetes mellitus with diabetic neuropathy, unspecified; E44.0 Moderate protein-calorie malnutrition; E66.01 Morbid (severe) obesity due to excess calories; Z79.84 Long term (current) use of oral hypoglycemic drugs; Z86.711 Personal history of pulmonary embolism; Z86.718 Personal history of other venous thrombosis and embolism; Z68.42 Body mass index [BMI] 45.0-49.9, adult; Y83.8 Other surgical procedures as the cause of abnormal reaction of the patient, or of later complication, without mention of misadventure at the time of the procedure ==

== ENCOUNTER → 2019-12-27 | Outpatient (CLI) | payer OTHER | LOC: HYPER 10:54 | PROVIDERS: ATTEND Emergency Medicine | DX: T81.31XD Disruption of external operation (surgical) wound, not elsewhere classified, subsequent encounter (principal); E11.621 Type 2 diabetes mellitus with foot ulcer; L97.512 Non-pressure chronic ulcer of other part of right foot with fat layer exposed; L84 Corns and callosities; R60.0 Localized edema; E11.40 Type 2 diabetes mellitus with diabetic neuropathy, unspecified; E11.69 Type 2 diabetes mellitus with other specified complication; M86.372 Chronic multifocal osteomyelitis, left ankle and foot; E44.0 Moderate protein-calorie malnutrition; Z79.84 Long term (current) use of oral hypoglycemic drugs; Z89.422 Acquired absence of other left toe(s); Z86.718 Personal history of other venous thrombosis and embolism; Z86.711 Personal history of pulmonary embolism; Y83.8 Other surgical procedures as the cause of abnormal reaction of the patient, or of later complication, without mention of misadventure at the time of the procedure ==

== ENCOUNTER → 2019-12-31 | Outpatient (CLI) | payer OTHER | LOC: MRI 10:50 | PROVIDERS: ATTEND Emergency Medicine | DX: E11.621 Type 2 diabetes mellitus with foot ulcer (principal); L97.512 Non-pressure chronic ulcer of other part of right foot with fat layer exposed; T81.89XA Other complications of procedures, not elsewhere classified, initial encounter; T81.30XA Disruption of wound, unspecified, initial encounter; R60.0 Localized edema; M62.89 Other specified disorders of muscle; M86.8X7 Other osteomyelitis, ankle and foot ==

== ENCOUNTER → 2020-01-04 | Outpatient (CLI) | payer OTHER | LOC: HYPER 10:13 | PROVIDERS: ATTEND Emergency Medicine | DX: T81.89XD Other complications of procedures, not elsewhere classified, subsequent encounter (principal); E11.621 Type 2 diabetes mellitus with foot ulcer; L97.512 Non-pressure chronic ulcer of other part of right foot with fat layer exposed; E11.40 Type 2 diabetes mellitus with diabetic neuropathy, unspecified; E44.0 Moderate protein-calorie malnutrition; E11.69 Type 2 diabetes mellitus with other specified complication; M86.372 Chronic multifocal osteomyelitis, left ankle and foot; R60.0 Localized edema; L84 Corns and callosities; Z79.84 Long term (current) use of oral hypoglycemic drugs; Z86.14 Personal history of Methicillin resistant Staphylococcus aureus infection; Z86.711 Personal history of pulmonary embolism; Z86.718 Personal history of other venous thrombosis and embolism; Z79.82 Long term (current) use of aspirin; Z89.422 Acquired absence of other left toe(s); Y83.8 Other surgical procedures as the cause of abnormal reaction of the patient, or of later complication, without mention of misadventure at the time of the procedure ==

== ENCOUNTER 2020-01-06 19:50 | Inpatient (IN) | payer OTHER ==
[~2020-01-06] VITALS: Ht 182.9 cm; Wt 178.9 kg
[2020-01-06 19:51] VITALS: BP 120/93
[2020-01-06 20:21] LABS: EOSINOPHILS 0.9 % (0.0-3.0); HEMATOCRIT 32.1 % (42.0-52.0); HEMOGLOBIN 10.5 gm/dL (14.0-18.0); MCHC 32.6 g/dL (28.0-37.0)
[2020-01-06 20:23] LABS: ABSOLUTE NEUTROPHILS 14.2 thou/uL (1.4-8.2); BASOPHILS 0.7 % (0.0-2.0); LYMPHOCYTES 11.1 % (24.0-44.0); MCH 26.7 pg (26.0-34.0); MONOCYTES 6.4 % (1.0-8.0); PLATELET COUNT 385 thou/uL (150-400); POLYS 80.9 % (36.0-66.0); RBC 3.92 mil/uL (4.50-6.00); RDW 14.8 % (10.5-14.5); WBC 21.1 thou/uL (4.0-11.0)
--- NOTE | 2020-01-06 20:28 | NUR ---
This RN attempts 2 IVs. Unsuccessful. Primary RNVenancio notified
--- NOTE | 2020-01-06 20:28 | NUR ---
Report attempted to CARI Ellison. Nurse unable to take report and will call back
[2020-01-06 20:29] LABS: CALCIUM 8.9 mg/dL (8.5-10.1); CREATININE 2.9 mg/dL (0.7-1.3); POTASSIUM 5.6 mmol/L (3.5-5.1)
[2020-01-06 20:44] LABS: ALBUMIN 2.9 g/dL (3.4-5.0); DIRECT BILIRUBIN 0.1 mg/dL (<0.1-0.2); TOTAL BILIRUBIN 0.4 mg/dL (0.2-1.0); TOTAL PROTEIN 8.7 g/dL (6.4-8.2)
[2020-01-06 23:13] VITALS: BP 108/67
[2020-01-07] VITALS (7 sets, daily range): BP systolic 95–125; BP diastolic 54–87
--- NOTE | 2020-01-07 04:52 | NUR ---
PT ARRIVED TO UNIT APPROX 0030, ADMISSION AND ASSESSMENT COMPLETED. PT A&Ox4 BUT SLIGHTLY FORGETFUL/HAVING WANDERING THOUGHTS. WOUND PHOTO TAKEN OF NECROTIC RIGHT GREAT TOE. IVF AND ABX STARTED. HAVE GIVEN IV AND PO PAIN MEDS OVERNIGHT, OTHERWISE NPO IN CASE OF SURGERY TODAY. NO OTHER CONCERNS, WILL CONTINUE TO MONITOR.
[2020-01-07 06:25] LABS: CALCIUM 8.6 mg/dL (8.5-10.1)
[2020-01-07 06:28] LABS: POTASSIUM 5.9 mmol/L (3.5-5.1)
[2020-01-07 08:08] LABS: HEMATOCRIT 29.3 % (42.0-52.0); HEMOGLOBIN 9.7 gm/dL (14.0-18.0); MCH 27.1 pg (26.0-34.0); MCV 82.3 fL (80.0-100.0); RBC 3.56 mil/uL (4.50-6.00); RDW 14.6 % (10.5-14.5); WBC 8.7 thou/uL (4.0-11.0)
--- NOTE | 2020-01-07 08:53 | NUR ---
Assess due to RD consult received. Pt admit with osteomyelitis, toe wound. Has been here in past. Hx DM, CHF, PVD. Confused upon admit, possible toxic encephalopathy. Usually eats very well. BMI 50.5, extreme class III obesity. Wts usual 340-350's, this admit 360 vs 372 lb ?. A1C is pending. NPO for possible surgical intervention. Limited info in chart since pt newly admitted. Will place order for Alvin bid once diet advanced, and currently presents low nutrition risk.
--- NOTE | 2020-01-07 16:45 | EKG ---
[facility] [place] [address] ELECTROCARDIOGRAM REPORT Name: MILLIE MUNOZ Room #: 353-P ADM IN M.R.#: [id number] Admission: 01/06/20 Attend Phys: Luis Urrutia MD Discharge: Date of : 70 Report #: [id number] THIS REPORT FOR: cc: Flip Hickey James A. DO Lundgren, Craig H. MD [facility] ~ THIS REPORT FOR: //name// [facility] ED Test Date: 2020-01-06 Test Time: 19:54:46 Pat Name: MILLIE MUNOZ Department: Room: 353 P Gender: M Engagement Executive: BERNARDINO : 1970 Requested By: Luis Urrutia Order Number: [id number] MD: Dutch Montes Measurements Intervals [place] Rate: 108 P: 68 MS: 196 QRS: 23 QRSD: 103 T: 33 QT: 323 QTc: 433 Interpretive Statements Sinus tachycardia Baseline wander Compared to ECG 07/20/2019 16:57:50 ST and T wave abnormalities less pronounced Electronically Signed On 01-07-2020 16:45:22 CDT by Dutch Montes [email or web address] <ELECTRONICALLY SIGNED> By: Dutch Montes MD, [facility] 01/07/20 1645 53 53 Dutch Montes MD, [facility] /EPI
--- NOTE | 2020-01-07 18:22 | NUR ---
ASSUMED PATIENT CARE AT 0700. A/O X4. COVID PCR NEGATIVE. DR SORIA NOTIFIED SENT MRI RESULT 12/31/[address] SORIA. HE WANT A STAT MRI BEFORE TOMORROW SURGEY. CALLED [facility] FOR STAT MRI. VSS. AFEBRILE. WILL KEEP MONIYOR.
[2020-01-08 00:17] VITALS: BP 126/67
--- NOTE | 2020-01-08 02:04 | NUR ---
Pt transfereed from [facility] via w/c.Pt is a/ox4.Vss.has low grade fever.Denies chills.N/v.On RA w/o resp distress.NSR on monitor.Transfer to bed with standby assist.Right foot with dressing cdi.C/o pain of 9/10 to right foot.Pain meds given as per orders with partial relief.Antibiotic infusing as per orders.Oriented to rm and unit activities.Pt denies further concerns.NPO after midnoc for possible right foot amputation this am.Will cont to monitor per poc.
[2020-01-08 04:06] LABS: GLYCOHEMOGLOBIN (HGB A1C) 7.6 % (4.8-5.6)
[2020-01-08 05:08] VITALS: BP 112/78
[2020-01-08 05:43] LABS: HEMATOCRIT 29.4 % (42.0-52.0); HEMOGLOBIN 9.3 gm/dL (14.0-18.0); MCH 26.7 pg (26.0-34.0); MCHC 31.7 g/dL (28.0-37.0); MCV 84.3 fL (80.0-100.0); RBC 3.49 mil/uL (4.50-6.00); RDW 14.8 % (10.5-14.5); WBC 8.6 thou/uL (4.0-11.0)
[2020-01-08 05:59] LABS: CALCIUM 8.7 mg/dL (8.5-10.1); CREATININE 2.6 mg/dL (0.7-1.3)
[2020-01-08 06:06] LABS: POTASSIUM 4.8 mmol/L (3.5-5.1)
[2020-01-08 07:40] VITALS: BP 150/77
[2020-01-08 15:55] VITALS: BP 107/73
--- NOTE | 2020-01-08 18:32 | NUR ---
ASSUMED CARE PT SHIFT CHANGE. ASSESSMENTS CHARTED.MEDS GIVEN PER MAR. PT ALERT AND ORIENTED. VSS. BLOOD SUGAR 68 THIS AM. TREATED WITH IV DEXTROSE, BLOOD SUGAR STABLE. C/O PAIN RIGHT GREAT TOE, AMPUTATED THIS SHIFT. PT STABLE. RIGHT FOOT WRAPPED IN ORIGINAL SURGICAL DRESSING. PT DID NOT VOID BEFORE OR AFTER PROCEDURE. BLADDER SCANNED TO FIND >1350ML URINE. PHYSICIAN NOTIFIED. ORDERS RECEIVED FOR RAYMOND, PT NOW DRAINING URINE EFFECTIVELY WITH RAYMOND. PT UP SBA TOLERATING WELL. FAMILY FRIEND UPDATED ON POC. PT CURRENTLY RESTING IN BED DENIES NEEDS. CONTINUING TO MONITOR. WILL PASS ON REPORT TO LEANDRA ALCALA.
[2020-01-08 19:40] VITALS: BP 111/72
[2020-01-09 00:11] VITALS: BP 115/76
[2020-01-09 04:30] VITALS: BP 112/71
--- NOTE | 2020-01-09 06:05 | NUR ---
ASSUME CARE 1900. PT/VITALS STABLE. INTERMITTENT RIGHT FOOT PAIN. TOLERATES ACTIVITY WELL. ASSESSMENT CHARTED. PROGRESSING WELL WITH POC. PLAN IS INFECTION PREVENTION WITH ABX/MONITOR KIDNEY FUNCTION. WILL CONTINUE TO MONITOR AND FOLLOW WIHT POC
[2020-01-09 07:59] LABS: HEMATOCRIT 30.3 % (42.0-52.0); HEMOGLOBIN 9.7 gm/dL (14.0-18.0); MCH 26.8 pg (26.0-34.0); MCHC 32.1 g/dL (28.0-37.0); MCV 83.3 fL (80.0-100.0); RBC 3.64 mil/uL (4.50-6.00); RDW 14.6 % (10.5-14.5); WBC 6.2 thou/uL (4.0-11.0)
[2020-01-09 08:00] VITALS: BP 124/75
[2020-01-09 08:06] LABS: CALCIUM 8.5 mg/dL (8.5-10.1); POTASSIUM 4.9 mmol/L (3.5-5.1)
[2020-01-09 08:12] LABS: CREATININE 1.5 mg/dL (0.7-1.3)
[2020-01-09 16:00] VITALS: BP 133/75
--- NOTE | 2020-01-09 18:11 | NUR ---
ASSUMED CARE OF PT AT SHIFT CHANGE. ASSESSMENTS CHARTED. MEDS GIVEN PER JUL. PT A&OX4, PAIN D/T R GREAT TOE AMPUTATION TREATED WITH IV AND PO MEDS WITH PARTIAL RELIEF. SURGICAL DRESSING INTACT AND NOT REMOVED, WILL WAIT UNTIL SURGEON ROUNDS. ABX AND IVF CONTINUE TO INFUSE. RAYMOND IN PLACE D/T RETENTION. WILL CONTINUE TO MONITOR AND REPORT TO NOC NURSE.
[2020-01-09 20:10] VITALS: BP 113/63
[2020-01-10 05:44] LABS: HEMATOCRIT 30.6 % (42.0-52.0); HEMOGLOBIN 9.8 gm/dL (14.0-18.0); MCH 26.9 pg (26.0-34.0); MCHC 31.9 g/dL (28.0-37.0); MCV 84.2 fL (80.0-100.0); RBC 3.63 mil/uL (4.50-6.00); RDW 14.7 % (10.5-14.5); WBC 5.2 thou/uL (4.0-11.0)
[2020-01-10 05:56] VITALS: BP 130/91
[2020-01-10 06:09] LABS: CALCIUM 8.9 mg/dL (8.5-10.1); CREATININE 1.4 mg/dL (0.7-1.3); POTASSIUM 5.3 mmol/L (3.5-5.1)
--- NOTE | 2020-01-10 07:30 | NUR ---
PAIN FAIRLY CONTROLLED.MANDI TO IRINEO.RIGHT FOOT DRESSING C/D/I.MONITOR SHOWS SR.POC CONTINUED.
[2020-01-10 07:45] VITALS: BP 146/81
--- NOTE | 2020-01-10 14:08 | NUR ---
PT UP TO CHAIR, ABLE TO MOVE HIMSELF FROM BED TO CHAIR, RECLINED, FEET UP, ORTHO SHOW IN WINDOW LEDGE, PT AWARE OF PENDING DC MOST LIKELY TOMORROW, FEELS GOOD ABOUT HH COMING FOR WOUND CARE. FOOT EXAMINED AND REDRESSED BY SURGERY THIS AM.
[2020-01-10 16:05] VITALS: BP 133/61
--- NOTE | 2020-01-10 16:19 | NUR ---
met with patient who admits with gangrne right toe. Patient rec amputation of toe. [facility]. He has a walker if needed. He has hx of IV antibiotics and HH care. [facility] for infusion and [facility] for [facility] care. Rec order from DR Flores for infusion at home. PICC line to be placed. Patient aware and agreeable. Sent referral packet to [facility] to alert of dc home with home infusion. PCP Dr Mosquera.
[2020-01-10 20:00] VITALS: BP 147/77
[2020-01-11 03:10] VITALS: BP 145/86
--- NOTE | 2020-01-11 03:32 | NUR ---
assumed pt care at the change of shift, pt is awake, alert and orientedx4, sr on the mnonitor, assessment as charted, c/o pain of 8/10 on the right lower extremity, medicated prn as per orders with partial relief, iv fluids infusibng as ordered to the right forearm, mesa in place, adequate urine output, dressing to the right leg cdi, medications given as per mar, denies chest pain or sob, no acute distress noted, will continue to monitor
[2020-01-11 07:40] VITALS: BP 160/90
[2020-01-11 08:23] LABS: CALCIUM 8.9 mg/dL (8.5-10.1); POTASSIUM 4.8 mmol/L (3.5-5.1)
[2020-01-11] MEDS ORDERED: FLOMAX0.4 MG PO ×2 (08:43)
--- NOTE | 2020-01-11 13:37 | HC ---
[facility] [place] [address] CONSULTATION Name: MILLIE MUNOZ Room #: 206-P ADM IN M.R.#: [id number] Admission: 01/06/20 Attend Phys: Fransico Kaye MD Discharge: Date of : 70 Report #: [id number] THIS REPORT FOR: cc: Flip Hickey,Bryant Mabry MD ~ CC: Luis Hickey DATE OF SERVICE: 01/07/2020 WOUND CARE CONSULTATION PERSONAL PHYSICIAN: Ruperto. CHIEF COMPLAINT: Right toe wound with cellulitis. HISTORY OF PRESENT ILLNESS: This is a 49-year-old white male with a longstanding history of only moderately controlled diabetes who I have been following in the Wound Clinic for several weeks for chronic ulceration on his right great toe. The patient was nearly healed at one point in time several weeks ago and then due to job obligations, the patient went several weeks without being seen, stated he was on his feet most of those days with heavy work boots and had significant amount of sweating. He noted that his toe was having increased maceration and drainage as well, this past week started having an increased odor. I saw the patient 2 days ago in clinic. At that point in time, the patient was offered an admission because his MRI came back positive for osteomyelitis as well as culture was positive for Proteus vulgaris. The patient, however, refused admission that day because of more obligations that he had to perform, but said he would follow up with Dr. Flores and Dr. Goel as an outpatient. Both of these physicians were contacted and outpatient appointments were made. The patient did see Dr. Flores yesterday. At that time, Dr. Flores called me, said his foot was now cellulitic up to his ankle, which had not been 48 hours ago, and the patient was recommended hospitalization. The patient then stated he left Dr. Flores's office, started driving around, became very confused and his girlfriend actually talked to him and contacted EMS stating that he was confused and brought to the Emergency Department here at [facility] where he was admitted for sepsis and cellulitis of the right great toe. The patient this morning states he feels much better. Admits to the fact that he was confused yesterday and is agreeable to undergoing the amputation with Dr. Goel. The patient has no other associated wounds at this time. PAST MEDICAL HISTORY: Longstanding history of diabetes type 2, hypertension, hyperlipidemia, previous diabetic left great toe ulcer with underlying osteomyelitis and subsequent amputation, history of diastolic heart failure, previous DVT with bilateral pulmonary emboli and recurrent sepsis. The patient [facility] [address] [place] [address] CONSULTATION Name: MILLIE MUNOZ Room #: 206-P ADM IN M.R.#: [id number] Admission: 01/06/20 Attend Phys: Fransico Kaye MD Discharge: Date of : 70 Report #: [id number] also has chronic pain syndrome, which is being treated by the pain clinic. CURRENT MEDICATIONS: Multiple. I reviewed the patient's medication list. DRUG ALLERGIES: None. SOCIAL HISTORY: The patient does not smoke tobacco or drink alcohol. Lives independently. FAMILY HISTORY: Not pertinent to current medical condition. REVIEW OF SYSTEMS: CONSTITUTIONAL: The patient had chills in the past 24 hours. Denies chills in the past 24 hours, but does state that he has a low-grade fever. NEUROLOGIC: The patient complains of generalized weakness, but no isolated weakness in arms or legs. EYES: No complaints. ENT: No complaints. CARDIAC: The patient has chronic lower extremity edema. No chest pain or palpitation. RESPIRATORY: The patient denies shortness of breath, cough or wheezes. GASTROINTESTINAL: The patient denies nausea, vomiting or abdominal pain. GENITOURINARY: The patient denies urgency or frequency. MUSCULOSKELETAL: No complaints. SKIN: The patient has right great toe ulceration with subsequent cellulitis. PHYSICAL EXAMINATION: VITAL SIGNS: Temperature 36.8, pulse 77, respirations 18, BP 95/54. GENERAL: This is a pleasant white male who is in mild distress secondary to symptoms. HEENT: Normocephalic, atraumatic. Mucous membranes are dry. Pupils are round. Sclerae white. NECK: Supple, nontender. LUNGS: Clear. HEART: Regular. ABDOMEN: Obese, soft, nontender. EXTREMITIES: Evaluation of right lower extremity reveals a chronic ulcer on the plantar aspect of the right foot, which is now necrotic foul smelling drainage and exposed bone. There is increased erythema, warmth and some tenderness extending into the foot up to the ankle. The patient has 1+ dorsalis pedis and posterior tibial pulse. No other associated ulcerations are noted. NEUROLOGIC: Cranial nerves 2-12 grossly intact. Motor and sensory grossly intact. LABORATORY DATA: White count 8.7, hemoglobin 9.7, BUN 38, creatinine 3.0, albumin 2.9. C-reactive protein was 239.5. [address] [address] CONSULTATION Name: MILLIE MUNOZ Room #: 206-P ADM IN M.R.#: [id number] Admission: 01/06/20 Attend Phys: Fransico Kaye MD Discharge: Date of : 70 Report #: [id number] IMPRESSION: 1. Chronic ulceration, right great toe with underlying osteomyelitis, now with right foot cellulitis and sepsis. 2. Sepsis secondary to chronic ulceration. 3. Diabetes mellitus type 2. 4. Obesity. 5. Protein-calorie malnutrition, moderate, albumin 2.9. 6. Generalized debility. PLAN: Arterial Dopplers have been ordered to evaluate the patient's underlying arterial status. We will use Dakin's [id number] dressings and the patient still pending a surgical amputation. Dr. Goel spoke with me about taking the patient to surgery hopefully today pending his COVID-19 testing. IV antibiotics have been started. Dr. Flores is following the patient as well. We will maximize the patient's oral protein supplementation for healing. We will utilize physical and occupational therapy post-knee amputation to assist in the patient's strengthening. We will continue all other current medications and continue to follow the patient. <ELECTRONICALLY SIGNED> By: Bryant Lobo MD 01/11/20 1337 1313 1843 Bryant Lobo MD /nt
[2020-01-11] MEDS ORDERED: ROCEPHIN 11 GM/1001 IV ×2 (13:48)
[2020-01-11 14:31] VITALS: BP 145/86
--- NOTE | 2020-01-11 15:45 | NUR ---
VAT CONSULTED FOR A PICC FOR HOME ABX, A 4FRSLPICC PLACED IN [facility]. CXR REVEALED THE TIP AT THE CAJ. LINE RELEASED FOR USE
--- NOTE | 2020-01-11 15:56 | NUR ---
CAME INTO PT'S ROOM TO DISCONTNUE IV'S. PT STATED TO ME THAT HE PULLED THEM OUT IN THE BATHROOM. PT THEN PULLED GOWN SLEEVE UP WHICH HAD DRESSING OF PICC LINE LEFT UPPER ARM ATTACHED TO THE GOWN. THIS THEM PULLED OUT THE PISCC LINE ABOUT HALF WAY. CONTACT VASCULAR TEAL WHO WILL COME TO ASSESS. INSTRUCT PT NOT TO PULL ON LINES. WILL CONTINUE TO ASSESS.
--- NOTE | 2020-01-11 16:59 | NUR ---
VAT CONSULTED FOR A NEW PICC PT PULLED OUT PICC PLACED TODAY. WAS ABLE TO OTW EXCHANGE AND PLACE A NEW ONE. TIP AT THE [facility] PER CXR AND PT ABLE TO DC HOME WITH LINE
--- NOTE | 2020-01-11 17:58 | O ---
[facility] [place] [address] [place] [address] OPERATIVE REPORT Name: MILLIE MUNOZ Room #: 206-P [facility] IN M.R.#: [id number] Admission: 01/06/20 Attend Phys: Fransico Kaye MD Discharge: 01/11/20 Date of : 70 Report #: [id number] THIS REPORT FOR: cc: Flip Hickey,Krzysztof Gonzalez DPM ~ CC: Luis Hickey DATE OF SERVICE: 01/08/2020 PREOPERATIVE DIAGNOSES: Right diabetic foot ulcer with osteomyelitis, hallux. POSTOPERATIVE DIAGNOSES: Right diabetic foot ulcer with osteomyelitis, hallux. PROCEDURE: Right hallux amputation. ANESTHESIA: General with a local block consisting of 7 mL of 0.5% Marcaine. TOURNIQUET: None. DESCRIPTION OF PROCEDURE: The patient was transported to the operating room and placed on the operating table in supine position. General anesthesia was administered. Right lower extremity was prepped and draped in the usual sterile manner. Attention was directed to the right foot where a significant infection was noted with the entire plantar aspect of the hallux involved with necrotic tissue and soft tissue and a significant odor. Of note, I was able to review the MRI from 8 days ago and second one done to see if there is any further involvement along the first metatarsal. I was able to discuss with the radiologist, Dr. Eller, and we decided that the first metatarsal showed no signs of infection, in fact the soft tissue surrounding the first metatarsal looked very healthy as well, so there was a little chance of this being infected. ____ also with the findings intraoperatively. There was good healthy tissue surrounding the first metatarsal and there was adequate tissue to do a closure around the first metatarsal head. I did two elliptical incisions around this hallux and disarticulated and took deep tissue for aerobic, anaerobic, fungal of the hallux. Then, I cleaned out the tissue nicely around the area. There was purulence [facility] [address] [place] [address] OPERATIVE REPORT Name: ALEXANDERMILLIE Room #: 206-P DIS IN M.R.#: [id number] Admission: 01/06/20 Attend Phys: Fransico Kaye MD Discharge: 01/11/20 Date of : 70 Report #: [id number] noted in the first MPJ joint, which was somewhat concerning and also tracked somewhat plantar of the first metatarsal head, but after cleaning, it looked very good and healthy. In the end, it was questionable whether this was healed with distal right hallux amputation, but it looked good enough to give it a chance. So, I was able to close it with 2-0 nylon using simple suture technique. This was lavaged thoroughly before it was closed and the tissue bleeding was controlled with the Bovie. It was dressed with fluffs, Kerlix and outer Lionel bandage. The patient tolerated the procedure well and left the operating room in stable condition with neurovascular status and vital status intact. Plan is to watch for the next 2-4 days. If there are any signs of dehiscence of the incision line, then I will remove the sutures and go back and debride further and possibly do a partial first metatarsal resection or full metatarsal resection based on the findings in that second surgery. So, possibly second surgery will be determined in next 2-[address] Lobo and I both decided it was best to try to save the first metatarsal given the patient's age and activity level. ____ more complications if we did a first metatarsal and the patient understands and agrees with moving forward with this plan. <ELECTRONICALLY SIGNED> By: Krzysztof Gole DPM 01/11/20 1758 1119 1147 Krzysztof Goel DPM /nt
--- NOTE | 2020-01-11 17:58 | H ---
[facility] [place] [address] [address] HISTORY AND PHYSICAL Name: MILLIE MUNOZ Room #: 206-P [facility] IN M.R.#: [id number] Admission: 01/06/20 Attend Phys: Fransico Kaye MD Discharge: 01/11/20 Date of : 70 Report #: [id number] THIS REPORT FOR: cc: lFip Hickey,Krzysztof Gonzalez DPM ~ CC: Luis Hickey DATE OF SERVICE: 01/07/2020 INTRODUCTION: This is a 49-year-old white male who has been admitted to [facility] for a right diabetic foot ulcer with osteomyelitis. The patient was actually reporting having some loss of memory and extreme confusion is another reason why he came in the ER and also was febrile. The patient apparently has wound for quite some time for at least a month. He had been treated by Dr. Lobo where actually he contacted me previously and discussed possibility of a right hallux amputation. PAST MEDICAL HISTORY: Noted for hypertension, diabetes, hyperlipidemia and peripheral neuropathy. MEDICATIONS: In the chart. Cymbalta, Trulicity, Jardiance, Cardizem, Gabapentin, lisinopril 20 mg, Trokendi XR, ____, metformin and methadone for back pain as he has had significant chronic back pain for a while. ALLERGIES: No known drug allergies. SOCIAL HISTORY: No history of recent tobacco use. No history of alcohol use. No use of recreational drugs. PAST SURGICAL HISTORY: Previous surgery in his foot. FAMILY HISTORY: Noncontributory. REVIEW OF SYSTEMS: The patient is very anxious about this procedure and about his foot. He is worried about losing more foot than they will allow him not be able to ambulate as much. PHYSICAL EXAMINATION: GENERAL: Well-developed, well-nourished white male, morbidly obese. HEENT: PERRLA. NECK: Supple. No adenopathy. HEART: Regular rhythm and rate. [facility] [place] [place] [address] HISTORY AND PHYSICAL Name: MILLIE MUNOZ Room #: 206-[facility] IN M.R.#: [id number] Admission: 01/06/20 Attend Phys: Fransico Kaye MD Discharge: 01/11/20 Date of : 70 Report #: [id number] LUNGS: No respiratory distress. EXTREMITIES: Lower extremity shows he has a wound in the right foot that covers the entire plantar aspect of the foot. It is soft and there is some slough present and odor present and appears to be tracking down to the first MPJ joint. DIAGNOSTIC IMAGING: X-rays reveal involvement of the proximal and distal phalanx. MRI reveals osteo of the proximal and distal phalanx and possibly the first metatarsal head that was done 8 days ago. Arterial Doppler exam is being done, not finished yet. The patient's WBC is 21.0. Glucose is within normal limits, maybe slightly high. ASSESSMENT: Diabetic foot ulcer with osteomyelitis, possibly into the first metatarsal head. PLAN: To get an MRI for further evaluation. We will try to get them before the surgery. He was scheduled for 01/07/2020 at 11:00, but he had to get a COVID test so that was now pushed back to Friday at 10:00. The patient and I discussed the surgery in detail. He understands that possible complications such as chronic wound with delayed healing and possible loss of foot or more proximal aspect of the medial column. We may stage the procedure, so we can save as much of the medial column as possible. The patient understands that as well. I talked to Dr. Lobo about the case were in agreement on how to proceed. <ELECTRONICALLY SIGNED> By: Krzysztof Goel DPM 01/11/20 1758 1001 1101 Krzysztof Goel DPM /nt
--- NOTE | 2020-01-11 18:02 | NUR ---
Picc line placed rec discharge orders for home infusion ceftriaxone once a day. Rec dose at 9 am today. Faxed orders to [facility] and [facility]. Rec confirmation for start of care in am. medication to be delivered this evening to patients home. Patient pulled PICC out. Reinserted and imaging completed. Faxed updates to [facility] and [facility]. Patient dc home
--- NOTE | 2020-01-14 15:07 | PATH ---
[facility] [address] [place] [address] PATHOLOGY RPT PROCEDURE Name: MILLEI MUNOZ Room #: 206-P DIS IN M.R.#: [id number] Admission: 01/06/20 Date of : 70 Discharge: 01/11/20 Report #: [id number] Path Case #: [id number] [facility] Accession Number: [id number] . 01 Material submitted: . hallux - RIGHT BIG TOE. Modifiers: right . 01 Clinical history: . GANGRENE RIGHT BIG TOE, SEPSIS, UNSPECIFIED ORGANISM TOXIC ENCEPHALOPATHY . 02 Diagnosis: Right great toe, amputation: - Gangrenous necrosis with associated ulcer. - Acute osteomyelitis. - See comment. (MAP:[facility]; 01/13/2020) [facility] [place] 01/13/2020 1442 Local . 02 Comment: Acute osteomyelitis is present in the proximal portion of bone. Given this amputation appears to be a disarticulation, the acute osteomyelitis present in this bone is not felt to represent involvement of a resection margin. Clinical correlation is recommended. (MAP:[facility]; 01/13/2020) . 02 Electronically signed: . Fer Hubbard MD, Pathologist NPI- [id number] . 01 Gross description: . The specimen is received in formalin, labeled "Millie Munoz, right big toe". Received is an amputated digit measuring 7.2 x 4.2 x 4.0 cm in greatest dimensions. The bone margin is smooth and concave in appearance, consistent with disarticulation. The bone and soft tissue margins are inked black. The nail is absent. The epidermal surface displays a predominantly light rivera to gautam-black appearance with necrosis identified on the plantar aspect. A full-thickness longitudinal cross-section is submitted from proximal to distal aspects in cassettes A1 through A3, following decalcification. ([facility]; 01/12/2020) [facility] 01/12/2020 1034 Local . 02 Pathologist provided ICD-10: I96, L97.519, M86.171 . 02 CPT . 257841, [id number] [place] [address] PATHOLOGY RPT PROCEDURE Name: MILLIE MUNOZ Room #: 206-P DIS IN M.R.#: [id number] Admission: 01/06/20 Date of : 70 Discharge: 01/11/20 Report #: [id number] Path Case #: [id number] Specimen Comment: A courtesy copy of this report has been sent to [phone] Specimen Comment: [phone], Specimen Comment: Report sent to ,DR DE LA CRUZ / DR HEDRICK Performed at: [address], [place] [id number] MD Nahid Foreman MD Phone: [phone] Performed at: [address] [id number] MD Jelena Corrales MD Phone: [phone]
== END 2020-01-11 17:00 | disposition home health service (06) | DRG 853 ==
LOC: ER 19:50 → 2N 21:04 → 3W 21:04 → ER 01-07 00:05 → 3W 01-07 00:05 → 2N 01-08 00:05
PROVIDERS: Anesthesiology; Hospitalist; Nurse Practitioner; Nurse Practitioner Acute Care; ADMIT Hospitalist; ATTEND Hospitalist
PROC: 0JBQ0ZZ Excision of Right Foot Subcutaneous Tissue and Fascia, Open Approach (ICD-10-PCS; principal; 2020-01-06)
PROC: 02HV33Z Insertion of Infusion Device into Superior Vena Cava, Percutaneous Approach (ICD-10-PCS; 2020-01-11)
PROC: B548ZZA Ultrasonography of Superior Vena Cava, Guidance (ICD-10-PCS; 2020-01-11)
DX: A41.9 Sepsis, unspecified organism (principal); G92 Toxic encephalopathy; N17.0 Acute kidney failure with tubular necrosis; E11.52 Type 2 diabetes mellitus with diabetic peripheral angiopathy with gangrene; I96 Gangrene, not elsewhere classified; E87.1 Hypo-osmolality and hyponatremia; M86.8X7 Other osteomyelitis, ankle and foot; I50.32 Chronic diastolic (congestive) heart failure; E44.0 Moderate protein-calorie malnutrition; Z68.43 Body mass index [BMI] 50.0-59.9, adult; E11.65 Type 2 diabetes mellitus with hyperglycemia; E11.621 Type 2 diabetes mellitus with foot ulcer; L03.031 Cellulitis of right toe; E87.5 Hyperkalemia; I11.0 Hypertensive heart disease with heart failure; E11.69 Type 2 diabetes mellitus with other specified complication; E78.5 Hyperlipidemia, unspecified; G89.4 Chronic pain syndrome; Z20.828 Contact with and (suspected) exposure to other viral communicable diseases; Z79.01 Long term (current) use of anticoagulants; Z79.899 Other long term (current) drug therapy; Z79.84 Long term (current) use of oral hypoglycemic drugs; Z79.4 Long term (current) use of insulin; Z86.718 Personal history of other venous thrombosis and embolism; Z86.711 Personal history of pulmonary embolism
CPT/HCPCS: 10081; 10194; 10879; 50101; 50386; 50951; 57091; 62110; 62900; 70005

== ENCOUNTER → 2020-01-18 | Outpatient (CLI) | payer OTHER ==
[~2020-01-18] MED LIST changes: +FLOMAX0.4 MG PO; +ROCEPHIN 11 GM/1001 IV
== END ==
LOC: HYPER 10:31
PROVIDERS: ATTEND Emergency Medicine
DX: T87.81 Dehiscence of amputation stump (principal); E11.621 Type 2 diabetes mellitus with foot ulcer; L97.514 Non-pressure chronic ulcer of other part of right foot with necrosis of bone; L84 Corns and callosities; R60.0 Localized edema; E11.69 Type 2 diabetes mellitus with other specified complication; M86.372 Chronic multifocal osteomyelitis, left ankle and foot; E11.40 Type 2 diabetes mellitus with diabetic neuropathy, unspecified; E44.0 Moderate protein-calorie malnutrition; E66.01 Morbid (severe) obesity due to excess calories; Z79.84 Long term (current) use of oral hypoglycemic drugs; Z89.422 Acquired absence of other left toe(s); Z86.711 Personal history of pulmonary embolism; Z86.718 Personal history of other venous thrombosis and embolism; Z68.42 Body mass index [BMI] 45.0-49.9, adult; Y83.5 Amputation of limb(s) as the cause of abnormal reaction of the patient, or of later complication, without mention of misadventure at the time of the procedure

== ENCOUNTER → 2020-01-19 | Outpatient (CLI) | payer OTHER | LOC: HYPER 08:14 | PROVIDERS: ATTEND Emergency Medicine | DX: T81.31XD Disruption of external operation (surgical) wound, not elsewhere classified, subsequent encounter (principal); E11.621 Type 2 diabetes mellitus with foot ulcer; L97.514 Non-pressure chronic ulcer of other part of right foot with necrosis of bone; E11.69 Type 2 diabetes mellitus with other specified complication; M86.372 Chronic multifocal osteomyelitis, left ankle and foot; R60.0 Localized edema; E44.0 Moderate protein-calorie malnutrition; E11.40 Type 2 diabetes mellitus with diabetic neuropathy, unspecified; Z79.84 Long term (current) use of oral hypoglycemic drugs; Z89.422 Acquired absence of other left toe(s); Z86.711 Personal history of pulmonary embolism; Z86.718 Personal history of other venous thrombosis and embolism; Y83.8 Other surgical procedures as the cause of abnormal reaction of the patient, or of later complication, without mention of misadventure at the time of the procedure ==

== ENCOUNTER → 2020-01-20 | Outpatient (CLI) | payer OTHER | LOC: HYPER 09:52 | PROVIDERS: ATTEND Emergency Medicine | DX: T87.81 Dehiscence of amputation stump (principal); E11.621 Type 2 diabetes mellitus with foot ulcer; L97.514 Non-pressure chronic ulcer of other part of right foot with necrosis of bone; E11.69 Type 2 diabetes mellitus with other specified complication; M86.672 Other chronic osteomyelitis, left ankle and foot; R60.0 Localized edema; E11.40 Type 2 diabetes mellitus with diabetic neuropathy, unspecified; E44.0 Moderate protein-calorie malnutrition; Z79.84 Long term (current) use of oral hypoglycemic drugs; Z68.42 Body mass index [BMI] 45.0-49.9, adult; Z86.14 Personal history of Methicillin resistant Staphylococcus aureus infection; Z86.718 Personal history of other venous thrombosis and embolism; Z86.711 Personal history of pulmonary embolism; Y83.5 Amputation of limb(s) as the cause of abnormal reaction of the patient, or of later complication, without mention of misadventure at the time of the procedure ==

== ENCOUNTER → 2020-01-21 | Outpatient (CLI) | payer OTHER | LOC: HYPER 09:48 | PROVIDERS: ATTEND Emergency Medicine | DX: T87.81 Dehiscence of amputation stump (principal); E11.621 Type 2 diabetes mellitus with foot ulcer; L97.514 Non-pressure chronic ulcer of other part of right foot with necrosis of bone; E11.69 Type 2 diabetes mellitus with other specified complication; M86.372 Chronic multifocal osteomyelitis, left ankle and foot; E11.40 Type 2 diabetes mellitus with diabetic neuropathy, unspecified; E44.0 Moderate protein-calorie malnutrition; R60.0 Localized edema; Z86.14 Personal history of Methicillin resistant Staphylococcus aureus infection; Z79.84 Long term (current) use of oral hypoglycemic drugs; Z86.711 Personal history of pulmonary embolism; Z86.718 Personal history of other venous thrombosis and embolism; Z68.42 Body mass index [BMI] 45.0-49.9, adult; Z79.82 Long term (current) use of aspirin; Y83.5 Amputation of limb(s) as the cause of abnormal reaction of the patient, or of later complication, without mention of misadventure at the time of the procedure ==

== ENCOUNTER → 2020-01-24 | Outpatient (CLI) | payer OTHER | LOC: HYPER 08:05 | PROVIDERS: ATTEND Emergency Medicine Emergency Medical Services | DX: T81.31XD Disruption of external operation (surgical) wound, not elsewhere classified, subsequent encounter (principal); E11.621 Type 2 diabetes mellitus with foot ulcer; L97.514 Non-pressure chronic ulcer of other part of right foot with necrosis of bone; R60.0 Localized edema; E11.69 Type 2 diabetes mellitus with other specified complication; M86.372 Chronic multifocal osteomyelitis, left ankle and foot; E11.40 Type 2 diabetes mellitus with diabetic neuropathy, unspecified; E44.0 Moderate protein-calorie malnutrition; Z79.84 Long term (current) use of oral hypoglycemic drugs; Z89.422 Acquired absence of other left toe(s); Z86.711 Personal history of pulmonary embolism; Z86.718 Personal history of other venous thrombosis and embolism; Y83.8 Other surgical procedures as the cause of abnormal reaction of the patient, or of later complication, without mention of misadventure at the time of the procedure ==

== ENCOUNTER → 2020-01-25 | Outpatient (CLI) | payer OTHER | LOC: HYPER 09:55 | PROVIDERS: ATTEND Specialist | DX: T81.31XD Disruption of external operation (surgical) wound, not elsewhere classified, subsequent encounter (principal); E11.621 Type 2 diabetes mellitus with foot ulcer; L97.514 Non-pressure chronic ulcer of other part of right foot with necrosis of bone; E11.69 Type 2 diabetes mellitus with other specified complication; M86.372 Chronic multifocal osteomyelitis, left ankle and foot; E11.40 Type 2 diabetes mellitus with diabetic neuropathy, unspecified; R60.0 Localized edema; E44.0 Moderate protein-calorie malnutrition; Z79.84 Long term (current) use of oral hypoglycemic drugs; Z89.422 Acquired absence of other left toe(s); Z86.711 Personal history of pulmonary embolism; Z86.718 Personal history of other venous thrombosis and embolism; Y83.8 Other surgical procedures as the cause of abnormal reaction of the patient, or of later complication, without mention of misadventure at the time of the procedure ==

== ENCOUNTER → 2020-01-26 | Outpatient (CLI) | payer OTHER | LOC: HYPER 09:06 | PROVIDERS: ATTEND Emergency Medicine | DX: T81.31XD Disruption of external operation (surgical) wound, not elsewhere classified, subsequent encounter (principal); E11.621 Type 2 diabetes mellitus with foot ulcer; L97.514 Non-pressure chronic ulcer of other part of right foot with necrosis of bone; R60.0 Localized edema; E11.69 Type 2 diabetes mellitus with other specified complication; M86.372 Chronic multifocal osteomyelitis, left ankle and foot; E11.40 Type 2 diabetes mellitus with diabetic neuropathy, unspecified; E44.0 Moderate protein-calorie malnutrition; Z79.84 Long term (current) use of oral hypoglycemic drugs; Z89.422 Acquired absence of other left toe(s); Z86.711 Personal history of pulmonary embolism; Z86.718 Personal history of other venous thrombosis and embolism; Z89.411 Acquired absence of right great toe; Y83.8 Other surgical procedures as the cause of abnormal reaction of the patient, or of later complication, without mention of misadventure at the time of the procedure ==

== ENCOUNTER → 2020-01-27 | Outpatient (CLI) | payer OTHER | LOC: HYPER 08:06 | PROVIDERS: ATTEND Emergency Medicine | DX: T81.31XD Disruption of external operation (surgical) wound, not elsewhere classified, subsequent encounter (principal); E11.621 Type 2 diabetes mellitus with foot ulcer; L97.514 Non-pressure chronic ulcer of other part of right foot with necrosis of bone; R60.0 Localized edema; E11.69 Type 2 diabetes mellitus with other specified complication; M86.372 Chronic multifocal osteomyelitis, left ankle and foot; E11.40 Type 2 diabetes mellitus with diabetic neuropathy, unspecified; E44.0 Moderate protein-calorie malnutrition; Z79.84 Long term (current) use of oral hypoglycemic drugs; Z89.422 Acquired absence of other left toe(s); Z86.711 Personal history of pulmonary embolism; Z86.718 Personal history of other venous thrombosis and embolism; Z89.411 Acquired absence of right great toe; Y83.8 Other surgical procedures as the cause of abnormal reaction of the patient, or of later complication, without mention of misadventure at the time of the procedure ==

== ENCOUNTER → 2020-01-31 | Outpatient (CLI) | payer OTHER | LOC: HYPER 08:00 | PROVIDERS: ATTEND Emergency Medicine Emergency Medical Services | DX: T87.81 Dehiscence of amputation stump (principal); E11.621 Type 2 diabetes mellitus with foot ulcer; L97.514 Non-pressure chronic ulcer of other part of right foot with necrosis of bone; E11.69 Type 2 diabetes mellitus with other specified complication; M86.372 Chronic multifocal osteomyelitis, left ankle and foot; R60.0 Localized edema; E11.40 Type 2 diabetes mellitus with diabetic neuropathy, unspecified; E66.01 Morbid (severe) obesity due to excess calories; E44.0 Moderate protein-calorie malnutrition; Z79.84 Long term (current) use of oral hypoglycemic drugs; Z89.422 Acquired absence of other left toe(s); Z86.711 Personal history of pulmonary embolism; Z86.718 Personal history of other venous thrombosis and embolism; Z68.42 Body mass index [BMI] 45.0-49.9, adult; Y83.5 Amputation of limb(s) as the cause of abnormal reaction of the patient, or of later complication, without mention of misadventure at the time of the procedure ==

== ENCOUNTER → 2020-02-02 | Outpatient (CLI) | payer OTHER | LOC: SJCVCIMAG 09:07 | PROVIDERS: ATTEND Emergency Medicine | DX: I70.8 Atherosclerosis of other arteries (principal); I73.9 Peripheral vascular disease, unspecified; L97.818 Non-pressure chronic ulcer of other part of right lower leg with other specified severity; L97.828 Non-pressure chronic ulcer of other part of left lower leg with other specified severity ==

== ENCOUNTER → 2020-02-02 | Outpatient (CLI) | payer OTHER | LOC: HYPER 08:44 | PROVIDERS: ATTEND Emergency Medicine | DX: T87.81 Dehiscence of amputation stump (principal); E11.621 Type 2 diabetes mellitus with foot ulcer; L97.514 Non-pressure chronic ulcer of other part of right foot with necrosis of bone; R60.0 Localized edema; E11.69 Type 2 diabetes mellitus with other specified complication; M86.372 Chronic multifocal osteomyelitis, left ankle and foot; E11.40 Type 2 diabetes mellitus with diabetic neuropathy, unspecified; E66.01 Morbid (severe) obesity due to excess calories; E44.0 Moderate protein-calorie malnutrition; Z79.84 Long term (current) use of oral hypoglycemic drugs; Z89.422 Acquired absence of other left toe(s); Z86.711 Personal history of pulmonary embolism; Z86.718 Personal history of other venous thrombosis and embolism; Z68.42 Body mass index [BMI] 45.0-49.9, adult; Y83.5 Amputation of limb(s) as the cause of abnormal reaction of the patient, or of later complication, without mention of misadventure at the time of the procedure ==

== ENCOUNTER → 2020-02-03 | Outpatient (CLI) | payer OTHER | LOC: HYPER 14:24 | PROVIDERS: ATTEND Emergency Medicine | DX: T87.81 Dehiscence of amputation stump (principal); E11.621 Type 2 diabetes mellitus with foot ulcer; L97.514 Non-pressure chronic ulcer of other part of right foot with necrosis of bone; R60.0 Localized edema; E11.69 Type 2 diabetes mellitus with other specified complication; M86.372 Chronic multifocal osteomyelitis, left ankle and foot; E11.40 Type 2 diabetes mellitus with diabetic neuropathy, unspecified; E66.01 Morbid (severe) obesity due to excess calories; E44.0 Moderate protein-calorie malnutrition; Z79.84 Long term (current) use of oral hypoglycemic drugs; Z89.422 Acquired absence of other left toe(s); Z86.711 Personal history of pulmonary embolism; Z86.718 Personal history of other venous thrombosis and embolism; Z68.42 Body mass index [BMI] 45.0-49.9, adult; Y83.5 Amputation of limb(s) as the cause of abnormal reaction of the patient, or of later complication, without mention of misadventure at the time of the procedure ==

== ENCOUNTER → 2020-02-04 | Outpatient (CLI) | payer OTHER | LOC: HYPER 10:46 | PROVIDERS: ATTEND Emergency Medicine Emergency Medical Services | DX: T81.31XD Disruption of external operation (surgical) wound, not elsewhere classified, subsequent encounter (principal); E11.621 Type 2 diabetes mellitus with foot ulcer; L97.514 Non-pressure chronic ulcer of other part of right foot with necrosis of bone; E11.69 Type 2 diabetes mellitus with other specified complication; M86.372 Chronic multifocal osteomyelitis, left ankle and foot; E11.40 Type 2 diabetes mellitus with diabetic neuropathy, unspecified; E44.0 Moderate protein-calorie malnutrition; Z79.84 Long term (current) use of oral hypoglycemic drugs; Z68.42 Body mass index [BMI] 45.0-49.9, adult; Z86.14 Personal history of Methicillin resistant Staphylococcus aureus infection; Z86.711 Personal history of pulmonary embolism; Z86.718 Personal history of other venous thrombosis and embolism; Z89.422 Acquired absence of other left toe(s); Z79.82 Long term (current) use of aspirin; Y83.8 Other surgical procedures as the cause of abnormal reaction of the patient, or of later complication, without mention of misadventure at the time of the procedure ==

== ENCOUNTER → 2020-02-07 | Outpatient (CLI) | payer OTHER | LOC: HYPER 08:35 | PROVIDERS: ATTEND Emergency Medicine Emergency Medical Services | DX: T81.31XD Disruption of external operation (surgical) wound, not elsewhere classified, subsequent encounter (principal); E11.621 Type 2 diabetes mellitus with foot ulcer; L97.514 Non-pressure chronic ulcer of other part of right foot with necrosis of bone; E11.69 Type 2 diabetes mellitus with other specified complication; M86.372 Chronic multifocal osteomyelitis, left ankle and foot; R60.0 Localized edema; E11.40 Type 2 diabetes mellitus with diabetic neuropathy, unspecified; E44.0 Moderate protein-calorie malnutrition; Z79.84 Long term (current) use of oral hypoglycemic drugs; Z89.422 Acquired absence of other left toe(s); Z86.711 Personal history of pulmonary embolism; Z86.718 Personal history of other venous thrombosis and embolism; Y83.8 Other surgical procedures as the cause of abnormal reaction of the patient, or of later complication, without mention of misadventure at the time of the procedure ==

== ENCOUNTER → 2020-02-08 | Outpatient (CLI) | payer OTHER | LOC: HYPER 08:21 | PROVIDERS: ATTEND Specialist | DX: T81.31XD Disruption of external operation (surgical) wound, not elsewhere classified, subsequent encounter (principal); E11.621 Type 2 diabetes mellitus with foot ulcer; L97.514 Non-pressure chronic ulcer of other part of right foot with necrosis of bone; E11.69 Type 2 diabetes mellitus with other specified complication; M86.372 Chronic multifocal osteomyelitis, left ankle and foot; R60.0 Localized edema; E11.40 Type 2 diabetes mellitus with diabetic neuropathy, unspecified; E44.0 Moderate protein-calorie malnutrition; Z79.84 Long term (current) use of oral hypoglycemic drugs; Z68.42 Body mass index [BMI] 45.0-49.9, adult; Z79.82 Long term (current) use of aspirin; Z86.14 Personal history of Methicillin resistant Staphylococcus aureus infection; Z86.711 Personal history of pulmonary embolism; Z86.718 Personal history of other venous thrombosis and embolism; Y83.8 Other surgical procedures as the cause of abnormal reaction of the patient, or of later complication, without mention of misadventure at the time of the procedure ==

== ENCOUNTER → 2020-02-09 | Outpatient (CLI) | payer OTHER | LOC: HYPER 08:00 | PROVIDERS: ATTEND Emergency Medicine | DX: T81.31XD Disruption of external operation (surgical) wound, not elsewhere classified, subsequent encounter (principal); E11.621 Type 2 diabetes mellitus with foot ulcer; L97.514 Non-pressure chronic ulcer of other part of right foot with necrosis of bone; E11.69 Type 2 diabetes mellitus with other specified complication; M86.372 Chronic multifocal osteomyelitis, left ankle and foot; R60.0 Localized edema; E11.40 Type 2 diabetes mellitus with diabetic neuropathy, unspecified; E44.0 Moderate protein-calorie malnutrition; Z79.84 Long term (current) use of oral hypoglycemic drugs; Z68.42 Body mass index [BMI] 45.0-49.9, adult; Z79.82 Long term (current) use of aspirin; Z86.14 Personal history of Methicillin resistant Staphylococcus aureus infection; Z86.711 Personal history of pulmonary embolism; Z86.718 Personal history of other venous thrombosis and embolism; Y83.8 Other surgical procedures as the cause of abnormal reaction of the patient, or of later complication, without mention of misadventure at the time of the procedure ==

== ENCOUNTER → 2020-02-10 | Outpatient (CLI) | payer OTHER | LOC: HYPER 08:09 | PROVIDERS: ATTEND Emergency Medicine | DX: T81.31XD Disruption of external operation (surgical) wound, not elsewhere classified, subsequent encounter (principal); E11.621 Type 2 diabetes mellitus with foot ulcer; L97.514 Non-pressure chronic ulcer of other part of right foot with necrosis of bone; E11.69 Type 2 diabetes mellitus with other specified complication; M86.372 Chronic multifocal osteomyelitis, left ankle and foot; R60.0 Localized edema; E11.40 Type 2 diabetes mellitus with diabetic neuropathy, unspecified; E44.0 Moderate protein-calorie malnutrition; Z79.84 Long term (current) use of oral hypoglycemic drugs; Z68.42 Body mass index [BMI] 45.0-49.9, adult; Z86.14 Personal history of Methicillin resistant Staphylococcus aureus infection; Z86.711 Personal history of pulmonary embolism; Z86.718 Personal history of other venous thrombosis and embolism; Y83.8 Other surgical procedures as the cause of abnormal reaction of the patient, or of later complication, without mention of misadventure at the time of the procedure ==

== ENCOUNTER → 2020-02-11 | Outpatient (CLI) | payer OTHER | LOC: HYPER 08:33 | PROVIDERS: ATTEND Emergency Medicine | DX: T81.31XD Disruption of external operation (surgical) wound, not elsewhere classified, subsequent encounter (principal); E11.621 Type 2 diabetes mellitus with foot ulcer; L97.514 Non-pressure chronic ulcer of other part of right foot with necrosis of bone; E11.69 Type 2 diabetes mellitus with other specified complication; M86.372 Chronic multifocal osteomyelitis, left ankle and foot; R60.0 Localized edema; E11.40 Type 2 diabetes mellitus with diabetic neuropathy, unspecified; E44.0 Moderate protein-calorie malnutrition; Z79.84 Long term (current) use of oral hypoglycemic drugs; Z68.42 Body mass index [BMI] 45.0-49.9, adult; Z86.14 Personal history of Methicillin resistant Staphylococcus aureus infection; Z86.711 Personal history of pulmonary embolism; Z86.718 Personal history of other venous thrombosis and embolism; Y83.8 Other surgical procedures as the cause of abnormal reaction of the patient, or of later complication, without mention of misadventure at the time of the procedure ==

== ENCOUNTER → 2020-02-14 | Outpatient (CLI) | payer OTHER | LOC: HYPER 09:10 | PROVIDERS: ATTEND Emergency Medicine Emergency Medical Services | DX: T87.81 Dehiscence of amputation stump (principal); E11.621 Type 2 diabetes mellitus with foot ulcer; L97.514 Non-pressure chronic ulcer of other part of right foot with necrosis of bone; E11.69 Type 2 diabetes mellitus with other specified complication; M86.372 Chronic multifocal osteomyelitis, left ankle and foot; E11.40 Type 2 diabetes mellitus with diabetic neuropathy, unspecified; E44.0 Moderate protein-calorie malnutrition; Z68.42 Body mass index [BMI] 45.0-49.9, adult; Z86.14 Personal history of Methicillin resistant Staphylococcus aureus infection; Z86.711 Personal history of pulmonary embolism; Z86.718 Personal history of other venous thrombosis and embolism; Z79.84 Long term (current) use of oral hypoglycemic drugs; Z79.82 Long term (current) use of aspirin; Z89.422 Acquired absence of other left toe(s); Y83.5 Amputation of limb(s) as the cause of abnormal reaction of the patient, or of later complication, without mention of misadventure at the time of the procedure ==

== ENCOUNTER → 2020-02-15 | Outpatient (CLI) | payer OTHER | LOC: HYPER 09:38 | PROVIDERS: ATTEND Specialist | DX: T81.31XD Disruption of external operation (surgical) wound, not elsewhere classified, subsequent encounter (principal); E11.621 Type 2 diabetes mellitus with foot ulcer; L97.514 Non-pressure chronic ulcer of other part of right foot with necrosis of bone; E11.69 Type 2 diabetes mellitus with other specified complication; M86.372 Chronic multifocal osteomyelitis, left ankle and foot; E11.40 Type 2 diabetes mellitus with diabetic neuropathy, unspecified; E44.0 Moderate protein-calorie malnutrition; Z68.42 Body mass index [BMI] 45.0-49.9, adult; Z86.14 Personal history of Methicillin resistant Staphylococcus aureus infection; Z86.711 Personal history of pulmonary embolism; Z86.718 Personal history of other venous thrombosis and embolism; Z79.84 Long term (current) use of oral hypoglycemic drugs; Z79.82 Long term (current) use of aspirin; Z89.422 Acquired absence of other left toe(s); Y83.8 Other surgical procedures as the cause of abnormal reaction of the patient, or of later complication, without mention of misadventure at the time of the procedure ==

== ENCOUNTER → 2020-02-16 | Outpatient (CLI) | payer OTHER | LOC: HYPER 08:09 | PROVIDERS: ATTEND Emergency Medicine | DX: T81.31XD Disruption of external operation (surgical) wound, not elsewhere classified, subsequent encounter (principal); E11.621 Type 2 diabetes mellitus with foot ulcer; L97.514 Non-pressure chronic ulcer of other part of right foot with necrosis of bone; E11.69 Type 2 diabetes mellitus with other specified complication; M86.372 Chronic multifocal osteomyelitis, left ankle and foot; E11.40 Type 2 diabetes mellitus with diabetic neuropathy, unspecified; E44.0 Moderate protein-calorie malnutrition; Z68.42 Body mass index [BMI] 45.0-49.9, adult; Z86.14 Personal history of Methicillin resistant Staphylococcus aureus infection; Z86.711 Personal history of pulmonary embolism; Z86.718 Personal history of other venous thrombosis and embolism; Z79.84 Long term (current) use of oral hypoglycemic drugs; Z79.82 Long term (current) use of aspirin; Z89.422 Acquired absence of other left toe(s); Y83.8 Other surgical procedures as the cause of abnormal reaction of the patient, or of later complication, without mention of misadventure at the time of the procedure ==

== ENCOUNTER → 2020-02-17 | Outpatient (CLI) | payer OTHER | LOC: HYPER 08:08 | PROVIDERS: ATTEND Emergency Medicine | DX: T81.31XD Disruption of external operation (surgical) wound, not elsewhere classified, subsequent encounter (principal); E11.621 Type 2 diabetes mellitus with foot ulcer; L97.514 Non-pressure chronic ulcer of other part of right foot with necrosis of bone; E11.69 Type 2 diabetes mellitus with other specified complication; M86.372 Chronic multifocal osteomyelitis, left ankle and foot; R60.0 Localized edema; E11.40 Type 2 diabetes mellitus with diabetic neuropathy, unspecified; E44.0 Moderate protein-calorie malnutrition; Z79.84 Long term (current) use of oral hypoglycemic drugs; Z89.422 Acquired absence of other left toe(s); Z86.711 Personal history of pulmonary embolism; Z86.718 Personal history of other venous thrombosis and embolism; Y83.8 Other surgical procedures as the cause of abnormal reaction of the patient, or of later complication, without mention of misadventure at the time of the procedure ==

== ENCOUNTER → 2020-02-18 | Outpatient (CLI) | payer OTHER | LOC: HYPER 08:09 | PROVIDERS: ATTEND Emergency Medicine Emergency Medical Services | DX: T87.81 Dehiscence of amputation stump (principal); E11.621 Type 2 diabetes mellitus with foot ulcer; L97.514 Non-pressure chronic ulcer of other part of right foot with necrosis of bone; E11.69 Type 2 diabetes mellitus with other specified complication; M86.372 Chronic multifocal osteomyelitis, left ankle and foot; E11.40 Type 2 diabetes mellitus with diabetic neuropathy, unspecified; E44.0 Moderate protein-calorie malnutrition; Z79.84 Long term (current) use of oral hypoglycemic drugs; Z68.42 Body mass index [BMI] 45.0-49.9, adult; Z86.14 Personal history of Methicillin resistant Staphylococcus aureus infection; Z86.718 Personal history of other venous thrombosis and embolism; Z79.82 Long term (current) use of aspirin; Y83.5 Amputation of limb(s) as the cause of abnormal reaction of the patient, or of later complication, without mention of misadventure at the time of the procedure ==

== ENCOUNTER → 2020-02-21 | Outpatient (CLI) | payer OTHER | LOC: HYPER 09:11 | PROVIDERS: ATTEND Emergency Medicine Emergency Medical Services | DX: T87.81 Dehiscence of amputation stump (principal); E11.621 Type 2 diabetes mellitus with foot ulcer; L97.514 Non-pressure chronic ulcer of other part of right foot with necrosis of bone; E11.69 Type 2 diabetes mellitus with other specified complication; M86.372 Chronic multifocal osteomyelitis, left ankle and foot; E11.40 Type 2 diabetes mellitus with diabetic neuropathy, unspecified; R60.0 Localized edema; E44.0 Moderate protein-calorie malnutrition; Z68.42 Body mass index [BMI] 45.0-49.9, adult; Z86.14 Personal history of Methicillin resistant Staphylococcus aureus infection; Z86.711 Personal history of pulmonary embolism; Z86.718 Personal history of other venous thrombosis and embolism; Z79.84 Long term (current) use of oral hypoglycemic drugs; Z79.82 Long term (current) use of aspirin; Y83.5 Amputation of limb(s) as the cause of abnormal reaction of the patient, or of later complication, without mention of misadventure at the time of the procedure ==

== ENCOUNTER → 2020-02-22 | Outpatient (CLI) | payer OTHER | LOC: HYPER 10:54 | PROVIDERS: ATTEND Specialist | DX: T87.81 Dehiscence of amputation stump (principal); E11.621 Type 2 diabetes mellitus with foot ulcer; L97.514 Non-pressure chronic ulcer of other part of right foot with necrosis of bone; E11.69 Type 2 diabetes mellitus with other specified complication; M86.372 Chronic multifocal osteomyelitis, left ankle and foot; E11.40 Type 2 diabetes mellitus with diabetic neuropathy, unspecified; R60.0 Localized edema; E44.0 Moderate protein-calorie malnutrition; Z86.14 Personal history of Methicillin resistant Staphylococcus aureus infection; Z68.42 Body mass index [BMI] 45.0-49.9, adult; Z86.711 Personal history of pulmonary embolism; Z86.718 Personal history of other venous thrombosis and embolism; Z79.84 Long term (current) use of oral hypoglycemic drugs; Z79.82 Long term (current) use of aspirin; Z89.422 Acquired absence of other left toe(s); Y83.5 Amputation of limb(s) as the cause of abnormal reaction of the patient, or of later complication, without mention of misadventure at the time of the procedure ==

== ENCOUNTER → 2020-02-23 | Outpatient (CLI) | payer OTHER | LOC: HYPER 09:16 | PROVIDERS: ATTEND Emergency Medicine | DX: T87.81 Dehiscence of amputation stump (principal); E11.621 Type 2 diabetes mellitus with foot ulcer; L97.521 Non-pressure chronic ulcer of other part of left foot limited to breakdown of skin; L97.514 Non-pressure chronic ulcer of other part of right foot with necrosis of bone; R60.0 Localized edema; E11.69 Type 2 diabetes mellitus with other specified complication; M86.372 Chronic multifocal osteomyelitis, left ankle and foot; E11.40 Type 2 diabetes mellitus with diabetic neuropathy, unspecified; E44.0 Moderate protein-calorie malnutrition; Z79.84 Long term (current) use of oral hypoglycemic drugs; Z86.711 Personal history of pulmonary embolism; Z86.718 Personal history of other venous thrombosis and embolism; Y83.5 Amputation of limb(s) as the cause of abnormal reaction of the patient, or of later complication, without mention of misadventure at the time of the procedure ==

== ENCOUNTER → 2020-02-24 | Outpatient (CLI) | payer OTHER | LOC: HYPER 15:13 | PROVIDERS: ATTEND Emergency Medicine | DX: T87.81 Dehiscence of amputation stump (principal); E11.621 Type 2 diabetes mellitus with foot ulcer; L97.521 Non-pressure chronic ulcer of other part of left foot limited to breakdown of skin; L97.514 Non-pressure chronic ulcer of other part of right foot with necrosis of bone; R60.0 Localized edema; E11.69 Type 2 diabetes mellitus with other specified complication; M86.372 Chronic multifocal osteomyelitis, left ankle and foot; E11.40 Type 2 diabetes mellitus with diabetic neuropathy, unspecified; E44.0 Moderate protein-calorie malnutrition; Z79.84 Long term (current) use of oral hypoglycemic drugs; Z86.711 Personal history of pulmonary embolism; Z86.718 Personal history of other venous thrombosis and embolism; Y83.5 Amputation of limb(s) as the cause of abnormal reaction of the patient, or of later complication, without mention of misadventure at the time of the procedure ==

== ENCOUNTER → 2020-02-25 | Outpatient (CLI) | payer OTHER | LOC: HYPER 10:01 | PROVIDERS: ATTEND Emergency Medicine Emergency Medical Services | DX: T87.81 Dehiscence of amputation stump (principal); E11.621 Type 2 diabetes mellitus with foot ulcer; L97.514 Non-pressure chronic ulcer of other part of right foot with necrosis of bone; E11.69 Type 2 diabetes mellitus with other specified complication; M86.372 Chronic multifocal osteomyelitis, left ankle and foot; E11.40 Type 2 diabetes mellitus with diabetic neuropathy, unspecified; R60.0 Localized edema; E44.0 Moderate protein-calorie malnutrition; Z68.42 Body mass index [BMI] 45.0-49.9, adult; Z79.84 Long term (current) use of oral hypoglycemic drugs; Z86.14 Personal history of Methicillin resistant Staphylococcus aureus infection; Z86.711 Personal history of pulmonary embolism; Z86.718 Personal history of other venous thrombosis and embolism; Z79.82 Long term (current) use of aspirin; Y83.5 Amputation of limb(s) as the cause of abnormal reaction of the patient, or of later complication, without mention of misadventure at the time of the procedure ==